=== PATIENT | male | born 1965 | race American Indian/Alaskan Native ===

== ENCOUNTER 2017-09-20 16:00 | Emergency (ER) | payer SELFPAY ==
[2017-09-20 16:22] VITALS: BP 198/122
[2017-09-20 16:58] LABS: Basophils % (Auto) 0.6 % (0.0-1.8); Eosinophils % (Auto) 0.5 % (0.0-4.3); Hematocrit 45.7 % (35.5-45.6); Hemoglobin 15.5 gm/dl (11.8-15.2); Mean Corpuscular HGB Conc 34 % (32-34); Mean Corpuscular Hemoglobin 30 pg (28-32); Mean Corpuscular Volume 89 fl (84-94); Platelet Count 194 K/mm3 (140-440); Red Blood Count 5.16 M/mm3 (3.65-5.03); Red Cell Distribution Width 13.2 % (13.2-15.2); White Blood Count 7.7 K/mm3 (4.5-11.0)
[2017-09-20 17:08] LABS: INR 0.89 (0.87-1.13); Partial Thromboplastin Time 26.4 Sec. (24.2-36.6)
[2017-09-20 17:12] LABS: Anion Gap 15 mmol/L; BUN/Creatinine Ratio 16; Blood Urea Nitrogen 16 mg/dL (9-20); Calcium 9.4 mg/dL (8.4-10.2); Carbon Dioxide 31 mmol/L (22-30); Chloride 91.7 mmol/L (98-107); Potassium 4.8 mmol/L (3.6-5.0); Sodium 133 mmol/L (137-145)
[2017-09-20 17:26] LABS: Glucose 640 mg/dL (75-100)
== END 2017-09-20 22:15 | disposition left against medical advice (07) ==
LOC: ED 16:00
DX: R07.89 Other chest pain (principal); Z53.21 Procedure and treatment not carried out due to patient leaving prior to being seen by health care provider
CPT/HCPCS: 36415; 80048; 82805; 83880; 84484; 85025; 85610; 85730; 93005; 93010

== ENCOUNTER 2021-02-22 16:44 | Emergency (ER) | payer SELFPAY ==
--- NOTE | 2021-02-22 17:24 | Event Note ---
ED Screening Note ED Screening Note: 55-year-old F [place] male with known history of hypertension and diabetes presents emerged department complaining of polydipsia, chest pain, weakness, fatigue suspicion of a low blood sugar which always helped with ingestion of ice chips. States that the symptoms have began a couple days ago and have prog ressively worsened since the onset. And now he has began to experience some left-sided chest pain, associated with occasional shortness of breath. No lower extremity swelling, no hematuria no hematemesis hematochezia no known traumatic events. Examinations alert and oriented x2 no obvious respiratory distress his breath sounds are normal abdominal sounds are hyperactive [id number] blood glucose is 360 This initial assessment/diagnostic orders/clinical plan/treatment(s) is/are subject to change based on patients health status, clinical progression and re- assessment by fellow clinical providers in the ED. Further treatment and workup at subsequent clinical providers discretion. Patient/guardian urged not to elope from the ED as their condition may be serious if not clinically assessed and managed. Initial orders include: Plan evaluate his nausea vomiting abdomen, abdominal pain and chest pain with a cardiac work-up in conjunction with a evaluation of electrolytes
[2021-02-22 17:41] LABS: Hematocrit 45.8 % (35.5-45.6); Hemoglobin 15.5 gm/dl (11.8-15.2); Mean Corpuscular HGB Conc 34 % (32-34); Mean Corpuscular Volume 89 fl (84-94); Platelet Count 217 K/mm3 (140-440); Red Blood Count 5.16 M/mm3 (3.65-5.03); Red Cell Distribution Width 13.8 % (13.2-15.2)
[2021-02-22 17:58] LABS: Alanine Aminotransferase 11 units/L (7-56); BUN/Creatinine Ratio 10; Blood Urea Nitrogen 12 mg/dL (9-20); Hemolysis Index 10
--- NOTE | 2021-02-22 18:00 | XRay Report ---
CHEST 2 VIEWS INDICATION / CLINICAL INFORMATION: Weakness. COMPARISON: None available. FINDINGS: SUPPORT DEVICES: None. HEART / MEDIASTINUM: No significant abnormality. LUNGS / PLEURA: No significant pulmonary or pleural abnormality. No pneumothorax. ADDITIONAL FINDINGS: There is spondylitic change in the thoracic spine IMPRESSION: 1. No acute findings. Signer Name: Chaka Yao MD Signed: 02/22/2021 5:55 PM Workstation Name: [id number]
[2021-02-22 18:15] LABS: Total Cells Counted 100
[2021-02-22 18:16] LABS: RBC Morphology Normal
[2021-02-22] MEDS ORDERED: SODIUM CHLORIDE 0.9% 1000 ML 1,000 ML IV ONE (23:05)
--- NOTE | 2021-02-22 23:05 | Emergency Department Report ---
- General Chief complaint: Weakness Stated complaint: GENERAL WEAKNESS Time Seen by Provider: 02/22/21 22:54 Source: patient Mode of arrival: Wheelchair Limitations: No Limitations - History of Present Illness Initial comments: 55-year-old male, history of hypertension, diabetes, CHF, presents to ED with generalized weakness since yesterday. Patient reports he has been having vo miting and diarrhea. He denies any cough or fever. Patient does report headache. Patient is hypertensive, states he is compliant with his BP meds. Patient denies any sick contacts. States he lives with his and daughter, who both contracted COVID-19 2 months ago. Patient states he never came down with COVID-19. He tested negative at that time. He has not yet received his COVID-19 vaccine. Patient hypertensive. States he did not take his blood pressure medication today. States the paramedics told him not to take it since he was coming to the emergency room. MD Complaint: generalized weakness -: days(s) (2) Location: generalized Severity: moderate Consistency: constant Improves with: none Worsens with: none Associated Symptoms: headaches, nausea/vomiting, shortness of breath. denies: fever/chills - Related Data Home Medications Medication Instructions Recorded Confirmed Last Taken cloNIDine [Catapres] 0.1 mg PO BID 08/24/15 09/18/15 09/17/15 Previous Rx's Medication Instructions Recorded Last Taken Type Aspirin [Aspirin BABY CHEW TAB] 81 mg PO QDAY #30 tab.chew 03/20/14 09/17/15 Rx Insulin NPH/Regular [NovoLIN 70/30] 10 units SQ QAM #30 dose 03/20/14 09/17/15 Rx Sertraline [Zoloft] 75 mg PO QAM #30 tablet 03/20/14 09/17/15 Rx Simvastatin (Nf) [Zocor TAB] 20 mg PO QHS #30 tablet 03/20/14 09/17/15 Rx amLODIPine [Norvasc] 10 mg PO DAILY #30 tab 03/17/20 Unknown Rx hydroCHLOROthiazide [Hctz] 12.5 mg PO QDAY #30 capsule 03/17/20 Unknown Rx Ondansetron [Zofran Odt] 4 mg PO Q8HR PRN #20 tab.rapdis 02/23/21 Unknown Rx traZODone [Desyrel] 50 mg PO QHS #30 tablet 02/23/21 Unknown Rx Allergies Allergy/AdvReac Type Severity Reaction Status Date / Time Penicillins Allergy Hives Verified 09/20/17 16:18 ED Review of Systems ROS: Stated complaint: GENERAL WEAKNESS Other details as noted in HPI Comment: All other systems reviewed and negative Constitutional: denies: chills, fever ENT: other (Denies loss of smell or taste) Gastrointestinal: nausea, vomiting, diarrhea. denies: abdominal pain Neurological: headache ED Past Medical Hx - Past Medical History Previous Medical History?: Yes Hx Hypertension: Yes Hx CVA: No Hx Heart Attack/AMI: No Hx Congestive Heart Failure: Yes Hx Diabetes: Yes - Social History Smoking Status: Never Smoker Substance Use Type: None - Medications Home Medications: Home Medications Medication Instructions Recorded Confirmed Last Taken Type Aspirin [Aspirin BABY CHEW TAB] 81 mg PO QDAY #30 tab.chew 03/20/14 09/18/15 09/17/15 Rx Insulin NPH/Regular [NovoLIN 70/30] 10 units SQ QAM #30 dose 03/20/14 09/18/15 09/17/15 Rx Sertraline [Zoloft] 75 mg PO QAM #30 tablet 03/20/14 09/18/15 09/17/15 Rx Simvastatin (Nf) [Zocor TAB] 20 mg PO QHS #30 tablet 03/20/14 09/18/15 09/17/15 Rx cloNIDine [Catapres] 0.1 mg PO BID 08/24/15 09/18/15 09/17/15 History amLODIPine [Norvasc] 10 mg PO DAILY #30 tab 03/17/20 Unknown Rx hydroCHLOROthiazide [Hctz] 12.5 mg PO QDAY #30 capsule 03/17/20 Unknown Rx Ondansetron [Zofran Odt] 4 mg PO Q8HR PRN #20 tab.rapdis 02/23/21 Unknown Rx traZODone [Desyrel] 50 mg PO QHS #30 tablet 02/23/21 Unknown Rx ED Physical Exam - General Limitations: No Limitations General appearance: alert, in no apparent distress - Head Head exam: Present: atraumatic, normocephalic - Eye Eye exam: Present: other (Patient is blind) - ENT ENT exam: Present: mucous membranes moist - Neck Neck exam: Present: normal inspection - Respiratory Respiratory exam: Present: normal lung sounds bilaterally. Absent: respiratory distress - Cardiovascular Cardiovascular Exam: Present: regular rate, normal rhythm - GI/Abdominal GI/Abdominal exam: Present: soft. Absent: distended, tenderness - Extremities Exam Extremities exam: Present: normal inspection - Neurological Exam Neurological exam: Present: alert, oriented X3, CN II-XII intact. Absent: motor sensory deficit - Psychiatric Psychiatric exam: Present: normal affect, normal mood - Skin Skin exam: Present: warm, dry, intact, normal color ED Course Vital Signs 02/22/21 02/22/21 02/22/21 16:59 22:42 22:46 Temperature 97.8 F Pulse Rate 98 H 90 89 Respiratory 18 27 H 24 Rate Blood Pressure 205/109 Blood Pressure 178/109 [Right] O2 Sat by Pulse 98 98 98 Oximetry 02/22/21 02/22/21 02/22/21 23:00 23:16 23:24 Temperature Pulse Rate 84 86 87 Respiratory 21 24 21 Rate Blood Pressure 205/109 224/107 224/107 Blood Pressure [Right] O2 Sat by Pulse 98 98 97 Oximetry 02/22/21 02/23/21 02/23/21 23:30 00:09 00:16 Temperature Pulse Rate 96 H Respiratory 19 Rate Blood Pressure 224/107 224/107 224/107 Blood Pressure [Right] O2 Sat by Pulse 97 98 97 Oximetry 02/23/21 02/23/21 02/23/21 00:18 00:30 00:46 Temperature Pulse Rate 84 Respiratory Rate Blood Pressure 224/107 179/101 179/101 Blood Pressure [Right] O2 Sat by Pulse 97 97 Oximetry 02/23/21 02/23/21 02/23/21 01:00 01:16 01:28 Temperature Pulse Rate 79 Respiratory 20 Rate Blood Pressure 157/96 157/96 Blood Pressure [Right] O2 Sat by Pulse 97 97 97 Oximetry 02/23/21 02/23/21 02/23/21 01:30 01:46 02:00 Temperature Pulse Rate 77 83 79 Respiratory 20 19 15 Rate Blood Pressure 190/105 190/105 173/97 Blood Pressure [Right] O2 Sat by Pulse 97 99 96 Oximetry ED Medical Decision Making - Lab Data Result diagrams: 02/22/21 17:30 02/22/21 17:30 - Radiology Data Radiology results: report reviewed, image reviewed - Medical Decision Making 55-year-old male presents to ED with generalized weakness, vomiting, diarrhea since yesterday. Also reports headache. Patient is hypertensive, but states that he did not take his blood pressure medication today. Patient given IV labetalol here in the ED with improvement of his blood pressure. Labs show very mild leukocytosis. Patient is hyperglycemic with glucose of 340, however he does not appear to be in DKA. Patient given 1 L bolus of IV fluids. CT abdomen pelvis was obtained which shows likely enteritis. Patient informed of incidental pulmonary nodules and need for follow-up. UA is negative for any evidence of UTI. Patient has not had any episodes of vomiting or diarrhea here in the ED. Requested refill for his trazodone. Patient will be discharged at this time with prescriptions. Outpatient follow-up advised. Return precautions given. - Differential Diagnosis UTI, pneumonia, gastroenteritis, dehydration Critical care attestation.: If time is entered above; I have spent that time in minutes in the direct care of this critically ill patient, excluding procedure time. ED Disposition Clinical Impression: Enteritis, Hyperglycemia, Uncontrolled hypertension Disposition: - TO HOME OR SELFCARE Is pt being admited?: No Condition: Stable Instructions: Viral Gastroenteritis, Adult, [id number], Hyperglycemia, [id number], Hypertension (ED) Additional Instructions: Your CAT scan shows a few small nodules in the bases of your lungs. This is an incidental finding. It is recommended that you follow-up with your primary care physician to arrange possible follow-up CAT scan in 12 months. Prescriptions: traZODone [Desyrel] 50 mg PO QHS #30 tablet Ondansetron [Zofran Odt] 4 mg PO Q8HR PRN #20 tab.rapdis PRN Reason: Vomiting Referrals: [facility] [Provider Group] - 3-[address] [facility] [place] [Outside] - 3-5 Days Time of Disposition: 01:49
--- NOTE | 2021-02-23 00:20 | Cat Scan Report ---
CT head without contrast HISTORY: Patient complains of a headache, History of Hypertension. TECHNIQUE: Axial imaging performed from the skull apex through the skull base without the use of con trast. All CT scans at this location are performed using CT dose reduction for ALARA by means of aut omated exposure control. COMPARISON: CT head from 09/18/2015 FINDINGS: Parenchyma: No acute intracranial hemorrhage or parenchymal abnormality. Periventricular hypodensiti es are likely in keeping with microangiopathy. Probable old infarct versus prominent microangiopathy in the left centrum semiovale. Ventricles: There is mild diffuse brain atrophy with commensurate ventricular enlargement which is l ikely age appropriate. Soft tissues: Soft tissues including the orbits appear normal. Bones: No acute osseous abnormality. Sinuses: Sinuses and mastoid air cells are clear. IMPRESSION: No acute abnormality. Signer Name: Ronnell Ruffin MD Signed: 02/23/2021 12:16 AM Workstation Name: [id number]
--- NOTE | 2021-02-23 00:33 | Cat Scan Report ---
CT ABDOMEN AND PELVIS WITH CONTRAST HISTORY: Pt complains of "Generalized" weakness, vomiting diarrhea. COMPARISON: None. TECHNIQUE: CT images of the abdomen and pelvis were obtained following administration of intravenous contrast. All CT scans at this location are performed using CT dose reduction for ALARA by means of automated exposure control. CONTRAST: 100 ml of intravenous contrast administered. FINDINGS: Lungs/bones: There are a few 2-3 mm pleural-based nodules in both lower lobes with no consolidation or effusion. Degenerative changes are present in the spine with nothing acute. Abdomen/pelvis: The liver, gallbladder, spleen, pancreas, adrenals, kidneys, and proximal GI tract a ppear unremarkable. The urinary bladder is unremarkable. Prostate is enlarged and indents the bladder base. No pelvic vick e fluid. No acute colonic abnormality identified. The proximal colon is difficult to visualize on thi s exam and there is diffuse haziness with mucosal enhancement throughout the right mid abdomen but no obvious obstructive change, perforation, or abscess. IMPRESSION: 1. Nonspecific findings in the right mid abdomen could be seen with enteritis. No obstruction or perf oration. 2. Pulmonary nodules in both lung bases as above. Please see below recommendations. INCIDENTAL PULMONARY NODULE RECOMMENDATION RECOMMENDATION: Solid Nodule size <6 mm -- Single or Multiple - Low Risk Patient: No routine follow-up - High Risk Patient: Optional CT at 12 months Note These recommendations do not apply to lung cancer screening, patients with immunosuppression, o r patients with known primary cancer. Note Newly detected indeterminate nodule in persons 35 years of age or older. Persons under the age of 35 should not receive follow-up unless there is a known primary cancer. Note A Perifissural Nodule is a fissure-attached/subpleural, homogeneous, solid nodule that had smoo th margins and an oval, lentiform, or triangular shape. They represent about 20% of nodules detected in lung cancer screening, are invariably benign, and do not require follow-up. Nodules 10 mm or large r (or those with suspicious features) will continue to be managed based on the size criteria. Low Risk Patient -- minimal or absent history of smoking and of other known risk factors. High Risk Patient -- history of smoking or of other known risk factors. Nodule dimensions are average of long and short axes, rounded to the nearest millimeter. Based on 2017 Fleischner Society Guidelines found in Radiology 2017 284:228-243. https://doi.org/10.1148/radiol.[email or web address] https://www.ncbi.nlm.nih.gov/pmc/articles/YWT1166178/ Signer Name: Ronnell Ruffin MD Signed: 02/23/2021 12:29 AM Workstation Name: [id number]
[2021-02-23 01:31] LABS: Bilirubin,Urine NEG (Negative); Blood,Urine NEG (Negative); Color,Urine Yellow (Yellow); Mucus,Urine FEW /HPF; Urobilinogen,Urine < 2.0 mg/dL (<2.0)
[2021-02-23 01:33] LABS: Protein,Urine >500 mg/dL (Negative)
[2021-02-23 02:17] VITALS: BP 173/97
== END 2021-02-23 02:10 | disposition home or self-care (01) ==
LOC: ED 16:44
DX: I11.0 Hypertensive heart disease with heart failure (principal); I50.9 Heart failure, unspecified; E11.65 Type 2 diabetes mellitus with hyperglycemia; K52.9 Noninfective gastroenteritis and colitis, unspecified; Z88.0 Allergy status to penicillin; Z79.899 Other long term (current) drug therapy
CPT/HCPCS: 36415; 70450; 71046; 74177; 80053; 81001; 82962; 83690; 83735; 84484; 85007; 85025; 96361; 96374; 99285; J7030; Q9967

== ENCOUNTER 2021-05-02 15:38 | Inpatient (IN) | payer MEDICAID, OTHER ==
[2021-05-02] MEDS ORDERED: cloNIDine 0.2 MG TAB PO ONE (16:07)
[2021-05-02 16:23] LABS: Basophils % (Auto) 0.5 % (0.0-1.8); Eosinophils % (Auto) 0.4 % (0.0-4.3); Hematocrit 42.5 % (35.5-45.6); Hemoglobin 14.1 gm/dl (11.8-15.2); Lymphocytes # (Auto) 1.5 K/mm3 (1.2-5.4); Lymphocytes % (Auto) 25.5 % (13.4-35.0); Mean Corpuscular HGB Conc 33 % (32-34); Mean Corpuscular Volume 89 fl (84-94); Monocytes # (Auto) 0.3 K/mm3 (0.0-0.8); Monocytes % (Auto) 5.1 % (0.0-7.3); Platelet Count 225 K/mm3 (140-440); Red Blood Count 4.78 M/mm3 (3.65-5.03); Red Cell Distribution Width 13.4 % (13.2-15.2)
[2021-05-02 16:39] LABS: Albumin 3.3 g/dL (3.9-5); Calcium 8.8 mg/dL (8.4-10.2)
[2021-05-02] MEDS ORDERED: amLODIPine 5 MG TAB PO ONE (17:06)
[2021-05-02] MEDS ORDERED: INSULIN REGULAR, HUMAN 100 UNITS/1 ML IV ONE (17:06)
--- NOTE | 2021-05-02 17:07 | Emergency Department Report ---
ED General Adult HPI - General Chief complaint: Hyperglycemia Stated complaint: BLOOD PRESSURE/ANXIETY/DIABETIC PUI?: No Time Seen by Provider: 05/02/21 16:53 Source: patient, RN notes reviewed, old records reviewed Mode of arrival: Ambulatory Limitations: Physical Limitation - History of Present Illness Initial comments: The patient is a 55-year-old gentleman. His history includes poorly controlled diabetes, hypertension, and he reports chronic visual issues for the past year. He does not have a local primary care doctor, ran out of his lisinopril 1 month ago. He also reports that he is currently taking insulin 70/30, which she gets at one of the local free facilities. The patient presents to the ER today with a complaint of painless anxiety, painless sensation of nonspecific changes in his vision, and elevated blood pressure. He denies headache, neck pain, chest pain, abdominal pain, shortness of breath, extremity weakness/numbness, Covid symptomatology. He reports that he is typically dependent on his to assist him with walking. He has not seen an scientific editor or fender mechanic, has not had a dilat ed posterior chamber examination that he is aware of. He reports that he feels like his vision is now back to its baseline, where he can perceive colors and shapes. He also reports that his anxiety and paranoia have resolved. He did report that while experiencing his nonspecific changes in vision earlier on today, he began to feel anxious and paranoid. However, this is now resolved. 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 -: Sudden Consistency: now resolved Improves with: none Worsens with: none - Related Data Home Medications Medication Instructions Recorded Confirmed Last Taken cloNIDine [Catapres] 0.1 mg PO BID 08/24/15 09/18/15 09/17/15 Previous Rx's Medication Instructions Recorded Last Taken Type Aspirin [Aspirin BABY CHEW TAB] 81 mg PO QDAY #30 tab.chew 03/20/14 09/17/15 Rx Insulin NPH/Regular [NovoLIN 70/30] 10 units SQ QAM #30 dose 03/20/14 09/17/15 Rx Sertraline [Zoloft] 75 mg PO QAM #30 tablet 03/20/14 09/17/15 Rx Simvastatin (Nf) [Zocor TAB] 20 mg PO QHS #30 tablet 03/20/14 09/17/15 Rx amLODIPine [Norvasc] 10 mg PO DAILY #30 tab 03/17/20 Unknown Rx hydroCHLOROthiazide [Hctz] 12.5 mg PO QDAY #30 capsule 03/17/20 Unknown Rx Ondansetron [Zofran Odt] 4 mg PO Q8HR PRN #20 tab.rapdis 02/23/21 Unknown Rx traZODone [Desyrel] 50 mg PO QHS #30 tablet 02/23/21 Unknown Rx Allergies Allergy/AdvReac Type Severity Reaction Status Date / Time Penicillins Allergy Hives Verified 09/20/17 16:18 ED Review of Systems ROS: Stated complaint: BLOOD PRESSURE/ANXIETY/DIABETIC Other details as noted in HPI Constitutional: denies: fever Eyes: vision change ENT: denies: epistaxis Respiratory: denies: cough Cardiovascular: denies: chest pain Genitourinary: denies: dysuria Neurological: denies: headache, weakness, numbness, paresthesias Psychiatric: anxiety Hematological/Lymphatic: denies: easy bleeding ED Past Medical Hx - Past Medical History Hx Hypertension: Yes Hx CVA: No Hx Heart Attack/AMI: No Hx Congestive Heart Failure: Yes Hx Diabetes: Yes Hx Psychiatric Treatment: Yes (anxiety) - Surgical History Past Surgical History?: No - Social History Smoking Status: Never Smoker Substance Use Type: None - Medications Home Medications: Home Medications Medication Instructions Recorded Confirmed Last Taken Type Aspirin [Aspirin BABY CHEW TAB] 81 mg PO QDAY #30 tab.chew 03/20/14 09/18/15 09/17/15 Rx Insulin NPH/Regular [NovoLIN 70/30] 10 units SQ QAM #30 dose 03/20/14 09/18/15 09/17/15 Rx Sertraline [Zoloft] 75 mg PO QAM #30 tablet 03/20/14 09/18/15 09/17/15 Rx Simvastatin (Nf) [Zocor TAB] 20 mg PO QHS #30 tablet 03/20/14 09/18/15 09/17/15 Rx cloNIDine [Catapres] 0.1 mg PO BID 08/24/15 09/18/15 09/17/15 History amLODIPine [Norvasc] 10 mg PO DAILY #30 tab 03/17/20 Unknown Rx hydroCHLOROthiazide [Hctz] 12.5 mg PO QDAY #30 capsule 03/17/20 Unknown Rx Ondansetron [Zofran Odt] 4 mg PO Q8HR PRN #20 tab.rapdis 02/23/21 Unknown Rx traZODone [Desyrel] 50 mg PO QHS #30 tablet 02/23/21 Unknown Rx ED Physical Exam - General Limitations: Physical Limitation General appearance: alert, in no apparent distress - Head Head exam: Present: atraumatic, normocephalic - Eye Eye exam: Present: normal appearance, PERRL, EOMI, other (Patient is able to perceive color, but cannot count shapes at a close distance). Absent: nystagmus - ENT ENT exam: Present: normal exam, normal orophraynx, mucous membranes moist, normal external ear exam - Neck Neck exam: Present: normal inspection, full ROM. Absent: tenderness, meningismus - Respiratory Respiratory exam: Present: normal lung sounds bilaterally. Absent: respiratory distress, wheezes, rales, rhonchi, stridor, decreased breath sounds - Cardiovascular Cardiovascular Exam: Present: regular rate, normal rhythm, normal heart sounds. Absent: bradycardia, tachycardia, irregular rhythm, systolic murmur, diastolic murmur, rubs, gallop - GI/Abdominal GI/Abdominal exam: Present: soft. Absent: distended, tenderness, guarding, rebound, rigid, pulsatile mass - Rectal Rectal exam: Present: deferred - Extremities Exam Extremities exam: Present: normal inspection, full ROM, other (2+ pulses noted in the bilateral upper and lower extremities. There is no palpable cord. negative Homans sign. Muscular compartments are soft. The pelvis is stable.). Absent: pedal edema, calf tenderness - Back Exam Back exam: Present: normal inspection, full ROM. Absent: tenderness, CVA tenderness (R), CVA tenderness (L), paraspinal tenderness, vertebral tenderness - Neurological Exam Neurological exam: Present: alert, other (No facial droop. Tongue midline. Extraocular movements intact bilaterally. Facial sensation intact to light touch in V1, V2, V3 distribution bilaterally. 5 and a 5 strength in 4 extremities. Sensation intact to light touch in 4 extremities.) - Psychiatric Psychiatric exam: Present: anxious - Skin Skin exam: Present: warm, dry, intact, normal color. Absent: rash ED Course Vital Signs 05/02/21 05/02/21 15:54 18:43 Temperature 98.5 F Pulse Rate 80 Respiratory 20 Rate Blood Pressure 220/118 211/79 [Right] O2 Sat by Pulse 96 Oximetry - Reevaluation(s) Reevaluation #1: 05/02/21 17:59 Differential diagnosis, including but not limited to: Hypertensive retinopathy, diabetic retinopathy, TIA, press syndrome, hypertensive emergency/emergency Assessment and plan: 55-year-old gentleman, who is afebrile, with hypertension, but otherwise reassuring vital signs, who is clinically sober with a GCS of 15, evidence of hyperglycemia, without anion gap acidosis, GFR 58, pseudohyponatremia, with a complaint of hypertension, anxiety, and nonspecific visual changes. He however reports that his visual symptoms are back to baseline. His examination at this time is not suggestive of a large vessel occlusion. He is back to his baseline neurologically by his history, therefore, TPA is not indicated. Emergent CT angiogram is unlikely to be of benefit. Noncontrast CT scan of the brain is requested. IV fluids and insulin ordered for hyperglycemia. Have requested neurology consultation, I discussed the patient's history, physi valeria, laboratory studies and clinical impression with neurologist, Dr. Lu. He is evaluating the patient at this moment. Patient will likely require admission to the hospital for glycemic control, blood pressure control, acquisition of MRI Have discussed this plan of care with the patient, who verbalized understanding, and is amenable to this plan of care. Patient is not encephalopathic, he does not have a headache at this time, I think press syndrome is unlikely. 05/02/21 18:20 Neurology recommendations are reviewed and appreciated. Noncontrast CT scan of the brain to my interpretation appears to be negative for acute findings. Hydralazine ordered. Formal CT interpretation is pending. Hospital physician, Dr. Rehman to admit patient to the medical service. ED Medical Decision Making - Lab Data Result diagrams: 05/02/21 16:06 05/02/21 16:06 Vital Signs 05/02/21 15:54 Temperature 98.5 F Pulse Rate 80 Respiratory 20 Rate Blood Pressure 220/118 [Right] O2 Sat by Pulse 96 Oximetry Lab Results 05/02/21 05/02/21 05/02/21 Range/Units 15:53 16:06 16:06 WBC 6.0 (4.5-11.0) K/mm3 RBC 4.78 (3.65-5.03) M/mm3 Hgb 14.1 (11.8-15.2) gm/dl Hct 42.5 (35.5-45.6) % MCV 89 (84-94) fl MCH 30 (28-32) pg MCHC 33 (32-34) % RDW 13.4 (13.2-15.2) % Plt Count 225 (140-440) K/mm3 Lymph % (Auto) 25.5 (13.4-35.0) % [place] % (Auto) 5.1 (0.0-7.3) % Eos % (Auto) 0.4 (0.0-4.3) % Baso % (Auto) 0.5 (0.0-1.8) % Lymph # (Auto) 1.5 (1.2-5.4) K/mm3 [place] # (Auto) 0.3 (0.0-0.8) K/mm3 Eos # (Auto) 0.0 (0.0-0.4) K/mm3 Baso # (Auto) 0.0 (0.0-0.1) K/mm3 Seg Neutrophils % 68.5 (40.0-70.0) % Seg Neutrophils # 4.1 (1.8-7.7) K/mm3 VBG pH (7.320-7.420) Sodium 132 L (137-145) mmol/L Potassium 3.8 (3.6-5.0) mmol/L Chloride 94.9 L (98-107) mmol/L Carbon Dioxide 29 (22-30) mmol/L Anion Gap 12 mmol/L BUN 19 (9-20) mg/dL Creatinine 1.5 H (0.8-1.3) mg/dL Estimated GFR 58 ml/min BUN/Creatinine Ratio 13 % Glucose 449 H (75-100) mg/dL POC Glucose 463 H (70-105) mg/dL Calcium 8.8 (8.4-10.2) mg/dL Total Bilirubin 0.50 (0.1-1.2) mg/dL AST 11 (5-40) units/L ALT 7 (7-56) units/L Alkaline Phosphatase 93 (35-129) units/L Total Protein 6.5 (6.3-8.2) g/dL Albumin 3.3 L (3.9-5) g/dL Albumin/Globulin Ratio 1.0 % // Range/Units 16:06 WBC (4.5-11.0) K/mm3 RBC (3.65-5.03) M/mm3 Hgb (11.8-15.2) gm/dl Hct (35.5-45.6) % MCV (84-94) fl MCH (28-32) pg MCHC (32-34) % RDW (13.2-15.2) % Plt Count (140-440) K/mm3 Lymph % (Auto) (13.4-35.0) % [place] % (Auto) (0.0-7.3) % Eos % (Auto) (0.0-4.3) % Baso % (Auto) (0.0-1.8) % Lymph # (Auto) (1.2-5.4) K/mm3 [place] # (Auto) (0.0-0.8) K/mm3 Eos # (Auto) (0.0-0.4) K/mm3 Baso # (Auto) (0.0-0.1) K/mm3 Seg Neutrophils % (40.0-70.0) % Seg Neutrophils # (1.8-7.7) K/mm3 VBG pH 7.382 (7.320-7.420) Sodium (137-145) mmol/L Potassium (3.6-5.0) mmol/L Chloride (98-107) mmol/L Carbon Dioxide (22-30) mmol/L Anion Gap mmol/L BUN (9-20) mg/dL Creatinine (0.8-1.3) mg/dL Estimated GFR ml/min BUN/Creatinine Ratio % Glucose (75-100) mg/dL POC Glucose (70-105) mg/dL Calcium (8.4-10.2) mg/dL Total Bilirubin (0.1-1.2) mg/dL AST (5-40) units/L ALT (7-56) units/L Alkaline Phosphatase (35-129) units/L Total Protein (6.3-8.2) g/dL Albumin (3.9-5) g/dL Albumin/Globulin Ratio % - EKG Data EKG shows normal: sinus rhythm Rate: normal - EKG Data 05/02/21 18:02 The EKG is interpreted at 17: 50 Sinus rhythm, 74 bpm, left axis deviation, borderline left anterior fascicular block, left ventricular hypertrophy, nonspecific T wave inversions and abnormalities. This is an abnormal EKG. This is not a STEMI. When compared to prior EKG from September 2017, T wave inversion V3, appears to be new. T wave inversions in the lateral leads appear to be more prominent. This is not a [place]. PVC noted - Radiology Data Radiology results: pending, report reviewed, image reviewed CT head/brain wo con INDICATION / CLINICAL INFORMATION: 55 years Male; htn, visual changes. TECHNIQUE: Routine CT head without contrast. All CT scans at this location are performed using CT dose reduction for ALARA by means of automated exposure control. COMPARISON: 02/22/2021 FINDINGS: BRAIN / INTRACRANIAL CONTENTS: Small lacunar infarcts seen in the right thalamic region. This finding is seen on prior. Otherwise, no acute hemorrhage, mass effect, midline shift, hydrocephalus, or acute, large territorial infarct. No signs of significant atrophy or chronic infarct. There are mild areas of decreased attenuation in the white matter of the cerebral hemispheres. These are nonspecific findings and may be related to microangiopathy (hypertension, diabetes, atherosclerosis), given the patient's age. CRANIOCERVICAL JUNCTION: No significant abnormality. ORBITS: No significant abnormality of visualized orbits. SINUSES / MASTOIDS: Visualized paranasal sinuses and mastoid air cells are essentially clear. ADDITIONAL FINDINGS: None. IMPRESSION: 1. No focal mass, hemorrhage, hydrocephalus, or acute, large territorial infarct. Signer Name: Frandy Browning MD, III Signed: 05/02/2021 5:40 PM Workstation Name: [id number] Critical Care Time: Yes Critical care time in (mins) excluding proc time.: 35 Critical care attestation.: If time is entered above; I have spent that time in minutes in the direct care of this critically ill patient, excluding procedure time. ED Disposition Clinical Impression: Hyperglycemia, Visual changes, Hypertensive urgency, malignant, Noncompliance Disposition: OP ADMIT IP TO THIS HOSP Is pt being admited?: Yes Does the pt Need Aspirin: No Condition: Good
[2021-05-02] MEDS ORDERED: hydrALAZINE 20 MG/1 ML INJ IV ONE ×2 (17:39→18:15)
--- NOTE | 2021-05-02 18:03 | Consultation ---
Medications and Allergies Allergies Allergy/AdvReac Type Severity Reaction Status Date / Time Penicillins Allergy Hives Verified 09/20/17 16:18 Home Medications Medication Instructions Recorded Confirmed Last Taken Type Aspirin [Aspirin BABY CHEW TAB] 81 mg PO QDAY #30 tab.chew 03/20/14 09/18/1510/20 Rx Insulin NPH/Regular [NovoLIN 70/30] 10 units SQ QAM #30 dose 03/20/14 09/18/15 09/17/15 Rx Sertraline [Zoloft] 75 mg PO QAM #30 tablet 03/20/14 09/18/15 09/17/15 Rx Simvastatin (Nf) [Zocor TAB] 20 mg PO QHS #30 tablet 03/20/14 09/18/15 09/17/15 Rx cloNIDine [Catapres] 0.1 mg PO BID 08/24/15 09/18/15 09/17/15 History amLODIPine [Norvasc] 10 mg PO DAILY #30 tab 03/17/20 Unknown Rx hydroCHLOROthiazide [Hctz] 12.5 mg PO QDAY #30 capsule 03/17/20 Unknown Rx Ondansetron [Zofran Odt] 4 mg PO Q8HR PRN #20 tab.rapdis 02/23/21 Unknown Rx traZODone [Desyrel] 50 mg PO QHS #30 tablet 02/23/21 Unknown Rx Physical Examination - Vital Signs Vital Signs: Vital Signs Temp Pulse Resp BP Pulse Ox 98.5 F 80 20 220/118 96 05/02/21 15:54 05/02/21 15:54 05/02/21 15:54 05/02/21 15:54 05/02/21 15:54 Results - Laboratory Findings CBC and BMP: 05/02/21 16:06 05/02/21 16:06 Abnormal Lab Findings: Abnormal Labs 05/02/21 05/02/21 15:53 16:06 Sodium 132 L Chloride 94.9 L Creatinine 1.5 H Glucose 449 H POC Glucose 463 H Albumin 3.3 L Assessment and Plan [facility] Consult Note # Demographics Consult Type: General Neurology Patient Location: Emergency Room First Name: Jose M Last Name: Soren Date of : 1965 Age: 55 Gender: Male Time of Initial Page (Eastern Time): 05/02/2021, 17:42 Time of Return Call (Eastern Time): 05/02/2021, 17:42 # HPI Chief Complaint: Vision History: 55 yo man with history of DM, HTN, 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 He states his vision was a little different but can't describe how. He denies any headache, numbness, weakness, speech changes. # Scores Time of exam and NIHSS (Eastern Time): 05/02/2021, 17:55 Level of Consciousness 1a: [0] = Alert; keenly responsive LOC Questions 1b: [0] = Answers both questions correctly LOC Commands 1c: [0] = Performs both tasks correctly Best Gaze 2: [0] = Normal Visual 3: [2] = Complete hemianopia Facial Palsy 4: [0] = Normal symmetrical movements Motor Arm Left 5a: [0] = No drift Motor Arm Right 5b: [0] = No drift Motor Leg Left 6a: [0] = No drift Motor Leg Right 6b: [0] = No drift Limb Ataxia 7: [0] = Absent Sensory 8: [0] = Normal Best Language 9: [0] = No aphasia Dysarthria 10: [0] = Normal Extinction and Inattention 11: [0] = No abnormality NIHSS Total: 2 # Exam SBP: 239 DBP: 135 Mental Status: awake alert and oriented x 3 follows commands # PMH-FH-SH Past Medical History: Diabetes hypertension Social History: non-smoker non-drinker Medications: diabetic medication non-compliant with medications aspirin 81 mg daily Allergies: penicillin # Assessment Impression: Subjective vision changes in setting of significantly elevated BP. Differential includes hypertensive urgency, PRES, stroke. # Plan Thrombolytic/Intervention: NOT IV Thrombolytic or IA Intervention Thrombolytic Exclusion: > 4.5 hours Intraarterial Exclusion: other Symptoms not suggestive of LVO Target Blood Pressure: SBP < 180 Imaging: (urgency: STAT): CT Head without contrast Imaging: (urgency: routine): MRI Brain without contrast DVT Prophylaxis: SCD chemical DVT prophylaxis Other: telemetry monitoring I have discussed my recommendations with the referring provider Additional Recommendations: - CT head without contrast stat in ED - If head CT negative recommend lowering BP to SBP goal < 180 for presumed hypertensive urgency - MRI brain without once admitted to further evaluate for PRES or Stroke. - If MRI brain negative would be more aggressive with BP lowering Disposition: admit # Logistics Telemedicine: Interactive 2 way audio and visual telecommunication technology was utilized during this visit
--- NOTE | 2021-05-02 18:44 | Cat Scan Report ---
CT head/brain wo con INDICATION / CLINICAL INFORMATION: 55 years Male; htn, visual changes. TECHNIQUE: Routine CT head without contrast. All CT scans at this location are performed using CT dos e reduction for ALARA by means of automated exposure control. COMPARISON: 02/22/2021 FINDINGS: BRAIN / INTRACRANIAL CONTENTS: Small lacunar infarcts seen in the right thalamic region. This finding is seen on prior. Otherwise, no acute hemorrhage, mass effect, midline shift, hydrocephalus, or acute, large territoria l infarct. No signs of significant atrophy or chronic infarct. There are mild areas of decreased attenuation in the white matter of the cerebral hemispheres. These are nonspecific findings and may be related to microangiopathy (hypertension, diabetes, atheroscleros is), given the patient's age. CRANIOCERVICAL JUNCTION: No significant abnormality. ORBITS: No significant abnormality of visualized orbits. SINUSES / MASTOIDS: Visualized paranasal sinuses and mastoid air cells are essentially clear. ADDITIONAL FINDINGS: None. IMPRESSION: 1. No focal mass, hemorrhage, hydrocephalus, or acute, large territorial infarct. Signer Name: Frandy Browning MD, III Signed: 05/02/2021 6:40 PM Workstation Name: [id number]
[2021-05-02] MEDS ORDERED: ASPIRIN 81 MG TAB CHEW PO ONE (18:47)
--- NOTE | 2021-05-02 19:55 | History and Physical Report ---
History of Present Illness Date of examination: 05/02/21 Date of admission: 05/02/2021 Chief complaint: Uncontrolled hypertension, uncontrolled diabetes and panic attack History of present illness: Patient is a 55-year-old male with a history of noncompliance with diabetes and hypertension. Patient ran out of his medications approximately 1 month ago has been taking some insulin. Presented to the ED with a chief complaint of nervousness anxiety. Patient stated he awakened and at breakfast became nervous scared anxious and unable to cope with surroundings. This was the cause of patient's initial presentation to the ED. Upon arrival in the ED patient was found to have hypertensive emergency with blood pressure 231/118 as well as uncontrolled diabetes. Patient also complained of vision loss therefore received initial neurology evaluation. Patient vision has not changed in 2 years. Patient stated he cannot make out colors very well he can make out sha pes and has a lot of blurry vision. But this is unchanged in 2 years. Asked patient 3 times in detail and he confirm that the vision changes are initially the same is over 2 years. A time. Patient stated that his anxiety got the best of him. Now he is more calm but still somewhat anxious. Patient has never had anxiety attack before. Cannot tell me what he was scared of. "If I knew what I was scared of I will figure it out" at present calm no chest pain no shortness of breath no dyspnea on exertion no headache. Initial CTs head findings negative Past History Past Medical History: diabetes, hypertension. denies: liver disease, PVD, pulmonary embolism, renal failure, seizures Past Surgical History: No surgical history Social history: full code, other (Lives with brother). denies: smoking, alcohol abuse, IV drug use Family history: hypertension Medications and Allergies Allergies Allergy/AdvReac Type Severity Reaction Status Date / Time Penicillins Allergy Hives Verified 09/20/17 16:18 Home Medications Medication Instructions Recorded Confirmed Last Taken Type Aspirin [Aspirin BABY CHEW TAB] 81 mg PO QDAY #30 tab.chew 03/20/14 09/18/15 09/17/15 Rx Insulin NPH/Regular [NovoLIN 70/30] 10 units SQ QAM #30 dose 03/20/14 09/18/15 09/17/15 Rx Sertraline [Zoloft] 75 mg PO QAM #30 tablet 03/20/14 09/18/15 09/17/15 Rx Simvastatin (Nf) [Zocor TAB] 20 mg PO QHS #30 tablet 03/20/14 09/18/15 09/17/15 Rx cloNIDine [Catapres] 0.1 mg PO BID 08/24/15 09/18/15 09/17/15 History amLODIPine [Norvasc] 10 mg PO DAILY #30 tab 03/17/20 Unknown Rx hydroCHLOROthiazide [Hctz] 12.5 mg PO QDAY #30 capsule 03/17/20 Unknown Rx Ondansetron [Zofran Odt] 4 mg PO Q8HR PRN #20 tab.rapdis 02/23/21 Unknown Rx traZODone [Desyrel] 50 mg PO QHS #30 tablet 02/23/21 Unknown Rx Review of Systems Constitutional: no weight loss, no weight gain, no fever, no chills, no sweats, no poor appetite, no daytime sleepiness, no chronic pain Eyes: bilateral: blurred vision, decreased vision Ears, nose, mouth and throat: no tinnitis, no decreased hearing, no hoarseness, no sore throat, no headache, no vertigo, no neck fullness/pressure Cardiovascular: high blood pressure, no chest pain, no orthopnea, no palpitations, no rapid/irregular heart beat, no edema, no syncope, no lightheadedness, no shortness of breath, no dyspnea on exertion, no paroxysmal nocturnal dyspnea, no claudication, no phlebitis, no leg edema Respiratory: no cough with sputum, no excessive sputum, no shortness of breath, no wheezing, no pleurisy, no pain, no sleep apnea, no respiratory infections, no other Gastrointestinal: no nausea, no diarrhea, no constipation, no change in bowel habits, no loss of appetite, no early satiety Genitourinary Male: no hematuria, no urinary hesitancy, no nocturia, no difficulties fathering child Musculoskeletal: no neck stiffness, no shooting arm pain, no low back pain, no leg numbness/tingling, no morning stiffness, no muscle cramps, no atrophy, no loss of height Neurological: loss of vision, no weakness, no syncope, no tremors, no convulsions, no confusion, no changes in smell/taste, no motor disturbance, no double vision, no hearing difficulties, no burning pain Psychiatric: anxiety, change in sleep habits, sleep disturbances, insomnia, depression, anxiety attacks, no memory loss, no hypersomnia, no change in appetite, no change in libido, no suicidal ideation, no disorientation, no hallucinations, no paranoia, no hopelessness, no anhedonia, no difficulties concentrating, no confusion, no irritability, no sadness/tearfullness, no mood swings Endocrine: no heat intolerance, no polyphagia, no polyuria, no nocturia, no flushing, no deepening of the voice, no thyroid mass, no high blood sugars, no low blood sugars Hematologic/Lymphatic: no easy bleeding, no thrombophilia Allergic/Immunologic: no persistent infections, no angioedema, no seasonal allergies Exam - Constitutional Vitals: Temp Pulse Resp BP Pulse Ox 98.5 F 75 18 178/109 97 05/02/21 15:54 05/02/21 19:35 05/02/21 19:35 05/02/21 19:35 05/02/21 19:35 General appearance: Present: no acute distress, well-nourished, other - EENT Eyes: Present: PERRL ENT: hearing intact, clear oral mucosa - Neck Neck: Present: supple, normal ROM - Respiratory Respiratory effort: normal Respiratory: bilateral: CTA - Cardiovascular Heart Sounds: Present: S1 & S2. Absent: rub, click - Extremities Extremities: pulses symmetrical, No edema Peripheral Pulses: within normal limits - Abdominal General gastrointestinal: Present: soft, non-tender, non-distended, normal bowel sounds Male genitourinary: Present: normal - Integumentary Integumentary: Present: clear, warm, dry - Musculoskeletal Musculoskeletal: gait normal, strength equal bilaterally - Psychiatric Psychiatric: appropriate mood/affect, intact judgment & insight - Neurologic Neurologic: CNII-XII intact, moves all extremities, other (No focal neurologic deficits. Cranial nerves intact 2-12. No neuropathy.) Results - Labs CBC & Chem 7: 05/02/21 16:06 05/02/21 16:06 Labs: Laboratory Last Values WBC 6.0 K/mm3 (4.5-11.0) 05/02/21 16:06 RBC 4.78 M/mm3 (3.65-5.03) 05/02/21 16:06 Hgb 14.1 gm/dl (11.8-15.2) 05/02/21 16:06 Hct 42.5 % (35.5-45.6) 05/02/21 16:06 MCV 89 fl (84-94) 05/02/21 16:06 MCH 30 pg (28-32) 05/02/21 16:06 MCHC 33 % (32-34) 05/02/21 16:06 RDW 13.4 % (13.2-15.2) 05/02/21 16:06 Plt Count 225 K/mm3 (140-440) 05/02/21 16:06 Lymph % (Auto) 25.5 % (13.4-35.0) 05/02/21 16:06 [place] % (Auto) 5.1 % (0.0-7.3) 05/02/21 16:06 Eos % (Auto) 0.4 % (0.0-4.3) 05/02/21 16:06 Baso % (Auto) 0.5 % (0.0-1.8) 05/02/21 16:06 Lymph # (Auto) 1.5 K/mm3 (1.2-5.4) 05/02/21 16:06 [place] # (Auto) 0.3 K/mm3 (0.0-0.8) 05/02/21 16:06 Eos # (Auto) 0.0 K/mm3 (0.0-0.4) 05/02/21 16:06 Baso # (Auto) 0.0 K/mm3 (0.0-0.1) 05/02/21 16:06 Seg Neutrophils % 68.5 % (40.0-70.0) 05/02/21 16:06 Seg Neutrophils # 4.1 K/mm3 (1.8-7.7) 05/02/21 16:06 VBG pH 7.382 (7.320-7.420) 05/02/21 16:06 Sodium 132 mmol/L (137-145) L 05/02/21 16:06 Potassium 3.8 mmol/L (3.6-5.0) 05/02/21 16:06 Chloride 94.9 mmol/L (98-107) L 05/02/21 16:06 Carbon Dioxide 29 mmol/L (22-30) 05/02/21 16:06 Anion Gap 12 mmol/L 05/02/21 16:06 BUN 19 mg/dL (9-20) 05/02/21 16:06 Creatinine 1.5 mg/dL (0.8-1.3) H 05/02/21 16:06 Estimated GFR 58 ml/min 05/02/21 16:06 BUN/Creatinine Ratio 13 % 05/02/21 16:06 Glucose 449 mg/dL (75-100) H 05/02/21 16:06 POC Glucose 463 mg/dL (70-105) H 05/02/21 15:53 Calcium 8.8 mg/dL (8.4-10.2) 05/02/21 16:06 Total Bilirubin 0.50 mg/dL (0.1-1.2) 05/02/21 16:06 AST 11 units/L (5-40) 05/02/21 16:06 ALT 7 units/L (7-56) 05/02/21 16:06 Alkaline Phosphatase 93 units/L (35-129) 05/02/21 16:06 Total Protein 6.5 g/dL (6.3-8.2) 05/02/21 16:06 Albumin 3.3 g/dL (3.9-5) L 05/02/21 16:06 Albumin/Globulin Ratio 1.0 % 05/02/21 16:06 - Imaging and Cardiology EKG: report reviewed, image reviewed CT Scan - head: image reviewed Assessment and Plan Advance Directives: Yes Plan of care discussed with patient/family: Yes - Patient Problems (1) Hypertensive emergency Status: Acute Plan to address problem: Patient with hypertensive emergency. Has been noncompliant with medications. Unlikely 5 mg of amlodipine and lisinopril can control patient's blood pressure anyway. Patient does not have a primary care doctor. Blood pressure most likely uncontrolled for quite some time. Has been out of medications for a month even if we start back lisinopril this should not help this patient's blood pressure. Head CT negative unlikely will need MRI patient has not had any neurologic deficits at all. Patient has diabetic retinopathy most likely exacerbated by hypertensive retinopathy. Will require outpatient ophthalmology evaluation. And control of underlying risk factors. -More aggressive control of blood pressure will bring systolic blood pressure down to 175. Will start p.o. cart Procardia XL 30 mg and titrate accordingly. -Also start CLAUDETTE inhibitor since patient is diabetic for renal protection -Anticipate early discharge 24-hour eval. 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 Will be more aggressive with blood pressure control start patient on insulin 70/30 10 units twice daily sliding scale and titrate accordingly. Will follow results of hemoglobin A1c. -We will also start patient on a statin since he has hypertension. And diabetes . (3) Depression Status: Acute Plan to address problem: We will resume Zoloft. Patient remains somewhat depressed. Panic attacks most likely coming from depression. We will also treat patient with Klonopin can be used as outpatient as needed panic attacks follow-up with primary care provider. (4) Panic attacks Status: Acute Plan to address problem: Klonopin as needed restart Zoloft.
[2021-05-02] MEDS ORDERED: oxyCODONE /ACETAMINOPHEN 5-325MG TAB PO PRN (20:03)
[2021-05-02] MEDS ORDERED: ZOLPIDEM 5 MG TAB PO PRN (20:03)
[2021-05-02] MEDS ORDERED: ONDANSETRON 4 MG/2 ML INJ IV PRN (20:03)
[2021-05-02] MEDS ORDERED: DEXTROSE 50% IN WATER (25GM) 50 ML SYRINGE IV PRN ×2 (20:10→21:03)
[2021-05-02] MEDS ORDERED: ENOXAPARIN 60 MG/0.6 ML INJ SUB-Q SCH (21:00)
[2021-05-02] MEDS ORDERED: NIFEdipine XL 30 MG TAB PO ONE (21:11)
[2021-05-02] MEDS ORDERED: NON-FORMULARY EACH (Simvastatin (Nf) 20 MG Tablet) PO SCH (22:00)
[2021-05-02] MEDS: LISINOPRIL 40 MG TAB PO SCH (23:37)
[2021-05-02] MEDS: cloNIDine 0.1 MG TAB PO SCH (23:37)
[2021-05-02] MEDS: PRAVASTATIN 40 MG TAB PO SCH (23:37)
[2021-05-02] MEDS: INSULIN LISPRO 100 UNIT/ML SUB-Q SCH (23:37)
[2021-05-02] MEDS: traZODone 50 MG TAB PO SCH (23:37)
[2021-05-03 06:03] LABS: Calcium 8.6 mg/dL (8.4-10.2)
--- NOTE | 2021-05-03 07:44 | Progress Note ---
Assessment and Plan Assessment and plan: Accelerated hypertension. Diabetes mellitus type 2. Depression. Panic attacks. 05/03/2021. Continue clonidine, Procardia and Zestril. BP better controlled. Psychiatry consultation for panic attacks. Continue SSRI and Accu-Cheks. History Interval history: No new issues overnight. Hospitalist Physical - Constitutional Vitals: Temp Pulse Resp BP Pulse Ox 98.0 F 66 18 154/93 97 05/03/21 04:33 05/03/21 07:34 05/03/21 04:33 05/03/21 04:33 05/03/21 04:33 General appearance: Present: no acute distress, well-nourished, other - EENT Eyes: Present: PERRL, EOM intact ENT: hearing intact, clear oral mucosa, dentition normal - Neck Neck: Present: supple, normal ROM - Respiratory Respiratory effort: normal Respiratory: bilateral: CTA - Cardiovascular Rhythm: regular Heart Sounds: Present: S1 & S2. Absent: gallop, rub - Extremities Extremities: no ischemia, No edema, Full ROM - Abdominal General gastrointestinal: soft, non-tender, non-distended, normal bowel sounds - Integumentary Integumentary: Present: clear, warm, dry - Neurologic Neurologic: CNII-XII intact, moves all extremities Results - Labs CBC & Chem 7: 05/02/21 16:06 05/03/21 05:16 Labs: Laboratory Last Values WBC 6.0 K/mm3 (4.5-11.0) 05/02/21 16:06 RBC 4.78 M/mm3 (3.65-5.03) 05/02/21 16:06 Hgb 14.1 gm/dl (11.8-15.2) 05/02/21 16:06 Hct 42.5 % (35.5-45.6) 05/02/21 16:06 MCV 89 fl (84-94) 05/02/21 16:06 MCH 30 pg (28-32) 05/02/21 16:06 MCHC 33 % (32-34) 05/02/21 16:06 RDW 13.4 % (13.2-15.2) 05/02/21 16:06 Plt Count 225 K/mm3 (140-440) 05/02/21 16:06 Lymph % (Auto) 25.5 % (13.4-35.0) 05/02/21 16:06 [place] % (Auto) 5.1 % (0.0-7.3) 05/02/21 16:06 Eos % (Auto) 0.4 % (0.0-4.3) 05/02/21 16:06 Baso % (Auto) 0.5 % (0.0-1.8) 05/02/21 16:06 Lymph # (Auto) 1.5 K/mm3 (1.2-5.4) 05/02/21 16:06 [place] # (Auto) 0.3 K/mm3 (0.0-0.8) 05/02/21 16:06 Eos # (Auto) 0.0 K/mm3 (0.0-0.4) 05/02/21 16:06 Baso # (Auto) 0.0 K/mm3 (0.0-0.1) 05/02/21 16:06 Seg Neutrophils % 68.5 % (40.0-70.0) 05/02/21 16:06 Seg Neutrophils # 4.1 K/mm3 (1.8-7.7) 05/02/21 16:06 VBG pH 7.382 (7.320-7.420) 05/02/21 16:06 Sodium 136 mmol/L (137-145) L 05/03/21 05:16 Potassium 3.3 mmol/L (3.6-5.0) L 05/03/21 05:16 Chloride 97.8 mmol/L (98-107) L 05/03/21 05:16 Carbon Dioxide 30 mmol/L (22-30) 05/03/21 05:16 Anion Gap 12 mmol/L 05/03/21 05:16 BUN 18 mg/dL (9-20) 05/03/21 05:16 Creatinine 1.5 mg/dL (0.8-1.3) H 05/03/21 05:16 Estimated GFR 58 ml/min 05/03/21 05:16 BUN/Creatinine Ratio 12 % 05/03/21 05:16 Glucose 219 mg/dL (75-100) H 05/03/21 05:16 POC Glucose 167 mg/dL (70-105) H 05/02/21 23:28 Calcium 8.6 mg/dL (8.4-10.2) 05/03/21 05:16 Total Bilirubin 0.50 mg/dL (0.1-1.2) 05/02/21 16:06 AST 11 units/L (5-40) 05/02/21 16:06 ALT 7 units/L (7-56) 05/02/21 16:06 Alkaline Phosphatase 93 units/L (35-129) 05/02/21 16:06 Total Protein 6.5 g/dL (6.3-8.2) 05/02/21 16:06 Albumin 3.3 g/dL (3.9-5) L 05/02/21 16:06 Albumin/Globulin Ratio 1.0 % 05/02/21 16:06 Wagner/IV: Voiding Method Urinal Active Medications - Current Medications Current Medications: Generic Name Dose Route Start Last Admin Trade Name Freq PRN Reason Stop Dose Admin Acetaminophen 650 mg 05/02/21 20:03 Acetaminophen 325 Mg Tab PO Q4H PRN Pain MILD(1-3)/Fever >100.5/DEE Aspirin 81 mg 05/03/21 10:00 Aspirin 81 Mg Tab Chew PO QDAY YENNI Clonazepam 1 mg 05/02/21 20:07 Clonazepam 0.5 Mg Tab PO 05/06/21 20:06 Q8H PRN Anxiety Clonidine HCl 0.1 mg 05/02/21 22:00 05/02/21 23:37 Clonidine 0.1 Mg Tab PO 0.1 mg BID YENNI Administration Dextrose 50 ml 05/02/21 21:03 Dextrose 50% In Water (25gm) 50 Ml Syringe IV Q30MIN PRN Hypoglycemia Protocol Dextrose 50 ml 05/02/21 20:10 Dextrose 50% In Water (25gm) 50 Ml Syringe IV Q30MIN PRN Hypoglycemia Protocol Enoxaparin Sodium 60 mg 05/02/21 21:00 05/02/21 23:37 Enoxaparin 60 Mg/0.6 Ml Inj SUB-Q 60 mg Q24H YENNI Administration Protocol Insulin Human Isoph/Insulin Regular 10 unit 05/03/21 10:00 Insulin Nph/Regular 70/30 Inj SUB-Q QAM YENNI Insulin Human Lispro 0 unit 05/02/21 22:00 05/02/21 23:37 Insulin Lispro 100 Unit/Ml SUB-Q 2 unit ACHS [facility] Administration Protocol Lisinopril 40 mg 05/02/21 22:00 05/02/21 23:37 Lisinopril 40 Mg Tab PO 40 mg BID YENNI Administration Ondansetron HCl 4 mg 05/02/21 20:03 Ondansetron 4 Mg/2 Ml Inj IV Q8H PRN Nausea And Vomiting Oxycodone/Acetaminophen 1 tab 05/02/21 20:03 Oxycodone /Acetaminophen 5-325mg Tab PO Q6H PRN Pain, Moderate (4-6) Pravastatin Sodium 40 mg 05/02/21 22:00 05/02/21 23:37 Pravastatin 40 Mg Tab PO 40 mg QHS YENNI Administration Sertraline HCl 75 mg 05/03/21 10:00 Sertraline 50 Mg Tab PO QAM YENNI Sodium Chloride 10 ml 05/02/21 22:00 05/02/21 23:42 Sodium Chloride 0.9% 10 Ml Flush Syringe IV 10 ml BID YENNI Administration Sodium Chloride 10 ml 05/02/21 20:03 Sodium Chloride 0.9% 10 Ml Flush Syringe IV PRN PRN LINE FLUSH Trazodone HCl 50 mg 05/02/21 22:00 05/02/21 23:37 Trazodone 50 Mg Tab PO 50 mg QHS YENNI Administration Zolpidem Tartrate 5 mg 05/02/21 20:03 Zolpidem 5 Mg Tab PO QHS PRN Insomnia
[2021-05-03] MEDS: INSULIN NPH/REGULAR 70/30 INJ SUB-Q SCH (09:02)
[2021-05-03] MEDS: SERTRALINE 50 MG TAB PO SCH (09:03)
[2021-05-03] MEDS: INSULIN LISPRO 100 UNIT/ML SUB-Q SCH ×4 (09:03→21:41)
[2021-05-03] MEDS: ASPIRIN 81 MG TAB CHEW PO SCH (09:03)
[2021-05-03] MEDS: LISINOPRIL 40 MG TAB PO SCH ×2 (09:03→21:40)
[2021-05-03] MEDS: cloNIDine 0.1 MG TAB PO SCH ×2 (09:03→21:40)
[2021-05-03] MEDS: ACETAMINOPHEN 325 MG TAB PO PRN (15:38)
[2021-05-03] MEDS: clonazePAM 0.5 MG TAB PO PRN ×2 (15:39→21:40)
--- NOTE | 2021-05-03 17:00 | Event Note ---
Date: 05/03/21 Patient was seen sleeping in bed with at the bedside. Unable to assess patient at this time. Will follow.
[2021-05-03] MEDS: ENOXAPARIN 40 MG/0.4 ML INJ SUB-Q SCH (21:39)
[2021-05-03] MEDS: traZODone 50 MG TAB PO SCH (21:40)
[2021-05-03] MEDS: PRAVASTATIN 40 MG TAB PO SCH (21:40)
[2021-05-04] MEDS: SERTRALINE 50 MG TAB PO SCH (10:06)
[2021-05-04] MEDS: cloNIDine 0.1 MG TAB PO SCH ×2 (10:07→21:15)
[2021-05-04] MEDS: ASPIRIN 81 MG TAB CHEW PO SCH (10:07)
[2021-05-04] MEDS: LISINOPRIL 40 MG TAB PO SCH ×2 (10:07→21:15)
[2021-05-04] MEDS: INSULIN NPH/REGULAR 70/30 INJ SUB-Q SCH (10:07)
[2021-05-04] MEDS: INSULIN LISPRO 100 UNIT/ML SUB-Q SCH ×4 (10:08→21:14)
--- NOTE | 2021-05-04 12:11 | Progress Note ---
Assessment and Plan Assessment and plan: -- Hypertensive emergency Status: Acute Patient with hypertensive emergency. Has been noncompliant with medications. Unlikely 5 mg of amlodipine and lisinopril can control patient's blood pressure anyway. Patient does not have a primary care doctor. Blood pressure most li miguel uncontrolled for quite some time. Has been out of medications for a month even if we start back lisinopril this should not help this patient's blood pressure. Head CT negative unlikely will need MRI patient has not had any neurologic deficits at all. Patient has diabetic retinopathy most likely exacerbated by hypertensive retinopathy. Will require outpatient ophthalmology evaluation. And control of underlying risk factors. -More aggressive control of blood pressure will bring systolic blood pressure down to 175. Will start p.o. cart Procardia XL 30 mg and titrate accordingly. -Also start CLAUDETTE inhibitor since patient is diabetic for renal protection -Anticipate early discharge 24-hour eval. 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 Will be more aggressive with blood pressure control start patient on insulin 70/30 10 units twice daily sliding scale and ti trate accordingly. Will follow results of hemoglobin A1c. -We will also start patient on a statin since he has hypertension. And diabetes. --Acute kidney injury; vasomotor nephropathy Status: Acute Gentle hydration monitor renal function avoid nephrotoxins Nephrology consult if no improvement, encourage plenty of oral fluids --Hyponatremia Status: Acute Normal saline monitor electrolytes, --hypokalemia Status: Acute Replenished with KCl, monitor electrolytes Check magnesium levels -- Depression Status: Acute We will resume Zoloft. Patient remains somewhat depressed. Panic attacks most likely coming from depression. We will also treat patient with Klonopin can be used as outpatient as needed panic attacks follow-up with primary care provider. -- Panic attacks Status: Acute Klonopin as needed restart Zoloft. We will monitor the patient and adjust management as needed Plan of care reviewed with the patient and his nurse History Interval history: I seen and examined the patient at the bedside Patient's chart and medications reviewed Patient is legally blind Alert and awake responding appropriately No new complaints Vital signs noted Hospitalist Physical - Constitutional Vitals: Temp Pulse Resp BP Pulse Ox 98.0 F 67 17 130/74 97 05/04/21 07:17 05/04/21 10:07 05/04/21 10:00 05/04/21 10:07 05/04/21 10:00 General appearance: Present: no acute distress, well-nourished, other - EENT Eyes: Present: PERRL, EOM intact - Neck Neck: Present: supple, normal ROM - Respiratory Respiratory effort: normal Respiratory: bilateral: diminished, negative: rales, rhonchi, wheezing - Cardiovascular Rhythm: regular Heart Sounds: Present: S1 & S2 - Extremities Extremities: no ischemia, No edema - Abdominal General gastrointestinal: soft, non-tender, non-distended, normal bowel sounds - Integumentary Integumentary: Present: clear, warm - Psychiatric Psychiatric: appropriate mood/affect, cooperative - Neurologic Neurologic: CNII-XII intact, moves all extremities Results - Labs CBC & Chem 7: 05/02/21 16:06 05/03/21 05:16 Labs: Laboratory Last Values WBC 6.0 K/mm3 (4.5-11.0) 05/02/21 16:06 RBC 4.78 M/mm3 (3.65-5.03) 05/02/21 16:06 Hgb 14.1 gm/dl (11.8-15.2) 05/02/21 16:06 Hct 42.5 % (35.5-45.6) 05/02/21 16:06 MCV 89 fl (84-94) 05/02/21 16:06 MCH 30 pg (28-32) 05/02/21 16:06 MCHC 33 % (32-34) 05/02/21 16:06 RDW 13.4 % (13.2-15.2) 05/02/21 16:06 Plt Count 225 K/mm3 (140-440) 05/02/21 16:06 Lymph % (Auto) 25.5 % (13.4-35.0) 05/02/21 16:06 [place] % (Auto) 5.1 % (0.0-7.3) 05/02/21 16:06 Eos % (Auto) 0.4 % (0.0-4.3) 05/02/21 16:06 Baso % (Auto) 0.5 % (0.0-1.8) 05/02/21 16:06 Lymph # (Auto) 1.5 K/mm3 (1.2-5.4) 05/02/21 16:06 [place] # (Auto) 0.3 K/mm3 (0.0-0.8) 05/02/21 16:06 Eos # (Auto) 0.0 K/mm3 (0.0-0.4) 05/02/21 16:06 Baso # (Auto) 0.0 K/mm3 (0.0-0.1) 05/02/21 16:06 Seg Neutrophils % 68.5 % (40.0-70.0) 05/02/21 16:06 Seg Neutrophils # 4.1 K/mm3 (1.8-7.7) 05/02/21 16:06 VBG pH 7.382 (7.320-7.420) 05/02/21 16:06 Sodium 136 mmol/L (137-145) L 05/03/21 05:16 Potassium 3.3 mmol/L (3.6-5.0) L 05/03/21 05:16 Chloride 97.8 mmol/L (98-107) L 05/03/21 05:16 Carbon Dioxide 30 mmol/L (22-30) 05/03/21 05:16 Anion Gap 12 mmol/L 05/03/21 05:16 BUN 18 mg/dL (9-20) 05/03/21 05:16 Creatinine 1.5 mg/dL (0.8-1.3) H 05/03/21 05:16 Estimated GFR 58 ml/min 05/03/21 05:16 BUN/Creatinine Ratio 12 % 05/03/21 05:16 Glucose 219 mg/dL (75-100) H 05/03/21 05:16 POC Glucose 181 mg/dL (70-105) H 05/04/21 07:17 Calcium 8.6 mg/dL (8.4-10.2) 05/03/21 05:16 Total Bilirubin 0.50 mg/dL (0.1-1.2) 05/02/21 16:06 AST 11 units/L (5-40) 05/02/21 16:06 ALT 7 units/L (7-56) 05/02/21 16:06 Alkaline Phosphatase 93 units/L (35-129) 05/02/21 16:06 Total Protein 6.5 g/dL (6.3-8.2) 05/02/21 16:06 Albumin 3.3 g/dL (3.9-5) L 05/02/21 16:06 Albumin/Globulin Ratio 1.0 % 05/02/21 16:06 Wagner/IV: Voiding Method Urinal Active Medications - Current Medications Current Medications: Generic Name Dose Route Start Last Admin Trade Name Freq PRN Reason Stop Dose Admin Acetaminophen 650 mg 05/02/21 20:03 05/03/21 15:38 Acetaminophen 325 Mg Tab PO 650 mg Q4H PRN Administration Pain MILD(1-3)/Fever >100.5/DEE Aspirin 81 mg 05/03/21 10:00 05/04/21 10:07 Aspirin 81 Mg Tab Chew PO 81 mg QDAY YENNI Administration Clonazepam 1 mg 05/02/21 20:07 05/03/21 21:40 Clonazepam 0.5 Mg Tab PO 05/06/21 20:06 1 mg Q8H PRN Administration Anxiety Clonidine HCl 0.1 mg 05/02/21 22:00 05/04/21 10:07 Clonidine 0.1 Mg Tab PO 0.1 mg BID YENNI Administration Dextrose 50 ml 05/02/21 20:10 Dextrose 50% In Water (25gm) 50 Ml Syringe IV Q30MIN PRN Hypoglycemia Protocol Enoxaparin Sodium 40 mg 05/03/21 22:00 05/03/21 21:39 Enoxaparin 40 Mg/0.4 Ml Inj SUB-Q 40 mg QDAY@2200 YENNI Administration Protocol Insulin Human Isoph/Insulin Regular 10 unit 05/03/21 10:00 05/04/21 10:07 Insulin Nph/Regular 70/30 Inj SUB-Q 10 unit QAM YENNI Administration Insulin Human Lispro 0 unit 05/02/21 22:00 05/04/21 10:08 Insulin Lispro 100 Unit/Ml SUB-Q Not Given ACHS [facility] Protocol Lisinopril 40 mg 05/02/21 22:00 05/04/21 10:07 Lisinopril 40 Mg Tab PO 40 mg BID YENNI Administration Ondansetron HCl 4 mg 05/02/21 20:03 05/03/21 15:40 Ondansetron 4 Mg/2 Ml Inj IV 4 mg Q8H PRN Administration Nausea And Vomiting Oxycodone/Acetaminophen 1 tab 05/02/21 20:03 Oxycodone /Acetaminophen 5-325mg Tab PO Q6H PRN Pain, Moderate (4-6) Pravastatin Sodium 40 mg 05/02/21 22:00 05/03/21 21:40 Pravastatin 40 Mg Tab PO 40 mg QHS YENNI Administration Sertraline HCl 75 mg 05/03/21 10:00 05/04/21 10:06 Sertraline 50 Mg Tab PO 75 mg QAM YENNI Administration Sodium Chloride 10 ml 05/02/21 22:00 05/04/21 10:08 Sodium Chloride 0.9% 10 Ml Flush Syringe IV 10 ml BID YENNI Administration Sodium Chloride 10 ml 05/02/21 20:03 Sodium Chloride 0.9% 10 Ml Flush Syringe IV PRN PRN LINE FLUSH Trazodone HCl 50 mg 05/02/21 22:00 05/03/21 21:40 Trazodone 50 Mg Tab PO 50 mg QHS YENNI Administration Zolpidem Tartrate 5 mg 05/02/21 20:03 Zolpidem 5 Mg Tab PO QHS PRN Insomnia
--- NOTE | 2021-05-04 15:55 | Consultation ---
History of Present Illness - Reason for Consult Consult date: 05/04/21 Reason for consult: Anxiety - Chief Complaint Chief complaint: Uncontrolled hypertension, uncontrolled diabetes and panic attack - History of Present Psychiatric Illness Per Note:Patient is a 55-year-old male with a history of noncompliance with diabetes and hypertension. Patient ran out of his medications approximately 1 month ago has been taking some insulin. Presented to the ED with a chief complaint of nervousness anxiety. Patient stated he awakened and at breakfast became nervous scared anxious and unable to cope with surroundings. This was the cause of patient's initial presentation to the ED. Upon arrival in the ED patient was found to have hypertensive emergency with blood pressure 231/118 as well as uncontrolled diabetes. Patient also complained of vision loss therefore received initial neurology evaluation. Patient vision has not changed in 2 years. Patient stated he cannot make out colors very well he can make out shapes and has a lot of blurry vision. But this is unchanged in 2 years. Asked patient 3 times in detail and he confirm that the vision changes are initially the same is over 2 years. A time. Patient stated that his anxiety got the best of him. Now he is more calm but still somewhat anxious. Patient has never had anxiety attack before. Cannot tell me what he was scared of. "If I knew what I was scared of I will figure it out" at present calm no chest pain no shortness of breath no dyspnea on exertion no headache. Initial CTs head findings negative. Jose M Doty is a 55 year old male with a past hist of depression who presented to the ED for increasing anxiety. During my interview with patient today, he reports having anxiety that started about a month ago. Patient states his anxiety worsens when he is around people. Patient also endorses depression which he states " I lost my vision, I cannot work." He reports difficulty with starting and maintaining sleep " I stay up all night." He denies use of any illicit drug. Patient denies any current suicidal/homicidal ideation but admits having intermittent Auditory and visual hallucinations. PAST PSYCHIATRIC HISTORY Diagnoses: Depression Suicide attempts or Self-harm behavior: Denied Prior psychiatric hospitalizations: Denied Substance Abuse history: denied Previous psychiatric medications tried: Trazodone, Clonazepam, Zolpidem (current) Outpatient treatment: No PAST MEDICAL HISTORY:Diabetes and Hypertension Family Psychiatric History: None reported or documented SOCIAL HISTORY Marital Status: Living Arrangements: with Employment Status: Disabled Access to guns/weapons: None reported Education: 12th grade History of Abuse:None reported Legal History: None reported REVIEW OF SYSTEMS Constitutional: Negative for weight loss ENT: Negative for stridor, Blurry Vision Respiratory: Negative for cough or hemoptysis All other systems reviewed and are negative MENTAL STATUS EXAMINATION General Appearance and Behavior: Age appropriate, dressed appropriately, good eye contact Cooperation: Participating Psychomotor Behavior: Psychomotor normal Mood: Good Affect and affective range: congruent with states mood Thought Process: logical Thought Content: Goal directed Speech: hyperverbal, flight of ideas, increased tone and pace Intellectual Functioning: Average Suicidal Ideation: Denies SI Homicidal Ideation: Denies HI Hallucinations: auditory and visual intermittent Delusions: No Impulse Control: Impaired Insight and Judgment: Limited insight and judgment Memory: Impaired Attention: Destractible Orientation: Alert, oriented Assessment and Plan (1)Anxiety Disorder, Unspecified- F41.1 (2)Major Depressive Disorder, Recurrent Moderate- F33.1 (3)Insomnia- G47.00 Current Visit: Yes Status: Acute Treatment Plan Start Effexor 37.5mg po daily Continue Clonazepam 1mg po Q8 HRs PRN Start Trazodone 1000mg po QHS Continue Zolpidem 5mg po QHS PRN Risks, benefits and alternatives of medications discussed with the patient, questions answered and consent obtained from patient. PSYCHOTHERAPY: Supportive psychotherapy provided MEDICAL: Per primary team DELIRIUM PRECAUTIONS: Please re-orient patient frequently, keep lights on during the day, and minimize benzodiazepines and opiates as these medications could worsen patient's confusion. [employer]: Per medical team DISPOSITION: Do not recommend acute inpatient psychiatric hospitalization at this time FOLLOW-UP: Will sign off Thank you for the consult. Please contact with any questions and/or concerns. Medications and Allergies Allergies Allergy/AdvReac Type Severity Reaction Status Date / Time Penicillins Allergy Hives Verified 09/20/17 16:18 Home Medications Medication Instructions Recorded Confirmed Last Taken Type Aspirin [Aspirin BABY CHEW TAB] 81 mg PO QDAY #30 tab.chew 03/20/14 09/18/15 09/17/15 Rx Insulin NPH/Regular [NovoLIN 70/30] 10 units SQ QAM #30 dose 03/20/14 09/18/15 09/17/15 Rx Sertraline [Zoloft] 75 mg PO QAM #30 tablet 03/20/14 09/18/15 09/17/15 Rx Simvastatin (Nf) [Zocor TAB] 20 mg PO QHS #30 tablet 03/20/14 09/18/15 09/17/15 Rx cloNIDine [Catapres] 0.1 mg PO BID 08/24/15 09/18/15 09/17/15 History amLODIPine [Norvasc] 10 mg PO DAILY #30 tab 03/17/20 Unknown Rx hydroCHLOROthiazide [Hctz] 12.5 mg PO QDAY #30 capsule 03/17/20 Unknown Rx Ondansetron [Zofran Odt] 4 mg PO Q8HR PRN #20 tab.rapdis 02/23/21 Unknown Rx traZODone [Desyrel] 50 mg PO QHS #30 tablet 02/23/21 Unknown Rx Active Meds: Active Medications Acetaminophen (Acetaminophen 325 Mg Tab) 650 mg PO Q4H PRN PRN Reason: Pain MILD(1-3)/Fever >100.5/DEE Last Admin: 05/03/21 15:38 Dose: 650 mg Documented by: Aspirin (Aspirin 81 Mg Tab Chew) 81 mg PO QDAY [facility] Last Admin: 05/04/21 10:07 Dose: 81 mg Documented by: Clonazepam (Clonazepam 0.5 Mg Tab) 1 mg PO Q8H PRN PRN Reason: Anxiety Stop: 05/06/21 20:06 Last Admin: 05/03/21 21:40 Dose: 1 mg Documented by: Clonidine HCl (Clonidine 0.1 Mg Tab) 0.1 mg PO BID [facility] Last Admin: 05/04/21 10:07 Dose: 0.1 mg Documented by: Dextrose (Dextrose 50% In Water (25gm) 50 Ml Syringe) 50 ml IV Q30MIN PRN; Protocol PRN Reason: Hypoglycemia Enoxaparin Sodium (Enoxaparin 40 Mg/0.4 Ml Inj) 40 mg SUB-Q QDAY@2200 [facility]; Protocol Last Admin: 05/03/21 21:39 Dose: 40 mg Documented by: Insulin Human Isoph/Insulin Regular (Insulin Nph/Regular 70/30 Inj) 10 unit SUB-Q [place] Last Admin: 05/04/21 10:07 Dose: 10 unit Documented by: Insulin Human Lispro (Insulin Lispro 100 Unit/Ml) 0 unit SUB-Q [facility]; Protocol Last Admin: 05/04/21 12:27 Dose: 4 unit Documented by: Lisinopril (Lisinopril 40 Mg Tab) 40 mg PO BID [facility] Last Admin: 05/04/21 10:07 Dose: 40 mg Documented by: Ondansetron HCl (Ondansetron 4 Mg/2 Ml Inj) 4 mg IV Q8H PRN PRN Reason: Nausea And Vomiting Last Admin: 05/03/21 15:40 Dose: 4 mg Documented by: Oxycodone/Acetaminophen (Oxycodone /Acetaminophen 5-325mg Tab) 1 tab PO Q6H PRN PRN Reason: Pain, Moderate (4-6) Pravastatin Sodium (Pravastatin 40 Mg Tab) 40 mg PO QHS [facility] Last Admin: 05/03/21 21:40 Dose: 40 mg Documented by: Sertraline HCl (Sertraline 50 Mg Tab) 75 mg PO QAM [facility] Last Admin: 05/04/21 10:06 Dose: 75 mg Documented by: Sodium Chloride (Sodium Chloride 0.9% 10 Ml Flush Syringe) 10 ml IV BID [facility] Last Admin: 05/04/21 10:08 Dose: 10 ml Documented by: Sodium Chloride (Sodium Chloride 0.9% 10 Ml Flush Syringe) 10 ml IV PRN PRN PRN Reason: LINE FLUSH Trazodone HCl (Trazodone 50 Mg Tab) 50 mg PO QHS [facility] Last Admin: 05/03/21 21:40 Dose: 50 mg Documented by: Zolpidem Tartrate (Zolpidem 5 Mg Tab) 5 mg PO QHS PRN PRN Reason: Insomnia Mental Status Exam - Vital signs Last Vital Signs Temp 98.0 F 05/04/21 07:17 Pulse 67 05/04/21 10:07 Resp 17 05/04/21 10:00 BP 130/74 05/04/21 10:07 Pulse Ox 97 05/04/21 10:00 Results Result Diagrams: 05/02/21 16:06 05/03/21 05:16 Abnormal lab results 05/03/21 05/04/21 05/04/21 Range/Units 21:21 07:17 12:10 POC Glucose 281 H 181 H 268 H (70-105) mg/dL All other labs normal.
[2021-05-04] MEDS ORDERED: hydrOXYzine PAMOATE 25 MG CAP PO PRN (16:40)
[2021-05-04] MEDS: PRAVASTATIN 40 MG TAB PO SCH (21:14)
[2021-05-04] MEDS: ENOXAPARIN 40 MG/0.4 ML INJ SUB-Q SCH (21:15)
[2021-05-04] MEDS: traZODone 100 MG TAB PO SCH (21:15)
[2021-05-05 06:32] LABS: Calcium 8.6 mg/dL (8.4-10.2)
[2021-05-05] MEDS: INSULIN LISPRO 100 UNIT/ML SUB-Q SCH ×4 (08:43→22:07)
[2021-05-05] MEDS: INSULIN NPH/REGULAR 70/30 INJ SUB-Q SCH (09:49)
[2021-05-05] MEDS: LISINOPRIL 40 MG TAB PO SCH ×2 (09:49→21:19)
[2021-05-05] MEDS: ASPIRIN 81 MG TAB CHEW PO SCH (09:50)
[2021-05-05] MEDS: SERTRALINE 100 MG TAB PO SCH (09:50)
[2021-05-05] MEDS: cloNIDine 0.1 MG TAB PO SCH ×2 (09:50→21:19)
[2021-05-05] MEDS ORDERED: VENLAFAXINE 37.5 MG TAB PO SCH (10:00)
--- NOTE | 2021-05-05 10:39 | Progress Note ---
Assessment and Plan Assessment and plan: -- Hypertensive emergency Status: Acute Moderate control, continue current antihypertensives, as needed medications Closely monitor blood pressures and adjust the medications as needed Counseled the patient to comply with medications and diet and follow-up visits -- Uncontrolled insulin dependent diabetes mellitus with retinopathy Status: Acute Blood sugars better controlled today, continue Accu-Chek sliding scale coverage ADA diet and insulin as needed Diabetic education, diabetic diet education prior to discharge, check A1c Possible home health nurse for disease monitoring at discharge Closely monitor the blood sugars and adjust the management as needed uncontrolled diabetes with retinopathy. Patient needs to see lead qa analyst periodically for close monitoring of his vision/retinopathy Continue statin , check lipid panel, target LDL less than 70 --Acute kidney injury; vasomotor nephropathy Status: Acute Gentle hydration monitor renal function avoid nephrotoxins Nephrology consult if no improvement, encourage plenty of oral fluids --Hyponatremia Status: Acute Normal saline monitor electrolytes, --hypokalemia Status: Acute Replenished with KCl, monitor electrolytes Check magnesium levels -- Depression/anxiety Status: Acute Psych following , continue current medications we will resume Zoloft. Patient remains somewhat depressed. Panic attacks most likely coming from depression. We will also treat patient with Klonopin can be used as outpatient Patient will follow psych upon discharge --DVT prophylaxis; Status: Acute Subcu Lovenox, renal dose -- Panic attacks Status: Acute Klonopin as needed restart Zoloft. We will monitor the patient and adjust management as needed Plan of care reviewed with the patient and his nurse 05/05/2021; Blood sugars and blood pressures are better controlled Home health nurse for disease monitoring upon discharge Possible placement and medically stable History Interval history: I have seen and examined the patient at the bedside Patient's chart and medications reviewed Patient has no new complaints Patient is confused at times Vital signs noted Hospitalist Physical - Constitutional Vitals: Temp Pulse Resp BP Pulse Ox 98.2 F 78 16 142/87 98 05/05/21 07:41 05/05/21 09:50 05/05/21 07:49 05/05/21 09:50 05/05/21 07:49 General appearance: Present: no acute distress, well-nourished, other (Confused at times) - EENT Eyes: Present: PERRL, EOM intact - Neck Neck: Present: supple, normal ROM - Respiratory Respiratory effort: normal Respiratory: bilateral: diminished, negative: rales, rhonchi, wheezing - Cardiovascular Rhythm: regular Heart Sounds: Present: S1 & S2 - Extremities Extremities: no ischemia, No edema - Abdominal General gastrointestinal: soft, non-tender, non-distended, normal bowel sounds - Integumentary Integumentary: Present: clear, warm - Psychiatric Psychiatric: appropriate mood/affect, other (Confused at times) - Neurologic Neurologic: moves all extremities Results - Labs CBC & Chem 7: 05/02/21 16:06 05/05/21 05:19 Labs: Laboratory Last Values WBC 6.0 K/mm3 (4.5-11.0) 05/02/21 16:06 RBC 4.78 M/mm3 (3.65-5.03) 05/02/21 16:06 Hgb 14.1 gm/dl (11.8-15.2) 05/02/21 16:06 Hct 42.5 % (35.5-45.6) 05/02/21 16:06 MCV 89 fl (84-94) 05/02/21 16:06 MCH 30 pg (28-32) 05/02/21 16:06 MCHC 33 % (32-34) 05/02/21 16:06 RDW 13.4 % (13.2-15.2) 05/02/21 16:06 Plt Count 225 K/mm3 (140-440) 05/02/21 16:06 Lymph % (Auto) 25.5 % (13.4-35.0) 05/02/21 16:06 [place] % (Auto) 5.1 % (0.0-7.3) 05/02/21 16:06 Eos % (Auto) 0.4 % (0.0-4.3) 05/02/21 16:06 Baso % (Auto) 0.5 % (0.0-1.8) 05/02/21 16:06 Lymph # (Auto) 1.5 K/mm3 (1.2-5.4) 05/02/21 16:06 [place] # (Auto) 0.3 K/mm3 (0.0-0.8) 05/02/21 16:06 Eos # (Auto) 0.0 K/mm3 (0.0-0.4) 05/02/21 16:06 Baso # (Auto) 0.0 K/mm3 (0.0-0.1) 05/02/21 16:06 Seg Neutrophils % 68.5 % (40.0-70.0) 05/02/21 16:06 Seg Neutrophils # 4.1 K/mm3 (1.8-7.7) 05/02/21 16:06 VBG pH 7.382 (7.320-7.420) 05/02/21 16:06 Sodium 135 mmol/L (137-145) L 05/05/21 05:19 Potassium 3.5 mmol/L (3.6-5.0) L 05/05/21 05:19 Chloride 98.0 mmol/L (98-107) 05/05/21 05:19 Carbon Dioxide 25 mmol/L (22-30) 05/05/21 05:19 Anion Gap 16 mmol/L 05/05/21 05:19 BUN 38 mg/dL (9-20) H 05/05/21 05:19 Creatinine 2.4 mg/dL (0.8-1.3) H D 05/05/21 05:19 Estimated GFR 34 ml/min 05/05/21 05:19 BUN/Creatinine Ratio 16 % 05/05/21 05:19 Glucose 168 mg/dL (75-100) H 05/05/21 05:19 POC Glucose 194 mg/dL (70-105) H 05/05/21 07:40 Calcium 8.6 mg/dL (8.4-10.2) 05/05/21 05:19 Phosphorus 5.00 mg/dL (2.5-4.5) H 05/05/21 05:19 Magnesium 2.60 mg/dL (1.7-2.3) H 05/05/21 05:19 Total Bilirubin 0.50 mg/dL (0.1-1.2) 05/02/21 16:06 AST 11 units/L (5-40) 05/02/21 16:06 ALT 7 units/L (7-56) 05/02/21 16:06 Alkaline Phosphatase 93 units/L (35-129) 05/02/21 16:06 Total Protein 6.5 g/dL (6.3-8.2) 05/02/21 16:06 Albumin 3.3 g/dL (3.9-5) L 05/02/21 16:06 Albumin/Globulin Ratio 1.0 % 05/02/21 16:06 Wagner/IV: Voiding Method Urinal Active Medications - Current Medications Current Medications: Generic Name Dose Route Start Last Admin Trade Name Freq PRN Reason Stop Dose Admin Acetaminophen 650 mg 05/02/21 20:03 05/03/21 15:38 Acetaminophen 325 Mg Tab PO 650 mg Q4H PRN Administration Pain MILD(1-3)/Fever >100.5/DEE Aspirin 81 mg 05/03/21 10:00 05/05/21 09:50 Aspirin 81 Mg Tab Chew PO 81 mg QDAY YENNI Administration Clonazepam 1 mg 05/02/21 20:07 05/03/21 21:40 Clonazepam 0.5 Mg Tab PO 05/06/21 20:06 1 mg Q8H PRN Administration Anxiety Clonidine HCl 0.1 mg 05/02/21 22:00 05/05/21 09:50 Clonidine 0.1 Mg Tab PO 0.1 mg BID YENNI Administration Dextrose 50 ml 05/02/21 20:10 Dextrose 50% In Water (25gm) 50 Ml Syringe IV Q30MIN PRN Hypoglycemia Protocol Enoxaparin Sodium 30 mg 05/05/21 22:00 Enoxaparin 30 Mg/0.3 Ml Inj SUB-Q QDAY@2200 [facility] Protocol Hydroxyzine Pamoate 25 mg 05/04/21 16:40 Hydroxyzine P[place] 25 Mg Cap PO Q6H PRN Anxiety Insulin Human Isoph/Insulin Regular 10 unit 05/03/21 10:00 05/05/21 09:49 Insulin Nph/Regular 70/30 Inj SUB-Q 10 unit QAM YENNI Administration Insulin Human Lispro 0 unit 05/02/21 22:00 05/05/21 08:43 Insulin Lispro 100 Unit/Ml SUB-Q 2 unit ACHS YENNI Administration Protocol Lisinopril 40 mg 05/02/21 22:00 05/05/21 09:49 Lisinopril 40 Mg Tab PO 40 mg BID YENNI Administration Ondansetron HCl 4 mg 05/02/21 20:03 05/03/21 15:40 Ondansetron 4 Mg/2 Ml Inj IV 4 mg Q8H PRN Administration Nausea And Vomiting Oxycodone/Acetaminophen 1 tab 05/02/21 20:03 Oxycodone /Acetaminophen 5-325mg Tab PO Q6H PRN Pain, Moderate (4-6) Pravastatin Sodium 40 mg 05/02/21 22:00 05/04/21 21:14 Pravastatin 40 Mg Tab PO 40 mg QHS YENNI Administration Sertraline HCl 100 mg 05/05/21 10:00 05/05/21 09:50 Sertraline 100 Mg Tab PO 100 mg QDAY YENNI Administration Sodium Chloride 10 ml 05/02/21 22:00 05/05/21 09:51 Sodium Chloride 0.9% 10 Ml Flush Syringe IV 10 ml BID YENNI Administration Sodium Chloride 10 ml 05/02/21 20:03 Sodium Chloride 0.9% 10 Ml Flush Syringe IV PRN PRN LINE FLUSH Trazodone HCl 100 mg 05/04/21 22:00 05/04/21 21:15 Trazodone 100 Mg Tab PO 100 mg QHS YENNI Administration Zolpidem Tartrate 5 mg 05/02/21 20:03 Zolpidem 5 Mg Tab PO QHS PRN Insomnia
--- NOTE | 2021-05-05 14:26 | Electrocardiograph Report ---
[facility] Test Date: 2021-05-02 Test Time: 17:50:08 Pat Name: PAUL MONCADA Department: Room: A474 1 Gender: M Courtroom Deputy: SAMANTHA : 1965 Requested By: HAYLEY LANCE Order Number: [id number] Reading MD: Bandar Jorgensen Measurements Intervals [place] Rate: 74 P: 7 SC: 166 QRS: -43 QRSD: 89 T: 145 QT: 402 QTc: 448 Interpretive Statements Sinus rhythm Ventricular premature complex Left axis deviation Nonspecific T abnrm, anterolateral leads No previous ECG available for comparison Electronically Signed On 05-05-2021 14:26:17 EDT by Bandar Jorgensen
[2021-05-05] MEDS: PRAVASTATIN 40 MG TAB PO SCH (21:18)
[2021-05-05] MEDS: traZODone 100 MG TAB PO SCH (21:19)
[2021-05-05] MEDS: ENOXAPARIN 30 MG/0.3 ML INJ SUB-Q SCH (21:19)
[2021-05-06 05:25] LABS: Calcium 8.4 mg/dL (8.4-10.2); Chol/HDL Ratio 3.1 %
[2021-05-06] MEDS: INSULIN LISPRO 100 UNIT/ML SUB-Q SCH ×4 (09:53→21:43)
[2021-05-06] MEDS: cloNIDine 0.1 MG TAB PO SCH ×2 (09:54→21:45)
[2021-05-06] MEDS: SERTRALINE 100 MG TAB PO SCH (09:54)
[2021-05-06] MEDS: ASPIRIN 81 MG TAB CHEW PO SCH (09:54)
[2021-05-06] MEDS: LISINOPRIL 40 MG TAB PO SCH ×2 (09:55→21:44)
[2021-05-06] MEDS: INSULIN NPH/REGULAR 70/30 INJ SUB-Q SCH (09:55)
--- NOTE | 2021-05-06 19:03 | Progress Note ---
Assessment and Plan Assessment and plan: -- Hypertensive emergency Status: Acute Moderate control, continue current antihypertensives, as needed medications Closely monitor blood pressures and adjust the medications as needed Counseled the patient to comply with medications and diet and follow-up visits -- Uncontrolled insulin dependent diabetes mellitus with retinopathy Status: Acute Blood sugars better controlled today, continue Accu-Chek sliding scale coverage ADA diet and insulin as needed Diabetic education, diabetic diet education prior to discharge, check A1c Possible home health nurse for disease monitoring at discharge Closely monitor the blood sugars and adjust the management as needed uncontrolled diabetes with retinopathy. Patient needs to see phlebotomist prn periodically for close monitoring of his vision/retinopathy Continue statin , check lipid panel, target LDL less than 70 --Acute kidney injury; vasomotor nephropathy Status: Acute Gentle hydration monitor renal function avoid nephrotoxins Nephrology consult if no improvement, encourage plenty of oral fluids --Hyponatremia Status: Acute Normal saline monitor electrolytes, --hypokalemia Status: Acute Replenished with KCl, monitor electrolytes Check magnesium levels -- Depression/anxiety Status: Acute Psych following , continue current medications we will resume Zoloft. Patient remains somewhat depressed. Panic attacks most likely coming from depression. We will also treat patient with Klonopin can be used as outpatient Patient will follow psych upon discharge --DVT prophylaxis; Status: Acute Subcu Lovenox, renal dose -- Panic attacks Status: Acute Klonopin as needed restart Zoloft. We will monitor the patient and adjust management as needed Plan of care reviewed with the patient and his nurse 05/05/2021; Blood sugars and blood pressures are better controlled Home health nurse for disease monitoring upon discharge Possible placement and medically stable 05/06/2021; patient feels better PT evaluated for discharge needs recommend home health PT Possible discharge home tomorrow if stable History Interval history: I have seen and examined this afternoon at the bedside Patient is more alert and awake no new complaints Vital signs reviewed Hospitalist Physical - Constitutional Vitals: Temp Pulse Resp BP Pulse Ox 98.3 F 61 19 150/89 99 05/06/21 16:39 05/06/21 16:39 05/06/21 16:39 05/06/21 16:39 05/06/21 16:39 General appearance: Present: no acute distress, well-nourished, other (Confused at times) - EENT Eyes: Present: PERRL, EOM intact - Neck Neck: Present: supple, normal ROM - Respiratory Respiratory effort: normal Respiratory: bilateral: diminished, negative: rales, rhonchi, wheezing - Cardiovascular Rhythm: regular Heart Sounds: Present: S1 & S2 - Extremities Extremities: no ischemia, No edema - Abdominal General gastrointestinal: soft, non-tender, non-distended, normal bowel sounds - Integumentary Integumentary: Present: clear, warm - Psychiatric Psychiatric: appropriate mood/affect, cooperative - Neurologic Neurologic: CNII-XII intact, moves all extremities Results - Labs CBC & Chem 7: 05/02/21 16:06 05/06/21 04:14 Labs: Laboratory Last Values WBC 6.0 K/mm3 (4.5-11.0) 05/02/21 16:06 RBC 4.78 M/mm3 (3.65-5.03) 05/02/21 16:06 Hgb 14.1 gm/dl (11.8-15.2) 05/02/21 16:06 Hct 42.5 % (35.5-45.6) 05/02/21 16:06 MCV 89 fl (84-94) 05/02/21 16:06 MCH 30 pg (28-32) 05/02/21 16:06 MCHC 33 % (32-34) 05/02/21 16:06 RDW 13.4 % (13.2-15.2) 05/02/21 16:06 Plt Count 225 K/mm3 (140-440) 05/02/21 16:06 Lymph % (Auto) 25.5 % (13.4-35.0) 05/02/21 16:06 [place] % (Auto) 5.1 % (0.0-7.3) 05/02/21 16:06 Eos % (Auto) 0.4 % (0.0-4.3) 05/02/21 16:06 Baso % (Auto) 0.5 % (0.0-1.8) 05/02/21 16:06 Lymph # (Auto) 1.5 K/mm3 (1.2-5.4) 05/02/21 16:06 [place] # (Auto) 0.3 K/mm3 (0.0-0.8) 05/02/21 16:06 Eos # (Auto) 0.0 K/mm3 (0.0-0.4) 05/02/21 16:06 Baso # (Auto) 0.0 K/mm3 (0.0-0.1) 05/02/21 16:06 Seg Neutrophils % 68.5 % (40.0-70.0) 05/02/21 16:06 Seg Neutrophils # 4.1 K/mm3 (1.8-7.7) 05/02/21 16:06 VBG pH 7.382 (7.320-7.420) 05/02/21 16:06 Sodium 139 mmol/L (137-145) 05/06/21 04:14 Potassium 3.4 mmol/L (3.6-5.0) L 05/06/21 04:14 Chloride 100.0 mmol/L (98-107) 05/06/21 04:14 Carbon Dioxide 31 mmol/L (22-30) H 05/06/21 04:14 Anion Gap 11 mmol/L 05/06/21 04:14 BUN 40 mg/dL (9-20) H 05/06/21 04:14 Creatinine 2.2 mg/dL (0.8-1.3) H 05/06/21 04:14 Estimated GFR 38 ml/min 05/06/21 04:14 BUN/Creatinine Ratio 18 % 05/06/21 04:14 Glucose 131 mg/dL (75-100) H 05/06/21 04:14 POC Glucose 93 mg/dL (70-105) 05/06/21 16:40 Hemoglobin A1c 13.5 % (4-6) H 05/06/21 04:14 Calcium 8.4 mg/dL (8.4-10.2) 05/06/21 04:14 Phosphorus 4.90 mg/dL (2.5-4.5) H 05/06/21 04:14 Magnesium 2.60 mg/dL (1.7-2.3) H 05/06/21 04:14 Total Bilirubin 0.50 mg/dL (0.1-1.2) 05/02/21 16:06 AST 11 units/L (5-40) 05/02/21 16:06 ALT 7 units/L (7-56) 05/02/21 16:06 Alkaline Phosphatase 93 units/L (35-129) 05/02/21 16:06 Total Protein 6.5 g/dL (6.3-8.2) 05/02/21 16:06 Albumin 3.3 g/dL (3.9-5) L 05/02/21 16:06 Albumin/Globulin Ratio 1.0 % 05/02/21 16:06 Triglycerides 60 mg/dL (2-149) 05/06/21 04:14 Cholesterol 146 mg/dL (50-199) 05/06/21 04:14 LDL Cholesterol Direct 94 mg/dL (50-130) 05/06/21 04:14 HDL Cholesterol 47 mg/dL (40-59) 05/06/21 04:14 Cholesterol/HDL Ratio 3.10 % 05/06/21 04:14 Wagner/IV: Voiding Method Urinal Active Medications - Current Medications Current Medications: Generic Name Dose Route Start Last Admin Trade Name Freq PRN Reason Stop Dose Admin Acetaminophen 650 mg 05/02/21 20:03 05/03/21 15:38 Acetaminophen 325 Mg Tab PO 650 mg Q4H PRN Administration Pain MILD(1-3)/Fever >100.5/DEE Aspirin 81 mg 05/03/21 10:00 05/06/21 09:54 Aspirin 81 Mg Tab Chew PO 81 mg QDAY YENNI Administration Clonazepam 1 mg 05/02/21 20:07 05/03/21 21:40 Clonazepam 0.5 Mg Tab PO 05/06/21 20:06 1 mg Q8H PRN Administration Anxiety Clonidine HCl 0.1 mg 05/02/21 22:00 05/06/21 09:54 Clonidine 0.1 Mg Tab PO 0.1 mg BID YENNI Administration Dextrose 50 ml 05/02/21 20:10 Dextrose 50% In Water (25gm) 50 Ml Syringe IV Q30MIN PRN Hypoglycemia Protocol Enoxaparin Sodium 30 mg 05/05/21 22:00 05/05/21 21:19 Enoxaparin 30 Mg/0.3 Ml Inj SUB-Q 30 mg QDAY@2200 YENNI Administration Protocol Hydroxyzine Pamoate 25 mg 05/04/21 16:40 Hydroxyzine [place] 25 Mg Cap PO Q6H PRN Anxiety Insulin Human Isoph/Insulin Regular 10 unit 05/03/21 10:00 05/06/21 09:55 Insulin Nph/Regular 70/30 Inj SUB-Q 10 unit QAM YENNI Administration Insulin Human Lispro 0 unit 05/02/21 22:00 05/06/21 17:14 Insulin Lispro 100 Unit/Ml SUB-Q Not Given ACHS [facility] Protocol Lisinopril 40 mg 05/02/21 22:00 05/06/21 09:55 Lisinopril 40 Mg Tab PO 40 mg BID YENNI Administration Ondansetron HCl 4 mg 05/02/21 20:03 05/03/21 15:40 Ondansetron 4 Mg/2 Ml Inj IV 4 mg Q8H PRN Administration Nausea And Vomiting Oxycodone/Acetaminophen 1 tab 05/02/21 20:03 Oxycodone /Acetaminophen 5-325mg Tab PO Q6H PRN Pain, Moderate (4-6) Pravastatin Sodium 40 mg 05/02/21 22:00 05/05/21 21:18 Pravastatin 40 Mg Tab PO 40 mg QHS YENNI Administration Sertraline HCl 100 mg 05/05/21 10:00 05/06/21 09:54 Sertraline 100 Mg Tab PO 100 mg QDAY YENNI Administration Sodium Chloride 10 ml 05/02/21 22:00 05/06/21 09:55 Sodium Chloride 0.9% 10 Ml Flush Syringe IV 10 ml BID YENNI Administration Sodium Chloride 10 ml 05/02/21 20:03 Sodium Chloride 0.9% 10 Ml Flush Syringe IV PRN PRN LINE FLUSH Trazodone HCl 100 mg 05/04/21 22:00 05/05/21 21:19 Trazodone 100 Mg Tab PO 100 mg QHS YENNI Administration Zolpidem Tartrate 5 mg 05/02/21 20:03 Zolpidem 5 Mg Tab PO QHS PRN Insomnia
[2021-05-06] MEDS: PRAVASTATIN 40 MG TAB PO SCH (21:44)
[2021-05-06] MEDS: traZODone 100 MG TAB PO SCH (21:44)
[2021-05-06] MEDS: ENOXAPARIN 30 MG/0.3 ML INJ SUB-Q SCH (21:44)
[2021-05-06] MEDS: ACETAMINOPHEN 325 MG TAB PO PRN (21:45)
[2021-05-07 08:28] VITALS: BP 170/93
[2021-05-07] MEDS: INSULIN LISPRO 100 UNIT/ML SUB-Q SCH ×2 (08:47→12:13)
[2021-05-07] MEDS: cloNIDine 0.1 MG TAB PO SCH (09:25)
[2021-05-07] MEDS: LISINOPRIL 40 MG TAB PO SCH (09:25)
[2021-05-07] MEDS: SERTRALINE 100 MG TAB PO SCH (09:25)
[2021-05-07] MEDS: ASPIRIN 81 MG TAB CHEW PO SCH (09:25)
[2021-05-07] MEDS: INSULIN NPH/REGULAR 70/30 INJ SUB-Q SCH (09:26)
--- NOTE | 2021-05-07 12:58 | Discharge Summary ---
Providers - Providers Date of Admission: 05/03/21 14:22 Date of discharge: 05/07/21 Attending physician: EUGENIO RYAN 05/03/21 07:42 psychiatry consult [Consult to Mental Health] [CONS] Routine Reason For Exam: panic attack 05/05/21 18:10 Physical Therapy Evaluation and Treat [CONS] Routine Comment: Reason For Exam: Evaluate and treat/DC needs Primary care physician: SNACK BAR ATTENDANT Hospitalization Reason for admission: Uncontrolled hypertension, uncontrolled diabetes mellitus and panic attack Condition: Good Pertinent studies: CT head without contrast; no acute abnormality noted Hospital course: Uncontrolled hypertension, uncontrolled diabetes and panic attack Patient is a 55-year-old male with a history of noncompliance with diabetes and hypertension. Patient ran out of his medications approximately 1 month ago has been taking some insulin. Presented to the ED with a chief complaint of nervousness anxiety. Patient stated he awakened and at breakfast became nervous scared anxious and unable to cope with surroundings. This was the cause of patient's initial presentation to the ED. Upon arrival in the ED patient was found to have hypertensive emergency with blood pressure 231/118 as well as uncontrolled diabetes. Patient also has history of some visual impairement for the last 2 years, probably diabetic retinopathy, patient also complained of vision loss therefore received initial neurology evaluation. Patient vision has not changed in 2 years. Patient was admitted blood pressures blood sugars closely monitored medications optimized, patient was evaluated by psych for his anxiety managed with antianxiety medications, patient also had acute kidney injury due to vasomotor nephropathy, nephrology evaluated medications optimized Probably secondary to diabetic nephropathy due to noncompliance. Patient symptoms slowly but gradually improved Today patient is comfortable no new complaints vital signs stable physical examination prior to discharge did not reveal any new changes. Cleared by all the consultants for discharge and follow-up in the office for further evaluation and management. Patient received diabetic education and nutrition education prior to discharge. 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 Patient needs to see lettuce cutter periodically for close monitoring of his vision/retinopathy Continue statin , check lipid panel, target LDL less than 70 --Acute kidney injury; vasomotor nephropathy Gentle hydration monitor renal function avoid nephrotoxins Nephrology consult if no improvement, encourage plenty of oral fluids --HyponatremiStatus: Acute Resolved, --hypokalemia Replenished with KCl, resolved -- Depression/anxiety Psych evaluated in consultation and is following , continue current medications we will resume Zoloft. Patient remains somewhat depressed. Follow private psychiatrist upon discharge --DVT prophylaxis; Subcu Lovenox, renal dose -- Panic attacks Klonopin as needed restart Zoloft. Cleared by all the consultants for discharge and follow-up in the office for further evaluation Stable at discharge Disposition: HOME HEALTH CARE SERVICE Final Discharge Diagnosis (Prints w/discharge instructions): Hypertensive emergency[improved. Hypertension. Type 2 diabetes mellitus. Acute kidney injury. Hyponatremia/resolved. Hypokalemia/resolved. Depression. Generalized anxiety. Panic attacks Time spent for discharge: 35 min Core Measure Documentation - Palliative Care Palliative Care/ Comfort Measures: Not Applicable - Core Measures Any of the following diagnoses?: none Exam - Constitutional Vitals: Temp Pulse Resp BP Pulse Ox 97.4 F L 62 19 170/93 98 05/07/21 08:07 05/07/21 08:07 05/07/21 08:07 05/07/21 08:07 05/07/21 08:07 General appearance: Present: no acute distress, well-nourished - EENT Eyes: Present: PERRL, EOM intact - Neck Neck: Present: supple, normal ROM - Respiratory Respiratory effort: normal Respiratory: bilateral: diminished, negative: rales, rhonchi, wheezing - Cardiovascular Rhythm: regular Heart Sounds: Present: S1 & S2 - Extremities Extremities: no ischemia, No edema - Abdominal General gastrointestinal: Present: soft, non-tender, non-distended, normal bowel sounds - Integumentary Integumentary: Present: clear, warm - Musculoskeletal Musculoskeletal: strength equal bilaterally, generalized weakness - Psychiatric Psychiatric: appropriate mood/affect, cooperative - Neurologic Neurologic: moves all extremities Plan Activity: advance as tolerated, fall precautions Diet: diabetic Additional Instructions: Advised to follow private lettuce cutter per schedule. Follow-up private electronic assembler in 1 week. Advised to see private psychiatrist within 1 week. Fall precautions. If you have worsening symptoms contact MD or go to emergency room as needed Follow up with: SOPHIA LUONG MD [Staff Physician] - 7 Days PRIMARY CARE, [Primary Care Provider] - 3-5 Days YOLANDA SEVILLA MD [Staff Physician] - 7 Days
== END 2021-05-07 17:04 | disposition home health service (06) | DRG 124 ==
LOC: ED 15:38 → 4A 18:21 → OBSVTOIN 05-03 14:22
PROVIDERS: ADMIT Internal Medicine; ATTEND Internal Medicine
DX: E11.319 Type 2 diabetes mellitus with unspecified diabetic retinopathy without macular edema (principal); N17.0 Acute kidney failure with tubular necrosis; E87.1 Hypo-osmolality and hyponatremia; F33.1 Major depressive disorder, recurrent, moderate; E11.65 Type 2 diabetes mellitus with hyperglycemia; I16.0 Hypertensive urgency; Z91.14 Patient's other noncompliance with medication regimen; Z88.0 Allergy status to penicillin; I50.9 Heart failure, unspecified; I11.0 Hypertensive heart disease with heart failure; Z79.4 Long term (current) use of insulin; Z79.899 Other long term (current) drug therapy; F41.0 Panic disorder [episodic paroxysmal anxiety]; E87.6 Hypokalemia; G47.00 Insomnia, unspecified; F41.1 Generalized anxiety disorder
CPT/HCPCS: 36415; 70450; 80048; 80053; 80061; 82565; 82805; 82962; 83036; 83735; 84100; 84132; 85025; 93005; 96374; 96375; G0378; J0360; J1650; J1815; J2405

== ENCOUNTER 2021-05-17 21:12 | Inpatient (IN) | payer MEDICAID, OTHER ==
[2021-05-18] MEDS ORDERED: hydrALAZINE 20 MG/1 ML INJ IV ONE (00:10)
--- NOTE | 2021-05-18 00:15 | Emergency Department Report ---
ED General Adult HPI - General Chief complaint: High BP Stated complaint: HIGH B/P Time Seen by Provider: 05/17/21 23:52 Source: patient Mode of arrival: Ambulatory Limitations: Other - History of Present Illness Initial comments: 55-year-old male patient with history of poorly controlled diabetes and hypertension presents to the emergency department with complaints of blurred vision worsening today. Patient states he has been struggling with his vision for approximately 2 years. He was recently hospitalized for hypertensive emergency. He was discharged home on clonidine, hydralazine, and hydrochlorothiazide. He has been taking these medications but his blood pressure readings at home have still been too high to measure. Today, his blurred vision worsened, prompting his to bring him to the emergency department. No recent fall, trauma, or injury. Denies headache, seizure, syncope, chest pain, shortness of breath, nausea, vomiting, paresthesias, numbness, weakness. Denies all other complaints at this time. - Related Data Previous Rx's Medication Instructions Recorded Last Taken Type Aspirin [Aspirin BABY CHEW TAB] 81 mg PO QDAY #30 tab.chew 03/20/14 09/17/15 Rx Insulin NPH/Regular [NovoLIN 70/30] 10 units SQ QAM #30 dose 03/20/14 09/17/15 Rx Sertraline [Zoloft] 75 mg PO QAM #30 tablet 03/20/14 09/17/15 Rx Simvastatin (Nf) [Zocor TAB] 20 mg PO QHS #30 tablet 03/20/14 09/17/15 Rx Ondansetron [Zofran ODT TAB] 4 mg PO Q8HR PRN #20 tab.rapdis 02/23/21 Unknown Rx traZODone [Desyrel] 50 mg PO QHS #30 tablet 02/23/21 Unknown Rx cloNIDine [Catapres] 0.1 mg PO BID #60 tablet 05/07/21 Unknown Rx hydrALAZINE [Apresoline TAB] 25 mg PO Q8HR #90 tab 05/07/21 Unknown Rx hydroCHLOROthiazide [HCTZ] 12.5 mg PO QDAY #30 capsule 05/07/21 Unknown Rx Allergies Allergy/AdvReac Type Severity Reaction Status Date / Time Penicillins Allergy Hives Verified 09/20/17 16:18 ED Review of Systems ROS: Stated complaint: HIGH B/P Other details as noted in HPI Other: GENERAL: Negative for fever, chills, weight change, anorexia, fatigue. EYES: Positive for blurred vision. ENT: Negative for ear pain, difficulty hearing, sore throat, nasal congestion, epistaxis. CARDIOVASCULAR: Negative for chest pain, palpitations, lower extremity swelling. PULMONARY: Negative for cough, dyspnea, wheezing, orthopnea, cyanosis. GASTROINTESTINAL: Negative for abdominal pain, nausea, vomiting, diarrhea, constipation. MUSCULOSKELETAL: Negative for joint pain, joint swelling, myalgias, back pain, neck pain. NEUROLOGICAL: Negative for headache, seizure, syncope, paresthesias, weakness. INTEGUMENTARY: Negative for erythema, rash, diaphoresis, laceration, ecchymosis. HEMATOLOGICAL: Negative for hemoptysis, hematemesis, hematochezia, hematuria. PSYCHIATRIC: Negative for hallucinations, suicidal ideation, homicidal ideation, anxiety, depression. ED Past Medical Hx - Past Medical History Previous Medical History?: Yes Hx Hypertension: Yes Hx CVA: No Hx Heart Attack/AMI: No Hx Congestive Heart Failure: Yes Hx Diabetes: Yes Hx Psychiatric Treatment: Yes (anxiety) - Surgical History Past Surgical History?: No - Social History Smoking Status: Never Smoker - Medications Home Medications: Home Medications Medication Instructions Recorded Confirmed Last Taken Type Aspirin [Aspirin BABY CHEW TAB] 81 mg PO QDAY #30 tab.chew 03/20/14 09/18/15 09/17/15 Rx Insulin NPH/Regular [NovoLIN 70/30] 10 units SQ QAM #30 dose 03/20/14 09/18/15 09/17/15 Rx Sertraline [Zoloft] 75 mg PO QAM #30 tablet 03/20/14 09/18/15 09/17/15 Rx Simvastatin (Nf) [Zocor TAB] 20 mg PO QHS #30 tablet 03/20/14 09/18/15 09/17/15 Rx Ondansetron [Zofran ODT TAB] 4 mg PO Q8HR PRN #20 tab.rapdis 02/23/21 Unknown Rx traZODone [Desyrel] 50 mg PO QHS #30 tablet 02/23/21 Unknown Rx cloNIDine [Catapres] 0.1 mg PO BID #60 tablet 05/07/21 Unknown Rx hydrALAZINE [Apresoline TAB] 25 mg PO Q8HR #90 tab 05/07/21 Unknown Rx hydroCHLOROthiazide [HCTZ] 12.5 mg PO QDAY #30 capsule 05/07/21 Unknown Rx ED Physical Exam - General Limitations: Other - Other Other exam information: General: Awake and alert. No acute distress. Head: Atraumatic, normocephalic. Eyes: EOMI. Pupils are equal and round, reactive to light, no nystagmus. Normal sclera and conjunctiva. Reports blurred vision bilaterally; see RN note for visual acuities. ENT: Oral mucosa is moist. Normal pharyngeal exam. Neck: Supple. No lymphadenopathy. Pulmonary: No respiratory distress. Clear to auscultation bilaterally. Cardiac: Regular rate and rhythm. Pulses are palpable and equal bilaterally. No lower extremity cyanosis or edema. Skin: Warm and dry. No rashes. Abdomen: Soft, non-tender, non-protuberant. No guarding, rigidity, or rebound. Bowel sounds are normal. No organomegaly or masses noted. Back: Normal alignment. No CVA tenderness. Extremities: Symmetrical. Full range of motion intact. Neurological: Alert and oriented, appropriately interactive, no focal deficits. Psych: Cooperative. Appropriate mood and affect. Speech is evenly metered. Thoughts are logically construed. ED Course Vital Signs 05/17/21 05/18/21 22:21 00:44 Temperature 97.9 F Pulse Rate 70 68 Respiratory 18 Rate Blood Pressure 174/93 236/121 O2 Sat by Pulse 98 Oximetry ED Medical Decision Making - Lab Data Result diagrams: 05/18/21 00:28 05/18/21 00:28 - EKG Data 05/18/21 01:36 EKG shows normal sinus rhythm with a ventricular rate of 88 bpm. Single atrial premature complex present. Left axis deviation. Left ventricular hypertrophy. Normal [place] interval. Normal QT interval. Minimal T wave inversion noted to the lateral leads, consistent with prior tracing in April 2021. Over read by attending emergency physician, who agrees with this interpretation. 05/18/21 01:37 - Medical Decision Making Differential diagnosis including but not limited to: hypertensive emergency, intracranial hemorrhage, ischemic stroke, encephalitis Patient with history of poorly controlled hypertension presents to the emergency department with worsening blurred vision today. Blood pressure readings at home have reportedly been too high to read on the machine despite compliance with multiple antihypertensive medications. Patient was recently admitted to this facility for evaluation and management of hypertensive emergency. He states his vision is worse now than it was at the time of his hospitalization. Blood pressure remains elevated in the emergency department. He was administered a dose of IV Hydralazine without improvement. Nicardipine drip started at 5 mg/hr, titrated to systolic of 190 mmHg (20% reduction of systolic BP over one hour), pending results of diagnostic work-up. Patient takes both Hydralazine and calcium channel sarika at home. Repeat neurological exam is unchanged. CT head without acute process. EKG without acute injury pattern. Labs show evidence of stage III kidney disease, consistent with patient's baseline. Patient is not an appropriate candidate for TPA due to delayed presentation > 4.5 hours since his vision began to deteriorate. Patient will be admitted to the hospital for further evaluation and management of blood pressure. Case discussed with hospitalist who agrees to admit to the ICU. Patient and expressed understanding and are agreeable to plan of care. Case discussed with Dr. Patricio, attending emergency physician, who personally evaluated the patient and agrees with diagnostic work-up/plan of care. Critical Care Time: Yes Critical care time in (mins) excluding proc time.: 74 Critical care attestation.: If time is entered above; I have spent that time in minutes in the direct care of this critically ill patient, excluding procedure time. Critical Care Time: 74 minutes ED Disposition Clinical Impression: Hypertensive emergency, Visual disturbance Disposition: DC-09 OP ADMIT IP TO THIS HOSP Is pt being admited?: Yes Does the pt Need Aspirin: No Condition: Critical Instructions: Hypertension (ED) Time of Disposition: 02:16
--- NOTE | 2021-05-18 00:55 | XRay Report ---
XR chest 1V ap INDICATION / CLINICAL INFORMATION: hypertensive emergency. COMPARISON: 02/22/2021 FINDINGS: SUPPORT DEVICES: None. HEART /PULMONARY VASCULATURE: Cardiac silhouette is enlarged without significant pulmonary vasculatur e congestion. LUNGS / PLEURA: No significant pulmonary or pleural abnormality. No pneumothorax. ADDITIONAL FINDINGS: No significant additional findings. IMPRESSION: 1. No acute findings. Signer Name: Pete Shore MD Signed: 05/18/2021 12:51 AM Workstation Name: [id number]
[2021-05-18 01:02] LABS: Basophils # (Auto) 0.2 K/mm3 (0.0-0.1); Basophils % (Auto) 2.3 % (0.0-1.8); Eosinophils # (Auto) 0.1 K/mm3 (0.0-0.4); Eosinophils % (Auto) 0.9 % (0.0-4.3); Hematocrit 39.8 % (35.5-45.6); Hemoglobin 13.4 gm/dl (11.8-15.2); Lymphocytes # (Auto) 1.6 K/mm3 (1.2-5.4); Lymphocytes % (Auto) 23.1 % (13.4-35.0); Mean Corpuscular HGB Conc 34 % (32-34); Mean Corpuscular Volume 88 fl (84-94); Monocytes # (Auto) 0.6 K/mm3 (0.0-0.8); Monocytes % (Auto) 9.2 % (0.0-7.3); Platelet Count 230 K/mm3 (140-440); Red Blood Count 4.52 M/mm3 (3.65-5.03); Red Cell Distribution Width 13.7 % (13.2-15.2)
[2021-05-18 01:07] LABS: Alanine Aminotransferase 7 units/L (7-56); Albumin 3.7 g/dL (3.9-5); BUN/Creatinine Ratio 16; Blood Urea Nitrogen 28 mg/dL (9-20); Calcium 8.8 mg/dL (8.4-10.2); Hemolysis Index 4
[2021-05-18 01:12] LABS: INR 0.82 (0.87-1.13)
[2021-05-18 01:13] LABS: Partial Thromboplastin Time 27.2 Sec. (24.2-36.6)
--- NOTE | 2021-05-18 01:16 | Cat Scan Report ---
CT HEAD WITHOUT CONTRAST INDICATION / CLINICAL INFORMATION: Hypertensive Emergency. TECHNIQUE: All CT scans at this location are performed using CT dose reduction for ALARA by means of automated exposure control. COMPARISON: 05/02/2021. FINDINGS: BRAIN PARENCHYMA: No acute intracranial hemorrhage. No evidence of recent infarct. No mass effect or midline shift. White matter chronic small vessel ischemic changes. VENTRICULAR SYSTEM/EXTRA-AXIAL SPACES: Ventricles are normal for age. No extra-axial fluid collection . ORBITS: Normal as visualized. SKELETAL SYSTEM/SOFT TISSUES: Normal bones and soft tissues. PARANASAL SINUSES/MASTOID AIR CELLS: No significant abnormality. ADDITIONAL FINDINGS: None. IMPRESSION: 1. No acute intracranial abnormality. Signer Name: Pete Shore MD Signed: 05/18/2021 1:11 AM Workstation Name: [id number]
[2021-05-18] MEDS: niCARdipine DRIP 40 MG/200 ML BAG IV ONE ×2 (02:43→02:47)
[2021-05-18] MEDS ORDERED: ACETAMINOPHEN 325 MG TAB PO PRN (02:53)
[2021-05-18] MEDS ORDERED: ONDANSETRON 4 MG/2 ML INJ IV PRN (02:53)
[2021-05-18] MEDS ORDERED: DEXTROSE 50% IN WATER (25GM) 50 ML SYRINGE IV PRN (02:53)
[2021-05-18] MEDS ORDERED: hydrALAZINE 20 MG/1 ML INJ IV PRN (02:57)
--- NOTE | 2021-05-18 03:15 | History and Physical Report ---
History of Present Illness Date of examination: 05/18/21 Date of admission: G0 05/18/2021 Chief complaint: High blood pressure History of present illness: 55-year-old male with history of diabetes and hypertension was brought to the hospital because of blurred vision worsening today. Patient states he has been struggling with his vision for approximately 2 years. He was recently hospitalized for hypertensive emergency. He was discharged home on clonidine, hydralazine, and hydrochlorothiazide. He has been taking these medications but his blood pressure readings at home have still been too high to measure. Today, his blurred vision worsened, prompting his to bring him to the emergency department. No recent fall, trauma, or injury. Denies headache, seizure, syncope, chest pain, shortness of breath, In the emergency room patient is found to have blood pressure of 236/121 Past History Past Medical History: diabetes, heart failure, hypertension, other (Anxiety) Medications and Allergies Allergies Allergy/AdvReac Type Severity Reaction Status Date / Time Penicillins Allergy Hives Verified 09/20/17 16:18 Home Medications Medication Instructions Recorded Confirmed Last Taken Type Aspirin [Aspirin BABY CHEW TAB] 81 mg PO QDAY #30 tab.chew 03/20/14 09/18/15 09/17/15 Rx Insulin NPH/Regular [NovoLIN 70/30] 10 units SQ QAM #30 dose 03/20/14 09/18/15 09/17/15 Rx Sertraline [Zoloft] 75 mg PO QAM #30 tablet 03/20/14 09/18/15 09/17/15 Rx Simvastatin (Nf) [Zocor TAB] 20 mg PO QHS #30 tablet 03/20/14 09/18/15 09/17/15 Rx Ondansetron [Zofran ODT TAB] 4 mg PO Q8HR PRN #20 tab.rapdis 02/23/21 Unknown Rx traZODone [Desyrel] 50 mg PO QHS #30 tablet 02/23/21 Unknown Rx cloNIDine [Catapres] 0.1 mg PO BID #60 tablet 05/07/21 Unknown Rx hydrALAZINE [Apresoline TAB] 25 mg PO Q8HR #90 tab 05/07/21 Unknown Rx hydroCHLOROthiazide [HCTZ] 12.5 mg PO QDAY #30 capsule 05/07/21 Unknown Rx Active Meds: Active Medications Acetaminophen (Acetaminophen 325 Mg Tab) 650 mg PO Q4H PRN PRN Reason: Pain MILD(1-3)/Fever >100.5/DEE Aspirin (Aspirin 81 Mg Tab Chew) 81 mg PO QDAY [facility] Clonidine HCl (Clonidine 0.1 Mg Tab) 0.1 mg PO BID [facility] Dextrose (Dextrose 50% In Water (25gm) 50 Ml Syringe) 0 ml IV Q30MIN PRN; Protocol PRN Reason: Hypoglycemia Famotidine (Famotidine 20 Mg Tab) 20 mg PO QAM [facility] Hydralazine HCl (Hydralazine 25 Mg Tab) 25 mg PO Q8HR YENNI Hydralazine HCl (Hydralazine 20 Mg/1 Ml Inj) 10 mg IV Q6H PRN PRN Reason: Blood Pressure Hydrochlorothiazide (Hydrochlorothiazide 12.5 Mg Cap) 12.5 mg PO QDAY [facility] Nicardipine/Sodium Chloride (Cardene Drip 40 Mg/200 Ml) 40 mg in 200 mls @ 25 mls/hr IV ONCE ONE; Protocol Stop: 05/18/21 09:17 Last Admin: 05/18/21 02:47 Dose: Not Given Documented by: Insulin Human Lispro (Insulin Lispro 100 Unit/Ml) 0 unit SUB-Q ACHS [facility]; Protocol Miscellaneous Medication (Simvastatin (Nf)) 20 mg PO QHS [facility] Ondansetron HCl (Ondansetron 4 Mg/2 Ml Inj) 4 mg IV Q8H PRN PRN Reason: Nausea And Vomiting Sertraline HCl (Sertraline 50 Mg Tab) 75 mg PO QAM [facility] Sodium Chloride (Sodium Chloride 0.9% 10 Ml Flush Syringe) 10 ml IV PRN PRN PRN Reason: LINE FLUSH Sodium Chloride (Sodium Chloride 0.9% 10 Ml Flush Syringe) 10 ml IV PRN PRN PRN Reason: LINE FLUSH Trazodone HCl (Trazodone 50 Mg Tab) 50 mg PO QHS [facility] Exam - Constitutional Vitals: Temp Pulse Resp BP Pulse Ox 97.9 F 68 18 236/121 98 05/17/21 22:21 05/18/21 00:44 05/17/21 22:21 05/18/21 00:44 05/17/21 22:21 General appearance: Present: no acute distress, well-nourished, other (Blurred vision) - EENT Eyes: Present: PERRL ENT: hearing intact, clear oral mucosa - Neck Neck: Present: supple, normal ROM - Respiratory Respiratory effort: normal Respiratory: bilateral: CTA - Cardiovascular Heart Sounds: Present: S1 & S2. Absent: rub, click - Extremities Extremities: pulses symmetrical, No edema Peripheral Pulses: within normal limits - Abdominal General gastrointestinal: Present: soft, non-tender, non-distended, normal bowel sounds Male genitourinary: Present: normal - Integumentary Integumentary: Present: clear, warm, dry - Musculoskeletal Musculoskeletal: gait normal, strength equal bilaterally - Psychiatric Psychiatric: appropriate mood/affect, intact judgment & insight - Neurologic Neurologic: CNII-XII intact, moves all extremities HEART Score - HEART Score Troponin: Troponin T < 0.010 ng/mL (0.00-0.029) 05/18/21 00:28 Results - Labs CBC & Chem 7: 05/18/21 00:28 05/18/21 00:28 Labs: Laboratory Last Values WBC 7.0 K/mm3 (4.5-11.0) 05/18/21 00:28 RBC 4.52 M/mm3 (3.65-5.03) 05/18/21 00:28 Hgb 13.4 gm/dl (11.8-15.2) 05/18/21 00:28 Hct 39.8 % (35.5-45.6) 05/18/21 00:28 MCV 88 fl (84-94) 05/18/21 00: MCH 30 pg (28-32) 05/18/21 00: MCHC 34 % (32-34) 05/18/21 00: RDW 13.7 % (13.2-15.2) 05/18/21 00:28 Plt Count 230 K/mm3 (140-440) 05/18/21 00:28 Lymph % (Auto) 23.1 % (13.4-35.0) 05/18/21 00:28 [place] % (Auto) 9.2 % (0.0-7.3) H 05/18/21 00:28 Eos % (Auto) 0.9 % (0.0-4.3) 05/18/21 00: Baso % (Auto) 2.3 % (0.0-1.8) H 05/18/21 00:28 Lymph # (Auto) 1.6 K/mm3 (1.2-5.4) 05/18/21 00:28 [place] # (Auto) 0.6 K/mm3 (0.0-0.8) 05/18/21 00:28 Eos # (Auto) 0.1 K/mm3 (0.0-0.4) 05/18/21 00:28 Baso # (Auto) 0.2 K/mm3 (0.0-0.1) H 05/18/21 00:28 Seg Neutrophils % 64.5 % (40.0-70.0) 05/18/21 00: Seg Neutrophils # 4.5 K/mm3 (1.8-7.7) 05/18/21: PT 11.8 Sec. (12.2-14.9) L 05/18/21: INR 0.82 (0.87-1.13) L 05/18/21: APTT 27.2 Sec. (24.2-36.6) 05/18/21 00: Sodium 141 mmol/L (137-145) 05/18/21 00:28 Potassium 4.0 mmol/L (3.6-5.0) 05/18/21 00: Chloride 101.0 mmol/L (98-107) 05/18/21 00: Carbon Dioxide 30 mmol/L (22-30) 05/18/21 00: Anion Gap 14 mmol/L 05/18/21 00: BUN 28 mg/dL (9-20) H 05/18/21 00: Creatinine 1.8 mg/dL (0.8-1.3) H 05/18/21 00:28 Estimated GFR 47 ml/min 05/18/21 00: BUN/Creatinine Ratio 16 % 05/18/21: Glucose 139 mg/dL (75-100) H 05/18/21 00:28 Calcium 8.8 mg/dL (8.4-10.2) 05/18/21: Magnesium 2.40 mg/dL (1.7-2.3) H 05/18/21 00:28 Total Bilirubin 0.20 mg/dL (0.1-1.2) 05/18/21 00:28 AST 11 units/L (5-40) 05/18/21 00:28 ALT 7 units/L (7-56) 05/18/21 00:28 Alkaline Phosphatase 86 units/L (35-129) 05/18/21 00:28 Troponin T < 0.010 ng/mL (0.00-0.029) 05/18/21 00:28 Total Protein 6.6 g/dL (6.3-8.2) 05/18/21 00:28 Albumin 3.7 g/dL (3.9-5) L 05/18/21 00:28 Albumin/Globulin Ratio 1.3 % 05/18/21 00:28 - Imaging and Cardiology Chest x-ray: report reviewed CT Scan - head: report reviewed Assessment and Plan VTE prophylaxis?: Mechanical Plan of care discussed with patient/family: Yes - Patient Problems (1) Hypertensive emergency Status: Acute Plan to address problem: Admit the patient to the medical IMCU. Cardiac diet. Hydralazine 10 mill IV every 6 hours as needed, hydralazine 25 mg p.o. every 8 hours, hydrochlorothiazide 12.5 mg p.o. daily. Will start on nicardipine drip if needed. We will monitor the blood pressure closely recheck CBC BMP in the morning (2) Diabetes 1.5, managed as type 2 Status: Acute Plan to address problem: We will put the patient on 1800 kcal ADA diet. Humalog sliding scale moderate dose with Accu-Chek coverage before meals and at bedtime we also consult diabetic education recheck BMP in the morning (3) Depression Status: Acute Plan to address problem: We will put the patient on sertraline 50 mg p.o. every morning outpatient follow-up with psychiatry (4) DVT prophylaxis Status: Acute Plan to address problem: SCD for DVT prophylaxis. Pepcid 20 mg p.o. every morning for GI prophylaxis. Patient is a full code
[2021-05-18] MEDS: INSULIN LISPRO 100 UNIT/ML SUB-Q SCH ×4 (07:38→21:28)
[2021-05-18] MEDS: hydrALAZINE 25 MG TAB PO SCH ×3 (07:50→21:31)
[2021-05-18] MEDS ORDERED: SERTRALINE 25 MG TAB PO SCH (10:00)
[2021-05-18] MEDS ORDERED: hydroCHLOROthiazide 12.5 MG CAP PO SCH (10:00)
[2021-05-18] MEDS: FAMOTIDINE 20 MG TAB PO SCH (10:50)
[2021-05-18] MEDS: ASPIRIN 81 MG TAB CHEW PO SCH (10:50)
[2021-05-18] MEDS: cloNIDine 0.1 MG TAB PO SCH ×2 (10:50→21:27)
[2021-05-18] MEDS: SERTRALINE 50 MG TAB PO SCH (10:50)
--- NOTE | 2021-05-18 10:57 | Electrocardiograph Report ---
[facility] Test Date: 2021-05-18 Test Time: 01:23:40 Pat Name: PAUL MONCADA Department: CCU Room: A262 1 Gender: M [employer] Counselor: YASH : 1965 Requested By: MADELYN CRUMP Order Number: [id number] Reading MD: Jarrett Snyder Measurements Intervals [place] Rate: 88 P: 49 AK: 172 QRS: -22 QRSD: 85 T: 67 QT: 385 QTc: 466 Interpretive Statements Sinus rhythm Atrial premature complex Nonspecific T abnormalities, lateral leads Compared to ECG 05/02/2021 17:50:08 Atrial premature complex(es) now present Ventricular premature complex(es) no longer present Left-axis deviation no longer present Electronically Signed On 05-18-2021 10:56:42 EDT by Jarrett Snyder
[2021-05-18 11:04] LABS: Calcium 8.8 mg/dL (8.4-10.2)
[2021-05-18] MEDS ORDERED: POTASSIUM CHLORIDE ER 20 MEQ TAB PO ONE (13:00)
[2021-05-18] MEDS: amLODIPine 10 MG TAB PO SCH (13:19)
--- NOTE | 2021-05-18 16:38 | Event Note ---
Date: 05/18/21 Patient seen and examined, blood pressure medications have been restarted, family at the bedside, discussed issues with noncompliance with medications. Made changes to medications as appropriate, increase hydralazine, changed hydrochlorothiazide to amlodipine due to hypokalemia. Supplement with potassium one-time dose. Patient will be transferred to the floor, anticipate discharge within the next 24 hours.
[2021-05-18] MEDS ORDERED: PRAVASTATIN 40 MG TAB PO SCH (22:00)
[2021-05-18] MEDS ORDERED: traZODone 50 MG TAB PO SCH (22:00)
[2021-05-19] MEDS: hydrALAZINE 25 MG TAB PO SCH ×2 (05:36→13:43)
[2021-05-19 05:47] LABS: Basophils % (Auto) 0.4 % (0.0-1.8); Eosinophils % (Auto) 0.6 % (0.0-4.3); Hematocrit 36.2 % (35.5-45.6); Hemoglobin 12.1 gm/dl (11.8-15.2); Lymphocytes # (Auto) 1.5 K/mm3 (1.2-5.4); Lymphocytes % (Auto) 24.5 % (13.4-35.0); Mean Corpuscular HGB Conc 33 % (32-34); Mean Corpuscular Volume 88 fl (84-94); Monocytes # (Auto) 0.3 K/mm3 (0.0-0.8); Monocytes % (Auto) 5.2 % (0.0-7.3); Platelet Count 210 K/mm3 (140-440); Red Blood Count 4.09 M/mm3 (3.65-5.03); Red Cell Distribution Width 14.2 % (13.2-15.2)
[2021-05-19 06:00] LABS: Calcium 7.8 mg/dL (8.4-10.2)
[2021-05-19] MEDS ORDERED: INSULIN NPH/REGULAR 70/30 INJ SUB-Q SCH (08:00)
[2021-05-19] MEDS: INSULIN LISPRO 100 UNIT/ML SUB-Q SCH ×2 (08:00→13:33)
[2021-05-19] MEDS ORDERED: CALCIUM GLUCONATE 1,000 MG in SODIUM CHLORIDE 0.9% 100 ML IV NR (09:30)
[2021-05-19] MEDS: ASPIRIN 81 MG TAB CHEW PO SCH (13:36)
[2021-05-19] MEDS: FAMOTIDINE 20 MG TAB PO SCH (13:45)
[2021-05-19] MEDS: amLODIPine 10 MG TAB PO SCH (13:45)
[2021-05-19] MEDS: SERTRALINE 50 MG TAB PO SCH (13:46)
[2021-05-19] MEDS: cloNIDine 0.1 MG TAB PO SCH (13:46)
--- NOTE | 2021-05-19 14:19 | Discharge Summary ---
Providers - Providers Date of Admission: 05/18/21 02:14 Date of discharge: 05/19/21 Attending physician: MARVEL LEMUS MD 05/18/21 02:54 Consult to Dietitian/Nutrition [CONS] Routine Physician Instructions: Reason For Exam: Reason for Consult: Diet education Primary care physician: SPORTS WRITER Hospitalization Condition: Good Hospital course: 55-year-old male who presents with hypertensive urgency secondary to noncompliance with medications (1) Hypertensive emergency Status: Acute Plan to address problem: Patient admitted to the [facility] Patient's medications restarted and adjusted Blood pressure better controlled (2) Diabetes 1.5, managed as type 2 Status: Acute Plan to address problem: Insulin sliding scale (3) Depression Status: Acute Plan to address problem: We will put the patient on sertraline 50 mg p.o. every morning outpatient follow-up with psychiatry (4) hypocalcemia Status: Acute Plan to address problem: Give IV calcium 05/19/2021 blood pressure is better controlled, spoke with the , indicated that patient needs to be follow-up with a primary care, diabetic specialist, and kidney doctor. She verbalized understanding of plan and states that he has an appointment for follow-up. Disposition: DC-01 TO HOME OR SELFCARE Final Discharge Diagnosis (Prints w/discharge instructions): Hypertensive urgency. Hypocalcemia. Depression. Diabetes mellitus type 2 insulin-dependent Time spent for discharge: 35 minutes Core Measure Documentation - Palliative Care Palliative Care/ Comfort Measures: Not Applicable - Core Measures Any of the following diagnoses?: none Exam - Physical Exam Narrative exam: General appearance: no acute distress, well-nourished EENT: PERRL, EOM intact, hearing intact, clear oral mucosa Neck: Present: supple, normal ROM Respiratory: bilateral CTA, negative: rales, rhonchi, wheezing Cardiovascular: Regular rate/rhythm, Normal S1 & S2. No gallop, rub Extremities: no ischemia, No edema, normal temperature, normal color, Full ROM Abdominal: soft, no tenderness, non-distended, normal bowel sounds Integumentary: Present: clear, warm, dry no wounds, no erythema noted Psychiatric: appropriate mood/affect, intact judgment & insight Neurologic: CNII-XII intact, moves all extremities, no sensory or motor abnormalities - Constitutional Vitals: Temp Pulse Resp BP Pulse Ox 98.6 F 77 16 162/88 97 07/14/21 08:11 05/19/21 13:43 05/19/21 08:11 05/19/21 13:46 05/19/21 08:27 Plan Activity: no restrictions Diet: low salt Follow up with: PRIMARY CARE, [Primary Care Provider] - 14 Days (Please follow-up with your primary care physician. Please take your blood pressure medications as prescribed. Please also note that you should get a referral to see a passenger car inspector pertaining to your kidney function.) Prescriptions: amLODIPine 10 mg PO QDAY #90 tablet hydrALAZINE [Apresoline TAB] 50 mg PO Q8HR #180 tablet cloNIDine [Catapres] 0.1 mg PO BID #60 tablet
[2021-05-19 15:57] VITALS: BP 124/77
== END 2021-05-19 18:16 | disposition home or self-care (01) | DRG 125 ==
LOC: ED 21:12 → CC1 05-18 02:14 → 4A 05-18 18:37
PROVIDERS: ADMIT Hospitalist; ATTEND Family Medicine
DX: H53.9 Unspecified visual disturbance (principal); I16.1 Hypertensive emergency; E11.9 Type 2 diabetes mellitus without complications; F41.9 Anxiety disorder, unspecified; I50.9 Heart failure, unspecified; I11.0 Hypertensive heart disease with heart failure; E87.6 Hypokalemia; E83.51 Hypocalcemia; Z79.899 Other long term (current) drug therapy; Z79.82 Long term (current) use of aspirin; Z79.891 Long term (current) use of opiate analgesic; Z79.01 Long term (current) use of anticoagulants; Z88.0 Allergy status to penicillin; Z79.4 Long term (current) use of insulin
CPT/HCPCS: 36415; 70450; 71045; 80048; 80053; 82962; 83735; 84484; 85025; 85610; 85730; 93005; G0378; A9270-GY; J0360; J1815

== ENCOUNTER 2022-02-23 20:40 | Emergency (ER) | payer SELFPAY ==
--- NOTE | 2022-02-23 22:24 | XRay Report ---
CHEST 1 VIEW 02/23/2022 9:58 PM INDICATION / CLINICAL INFORMATION: Chest pain. Shortness of breath. COMPARISON: One view of the chest from 05/18/2021. FINDINGS: SUPPORT DEVICES: None. HEART / MEDIASTINUM: No significant abnormality. LUNGS / PLEURA: Generalized bilateral interstitial opacities are noted, left greater than right, with bibasilar predominance. No significant pleural effusion. No pneumothorax. ADDITIONAL FINDINGS: No significant additional findings. IMPRESSION: 1. Bilateral pulmonary opacities, likely representing atelectasis/edema. Signer Name: Javier Delgado MD Signed: 02/23/2022 10:20 PM Workstation Name: [id number]
[2022-02-23 22:54] LABS: Hematocrit 38.4 % (35.5-45.6); Hemoglobin 12.4 gm/dl (11.8-15.2); Mean Corpuscular HGB Conc 32 % (32-34); Mean Corpuscular Volume 89 fl (84-94); Platelet Count 304 K/mm3 (140-440); Red Cell Distribution Width 13.8 % (13.2-15.2)
[2022-02-23 22:56] LABS: Lymphocytes % (Auto) 3.6 % (13.4-35.0); Monocytes % (Auto) 12.3 % (0.0-7.3)
[2022-02-23 22:57] LABS: Eosinophils % (Auto) 0.6 % (0.0-4.3); Lymphocytes # (Auto) 0.3 K/mm3 (1.2-5.4); Monocytes # (Auto) 0.9 K/mm3 (0.0-0.8)
[2022-02-23 23:13] LABS: Albumin 3.6 g/dL (3.9-5); Calcium 8.6 mg/dL (8.4-10.2)
--- NOTE | 2022-02-24 02:18 | Emergency Department Report ---
<TED HERNANDEZ - Last Filed: 02/24/22 06:36> ED General Adult HPI - General Chief complaint: Chest Pain Stated complaint: CHEST PAIN Time Seen by Provider: 02/24/22 02:08 Source: EMS Mode of arrival: Stretcher Limitations: No Limitations - History of Present Illness Initial comments: 56-year-old male presents emerged department complaining of a 3-4 -day history of chest pain, unknown etiology he reports his chest pain being sharp and worse with palpation and range of motion and sometimes deep breath. He reports no oc casional cough but no congestion no hemoptysis no hematemesis hematochezia. No wheezing no chest trauma noted. Ambulation does not worsen his symptoms -: Gradual Quality: aching Worsens with: none Associated Symptoms: denies other symptoms, chest pain. denies: loss of appetite, malaise, nausea/vomiting, syncope, weakness Treatments Prior to Arrival: none - Related Data Previous Rx's Medication Instructions Recorded Last Taken Type Aspirin [Aspirin BABY CHEW TAB] 81 mg PO QDAY #30 tab.chew 03/20/14 04/18/21 Rx Insulin NPH/Regular [NovoLIN 70/30] 10 units SQ QAM #30 dose 03/20/14 04/06/21 Rx Sertraline [Zoloft] 75 mg PO QAM #30 tablet 03/20/14 04/06/21 Rx Simvastatin (Nf) [Zocor TAB] 20 mg PO QHS #30 tablet 03/20/14 04/06/21 Rx traZODone [Desyrel] 50 mg PO QHS #30 tablet 02/23/21 04/06/21 Rx cloNIDine [Catapres] 0.1 mg PO BID #60 tablet 05/19/21 Unknown Rx hydrALAZINE [Apresoline TAB] 50 mg PO Q8HR #180 tablet 05/19/21 Unknown Rx amLODIPine 10 mg PO QDAY #90 tablet 02/24/22 Unknown Rx Allergies Allergy/AdvReac Type Severity Reaction Status Date / Time Penicillins Allergy Hives Verified 09/20/17 16:18 ED Review of Systems Comment: All other systems reviewed and negative ED Past Medical Hx - Past Medical History Previous Medical History?: Yes Hx Hypertension: Yes Hx CVA: No Hx Heart Attack/AMI: No Hx Congestive Heart Failure: Yes Hx Diabetes: Yes Hx Psychiatric Treatment: Yes (anxiety) - Social History Smoking Status: Never Smoker Substance Use Type: None - Medications Home Medications: Home Medications Medication Instructions Recorded Confirmed Last Taken Type Aspirin [Aspirin BABY CHEW TAB] 81 mg PO QDAY #30 tab.chew 03/20/14 05/18/21 04/18/21 Rx Insulin NPH/Regular [NovoLIN 70/30] 10 units SQ QAM #30 dose 03/20/14 05/18/21 04/06/21 Rx Sertraline [Zoloft] 75 mg PO QAM #30 tablet 03/20/14 05/18/21 04/06/21 Rx Simvastatin (Nf) [Zocor TAB] 20 mg PO QHS #30 tablet 03/20/14 05/18/21 04/06/21 Rx traZODone [Desyrel] 50 mg PO QHS #30 tablet 02/23/21 05/18/21 04/06/21 Rx cloNIDine [Catapres] 0.1 mg PO BID #60 tablet 05/19/21 Unknown Rx hydrALAZINE [Apresoline TAB] 50 mg PO Q8HR #180 tablet 05/19/21 Unknown Rx amLODIPine 10 mg PO QDAY #90 tablet 02/24/22 Unknown Rx ED Physical Exam - General Limitations: No Limitations General appearance: alert, in no apparent distress - Head Head exam: Present: atraumatic, normocephalic, normal inspection - Eye Eye exam: Present: normal appearance, PERRL, EOMI Pupils: Present: normal accommodation - ENT ENT exam: Present: normal exam, mucous membranes moist - Neck Neck exam: Present: normal inspection, full ROM - Respiratory Respiratory exam: Present: normal lung sounds bilaterally. Absent: respiratory distress, wheezes, rales - Cardiovascular Cardiovascular Exam: Present: regular rate, normal rhythm, normal heart sounds. Absent: bradycardia, tachycardia, systolic murmur, diastolic murmur, rubs, gallop - GI/Abdominal GI/Abdominal exam: Present: soft, normal bowel sounds. Absent: distended, tenderness - Rectal Rectal exam: Present: deferred - Extremities Exam Extremities exam: Present: normal inspection, tenderness, normal capillary refill, pedal edema (Mild bilateral nonpitting edema without). Absent: calf tenderness - Back Exam Back exam: Present: normal inspection. Absent: CVA tenderness (R), CVA tenderness (L), muscle spasm, paraspinal tenderness - Neurological Exam Neurological exam: Present: alert, oriented X3, CN II-XII intact, normal gait - Psychiatric Psychiatric exam: Present: normal affect, normal mood - Skin Skin exam: Present: warm, dry, intact, normal color. Absent: rash, cyanosis, diaphoretic, erythema ED Medical Decision Making - Lab Data Result diagrams: 02/23/22 21:44 02/23/22 21:44 Lab Results 02/23/22 02/23/22 02/24/22 Range/Units 21:44 21:44 01:27 WBC 7.6 (4.5-11.0) K/mm3 RBC 4.30 (3.65-5.03) M/mm3 Hgb 12.4 (11.8-15.2) gm/dl Hct 38.4 (35.5-45.6) % MCV 89 (84-94) fl MCH 29 (28-32) pg MCHC 32 (32-34) % RDW 13.8 (13.2-15.2) % Plt Count 304 (140-440) K/mm3 Lymph % (Auto) 3.6 L (13.4-35.0) % [place] % (Auto) 12.3 H (0.0-7.3) % Eos % (Auto) 0.6 (0.0-4.3) % Baso % (Auto) 0.0 (0.0-1.8) % Lymph # (Auto) 0.3 L (1.2-5.4) K/mm3 [place] # (Auto) 0.9 H (0.0-0.8) K/mm3 Eos # (Auto) 0.0 (0.0-0.4) K/mm3 Baso # (Auto) 0.0 (0.0-0.1) K/mm3 Seg Neutrophils % 83.5 H (40.0-70.0) % Seg Neutrophils # 6.4 (1.8-7.7) K/mm3 Sodium 144 (137-145) mmol/L Potassium 3.9 (3.6-5.0) mmol/L Chloride 104.7 (98-107) mmol/L Carbon Dioxide 28 (22-30) mmol/L Anion Gap 15 mmol/L BUN 16 (9-20) mg/dL Creatinine 1.8 H (0.8-1.3) mg/dL Estimated GFR 47 ml/min BUN/Creatinine Ratio 9 % Glucose 151 H (75-100) mg/dL Calcium 8.6 (8.4-10.2) mg/dL Total Bilirubin 0.30 (0.1-1.2) mg/dL AST 12 (5-40) units/L ALT 6 L (7-56) units/L Alkaline Phosphatase 82 (35-129) units/L Troponin T 0.012 0.014 (0.00-0.029) ng/mL Total Protein 6.5 (6.3-8.2) g/dL Albumin 3.6 L (3.9-5) g/dL Albumin/Globulin Ratio 1.2 % - EKG Data EKG shows normal: sinus rhythm - Radiology Data Radiology results: report reviewed [facility] [address] [place] [address] XRay Report Signed Patient: PAUL MONCADA MR#: [id number] : 1965 Acct:[id number] Age/Sex: 56 / M ADM Date: 02/23/22 Loc: ED Attending Dr: Ordering Physician: ED MD BERKLEY Date of Service: 02/23/22 Procedure(s): XR chest 1V ap Accession Number(s): [id number] cc: ED DOCMD Fluoro Time In Minutes: CHEST 1 VIEW 02/23/2022 9:58 PM INDICATION / CLINICAL INFORMATION: Chest pain. Shortness of breath. COMPARISON: One view of the chest from 05/18/2021. FINDINGS: SUPPORT DEVICES: None. HEART / MEDIASTINUM: No significant abnormality. LUNGS / PLEURA: Generalized bilateral interstitial opacities are noted, left greater than right, with bibasilar predominance. No significant pleural effusion. No pneumothorax. ADDITIONAL FINDINGS: No significant additional findings. IMPRESSION: 1. Bilateral pulmonary opacities, likely representing atelectasis/edema. Signer Name: Javier Delgado MD Signed: 02/23/2022 10:20 PM Workstation Name: [id number] Transcribed By: JESSIE Dictated By: Javier Delgado MD Electronically Authenticated By: Javier Delgado MD Signed Date/Time: 02/23/222219 DD/ 18 TD/TT: - Medical Decision Making This patient presents with chest pain that is very unlikely angina or acute abdoul nary syndrome. The emergency department evaluation has not identified any cause for suspicion that this chest pain has a cardiac etiology. Based on their history, EKG (which showed no evidence of acute ischemia or infarction) and imaging, in addition to the patient's physical exam, I see no evidence at this time for a malignant etiology for the patient's chest pain. Blood pressure was found to be elevated in the 200s over the 115. Was given fluids having some of his blood pressure medications may have contributed to the hypertension. He was treated emergency department with clonidine which improved his blood pressure he rested comfortably for about an hour and a half and blood pressure did remain stable there is no acute evidence for pulmonary embolus, acute myocardial infarction, pneumothorax, Boerhaeve syndrome, cardiac tamponade, thoracic artery dissection, or any other emergent cardiac, pulmonary or aortic pathology. Given the low pre-test probability for cardiac etiology of chest pain and the absence of any sign of ischemia or infarction, discharge for outpatient follow-up and further evaluation is reasonable. Blood pressure improved to 182/ 104 I have explained to the patient that even though a cardiac problem is very unlikely, follow-up and further testing is required to reduce further the already small uncertainty that exists. Other life-threatening diagnoses have been considered. The patient understands the need to return immediately if their symptoms worsen or they develop any new symptoms, and not to engage in any significant exertional activity until follow-up is obtained. ED Disposition Clinical Impression: Chest pain, Hypertension Disposition: HOME / SELF CARE / HOMELESS Is pt being admited?: No Does the pt Need Aspirin: No Condition: Stable Instructions: Coronary Artery Disease, Male, Chest Wall Pain, [id number], Nonspecific Chest Pain, Adult, Hypertension (ED) Additional Instructions: You were evaluated emergency department today for chest pain. Your evaluation has shown no medicals conditions requiring emergent intervention at this time, however recommend that you follow-up with your primary care physician or your aerospace engineer officer armament soon as possible for further testing as an outpatient. Please schedule an appointment for follow-up with your primary care physician as soon as possible. Return to emergency department if you expands worsening uncontrolled chest pain, shortness of breath, lightheadedness, feeling faint, nausea, vomiting or any other concerning symptoms. We also have refilled your amlodipine and you indicated you are out of your blood pressure medication. Please restart this medication immediately to help control your hypertension Prescriptions: amLODIPine 10 mg PO QDAY #90 tablet Referrals: SACHI WU MD [Primary Care Provider] - 3-5 Days GOLDIE MELGOZA MD [Staff Physician] - 3-5 Days <RONALD ESCOBAR U - Last Filed: 02/26/22 19:30> ED Review of Systems ROS: Stated complaint: CHEST PAIN Other details as noted in HPI ED Course Vital Signs 02/23/22 02/24/22 02/24/22 20:41 02:36 02:41 Temperature 97.8 F Pulse Rate 96 H 92 H 92 H Respiratory 18 12 Rate Blood Pressure 200/130 219/131 Blood Pressure 219/131 [Right] O2 Sat by Pulse 96 99 Oximetry 02/24/22 07:07 Temperature Pulse Rate 74 Respiratory 16 Rate Blood Pressure Blood Pressure 170/100 [Right] O2 Sat by Pulse 98 Oximetry ED Medical Decision Making - Lab Data Result diagrams: 02/23/22 21:44 02/23/22 21:44 Laboratory Tests 02/23/22 02/23/22 02/24/22 21:44 21:44 01:27 WBC 7.6 RBC 4.30 Hgb 12.4 Hct 38.4 MCV 89 MCH 29 MCHC 32 RDW 13.8 Plt Count 304 Lymph % (Auto) 3.6 L [place] % (Auto) 12.3 H Eos % (Auto) 0.6 Baso % (Auto) 0.0 Lymph # (Auto) 0.3 L [place] # (Auto) 0.9 H Eos # (Auto) 0.0 Baso # (Auto) 0.0 Seg Neutrophils % 83.5 H Seg Neutrophils # 6.4 Sodium 144 Potassium 3.9 Chloride 104.7 Carbon Dioxide 28 Anion Gap 15 BUN 16 Creatinine 1.8 H Estimated GFR 47 BUN/Creatinine Ratio 9 Glucose 151 H Calcium 8.6 Total Bilirubin 0.30 AST 12 ALT 6 L Alkaline Phosphatase 82 Troponin T 0.012 0.014 Total Protein 6.5 Albumin 3.6 L Albumin/Globulin Ratio 1.2 02/24/22 03:21 WBC RBC Hgb Hct MCV MCH MCHC RDW Plt Count Lymph % (Auto) [place] % (Auto) Eos % (Auto) Baso % (Auto) Lymph # (Auto) [place] # (Auto) Eos # (Auto) Baso # (Auto) Seg Neutrophils % Seg Neutrophils # Sodium Potassium Chloride Carbon Dioxide Anion Gap BUN Creatinine Estimated GFR BUN/Creatinine Ratio Glucose Calcium Total Bilirubin AST ALT Alkaline Phosphatase Troponin T 0.012 Total Protein Albumin Albumin/Globulin Ratio CXR: bilateral infiltrates EKG: - Medical Decision Making I have reviewed the PA/UNEMPLOYMENT INSURANCE DIRECTOR's note and plan of care. I was available for consultation as needed at all times during the patient's visit in the emergency department but was not consulted on this case. However, I do not agree with the plan or disposition. Patient presented with complaints of CP and SOB. Had BPs in the 210s/130s. CXR showed bilateral pulmonary infiltrates. EKG with reporlarization changes. Patient with hx of HTN, hyperlipidemia, DM and also with a HEART score of at least 6. Presentation worrisome for hypertensive emergency with CHF exacerbation/pulmonary edema. ACS needs to be ruled out. PE less likely but also in differential. I called patient at phone # [phone] and patient indicated he was still having CP, SOB and also had swelling in both of his legs. I advised the patient to go back to the ER now. Patient and (Gisell Moncada) indicated understanding of instructions and agreed with plan. Critical care attestation.: If time is entered above; I have spent that time in minutes in the direct care of this critically ill patient, excluding procedure time.
[2022-02-24] MEDS ORDERED: cloNIDine 0.2 MG TAB PO STA (02:30)
[2022-02-24 07:09] VITALS: BP 170/100
--- NOTE | 2022-02-24 10:34 | Electrocardiograph Report ---
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
== END 2022-02-24 07:08 | disposition home or self-care (01) ==
LOC: ED 20:40
DX: R07.9 Chest pain, unspecified (principal); I11.0 Hypertensive heart disease with heart failure; I50.20 Unspecified systolic (congestive) heart failure; E11.9 Type 2 diabetes mellitus without complications; F41.9 Anxiety disorder, unspecified; Z79.899 Other long term (current) drug therapy; Z88.0 Allergy status to penicillin
CPT/HCPCS: 36415; 71045; 80053; 84484; 85025; 93005; 99284

== ENCOUNTER 2022-02-26 22:03 | Inpatient (IN) | payer SELFPAY ==
[2022-02-27] MEDS ORDERED: ASPIRIN 81 MG TAB CHEW PO ONE (01:10)
[2022-02-27] MEDS ORDERED: NITROGLYCERIN 0.4 MG TAB SUBL SL ONE (01:10)
--- NOTE | 2022-02-27 01:41 | Emergency Department Report ---
ED General Adult HPI - General Chief complaint: Chest Pain Stated complaint: CALL TO COME BACK IN BY EMERGENCY MD Time Seen by Provider: 02/27/22 01:10 Source: patient, family Mode of arrival: Ambulatory Limitations: No Limitations - History of Present Illness Initial comments: Patient is 56 years old male with history of hypertension. Patient stated that he was called by an ER physician and asked him to come to the ER because he look at his x-ray and showed that he has fluid in his lungs or pneumonia. Patient is also complaining of chest pain but he stated that this is resolved. Patient stated that he is out of his blood pressure medicine and trazodone. Patient denied any fever or chills. He is complaining of mild shortness of breath. Severity scale (0 -10): 7 - Related Data Previous Rx's Medication Instructions Recorded Last Taken Type Aspirin [Aspirin BABY CHEW TAB] 81 mg PO QDAY #30 tab.chew 03/20/14 04/18/21 Rx Insulin NPH/Regular [NovoLIN 70/30] 10 units SQ QAM #30 dose 03/20/14 04/06/21 Rx Sertraline [Zoloft] 75 mg PO QAM #30 tablet 03/20/14 04/06/21 Rx Simvastatin (Nf) [Zocor TAB] 20 mg PO QHS #30 tablet 03/20/14 04/06/21 Rx traZODone [Desyrel] 50 mg PO QHS #30 tablet 02/23/21 04/06/21 Rx cloNIDine [Catapres] 0.1 mg PO BID #60 tablet 05/19/21 Unknown Rx hydrALAZINE [Apresoline TAB] 50 mg PO Q8HR #180 tablet 05/19/21 Unknown Rx amLODIPine 10 mg PO QDAY #90 tablet 02/24/22 Unknown Rx Allergies Allergy/AdvReac Type Severity Reaction Status Date / Time Penicillins Allergy Hives Verified 09/20/17 16:18 ED Review of Systems ROS: Stated complaint: CALL TO COME BACK IN BY EMERGENCY MD Other details as noted in HPI Comment: All other systems reviewed and negative Constitutional: denies: chills, fever Respiratory: shortness of breath. denies: cough, orthopnea, SOB with exertion, SOB at rest, wheezing Cardiovascular: chest pain. denies: palpitations, dyspnea on exertion Gastrointestinal: denies: abdominal pain, nausea, vomiting, diarrhea, constipation, hematemesis, melena ED Past Medical Hx - Past Medical History Hx Hypertension: Yes Hx CVA: No Hx Heart Attack/AMI: No Hx Congestive Heart Failure: Yes Hx Diabetes: Yes Hx Psychiatric Treatment: Yes (anxiety) - Social History Smoking Status: Never Smoker - Medications Home Medications: Home Medications Medication Instructions Recorded Confirmed Last Taken Type Aspirin [Aspirin BABY CHEW TAB] 81 mg PO QDAY #30 tab.chew 03/20/14 05/18/21 04/18/21 Rx Insulin NPH/Regular [NovoLIN 70/30] 10 units SQ QAM #30 dose 03/20/14 05/18/21 04/06/21 Rx Sertraline [Zoloft] 75 mg PO QAM #30 tablet 03/20/14 05/18/21 04/06/21 Rx Simvastatin (Nf) [Zocor TAB] 20 mg PO QHS #30 tablet 03/20/14 05/18/21 04/06/21 Rx traZODone [Desyrel] 50 mg PO QHS #30 tablet 02/23/21 05/18/21 04/06/21 Rx cloNIDine [Catapres] 0.1 mg PO BID #60 tablet 05/19/21 Unknown Rx hydrALAZINE [Apresoline TAB] 50 mg PO Q8HR #180 tablet 05/19/21 Unknown Rx amLODIPine 10 mg PO QDAY #90 tablet 02/24/22 Unknown Rx ED Physical Exam - General Limitations: No Limitations General appearance: alert, in no apparent distress - Head Head exam: Present: atraumatic, normocephalic, normal inspection - Eye Eye exam: Present: normal appearance - ENT ENT exam: Present: normal exam, normal orophraynx, mucous membranes moist - Neck Neck exam: Present: normal inspection, full ROM. Absent: tenderness, meningismus - Respiratory Respiratory exam: Present: normal lung sounds bilaterally - Cardiovascular Cardiovascular Exam: Present: regular rate, normal rhythm, normal heart sounds - GI/Abdominal GI/Abdominal exam: Present: soft, normal bowel sounds. Absent: distended, tenderness, guarding, rebound, rigid, organomegaly, mass, bruit, pulsatile mass, hernia - Extremities Exam Extremities exam: Present: normal inspection, full ROM, normal capillary refill. Absent: tenderness - Back Exam Back exam: Present: normal inspection, full ROM. Absent: CVA tenderness (R), CVA tenderness (L) - Neurological Exam Neurological exam: Present: alert, oriented X3, CN II-XII intact, normal gait, reflexes normal. Absent: motor sensory deficit - Psychiatric Psychiatric exam: Present: normal mood - Skin Skin exam: Present: warm, intact, normal color ED Course Vital Signs 02/26/22 02/27/22 02/27/22 22:44 01:13 01:16 Temperature 98.1 F Pulse Rate 84 84 83 Respiratory 16 25 H 21 Rate Blood Pressure 212/123 100/50 O2 Sat by Pulse 95 94 94 Oximetry 02/27/22 01:23 Temperature Pulse Rate Respiratory 18 Rate Blood Pressure O2 Sat by Pulse 99 Oximetry ED Medical Decision Making - Lab Data Result diagrams: 02/27/22 01:22 02/27/22 01:22 - EKG Data -: EKG Interpreted by Me EKG shows normal: sinus rhythm - EKG Data Interpretation: no acute changes - Radiology Data Radiology results: report reviewed - Medical Decision Making Patient is 56 years old male with history of hypertension. Patient stated that he was called by an ER physician and asked him to come to the ER because he look at his x-ray and showed that he has fluid in his lungs or pneumonia. Patient is also complaining of chest pain but he stated that this is resolved. Patient stated that he is out of his blood pressure medicine and trazodone. Patient denied any fever or chills. He is complaining of mild shortness of breath. EKG is unremarkable. Labs reviewed and showed a BNP of 28,000. Chest x-ray showed pulmonary edema and pleural effusion. Patient received Lasix. I discussed the patient with Dr. Bailey, he agreed to admit the patient to medical service for further management. Critical Care Time: Yes Critical care time in (mins) excluding proc time.: 35 Critical care attestation.: If time is entered above; I have spent that time in minutes in the direct care of this critically ill patient, excluding procedure time. ED Disposition Clinical Impression: New onset of congestive heart failure Disposition: ADMITTED INPATIENT Is pt being admited?: Yes Condition: Stable
[2022-02-27 01:53] LABS: Hemoglobin 11.5 gm/dl (11.8-15.2); Mean Corpuscular HGB Conc 32 % (32-34); Mean Corpuscular Volume 90 fl (84-94); Platelet Count 277 K/mm3 (140-440); Red Cell Distribution Width 13.9 % (13.2-15.2)
[2022-02-27 01:57] LABS: BUN/Creatinine Ratio 10; Blood Urea Nitrogen 21 mg/dL (9-20); Calcium 8.2 mg/dL (8.4-10.2); Hemolysis Index 4
--- NOTE | 2022-02-27 01:58 | XRay Report ---
CHEST 1 VIEW 02/27/2022 1:41 AM INDICATION / CLINICAL INFORMATION: Chest Pain. COMPARISON: One view of the chest from 02/23/2022. FINDINGS: SUPPORT DEVICES: None. HEART / MEDIASTINUM: Stable. LUNGS / PLEURA: Bibasilar opacities are again seen with a questionable small left pleural effusion. T he upper lungs are clear. No pneumothorax. ADDITIONAL FINDINGS: No significant additional findings. IMPRESSION: 1. Persistent bibasilar opacities, likely representing atelectasis versus pneumonia, with development of a questionable small left pleural effusion. Signer Name: Javier Delgado MD Signed: 02/27/2022 1:53 AM Workstation Name: [id number]
[2022-02-27 02:08] LABS: INR 0.92 (0.87-1.13)
[2022-02-27 02:09] LABS: Partial Thromboplastin Time 31.2 Sec. (24.2-36.6)
[2022-02-27] MEDS ORDERED: FUROSEMIDE 40 MG/4 ML INJ IV ONE (02:49)
[2022-02-27] MEDS ORDERED: ACETAMINOPHEN 325 MG TAB PO PRN (04:04)
[2022-02-27] MEDS ORDERED: ALBUTEROL 2.5 MG/3 ML NEBU IH PRN (04:04)
[2022-02-27] MEDS ORDERED: DEXTROSE 50% IN WATER (25GM) 50 ML SYRINGE IV PRN (04:04)
[2022-02-27] MEDS ORDERED: MORPHINE 2 MG/1 ML INJ IV PRN (04:04)
--- NOTE | 2022-02-27 05:26 | History and Physical Report ---
History of Present Illness Date of examination: 02/27/22 Date of admission: 02/27/22 Chief complaint: Shortness of breath History of present illness: 56 years old male with history of hypertension and diabetes was brought to the emergency room because of progressive shortness of breath. patient was called by an ER physician and asked him to come to the ER because he look at his x-ray and showed that he has fluid in his lungs or pneumonia. Patient is also comp laining of chest pain but he stated that this is resolved. Patient stated that he is out of his blood pressure medicine and trazodone. Patient denied any fever or chills. He is complaining of mild shortness of breath. EKG is unremarkable. Labs reviewed and showed a BNP of 28,000. Chest x-ray s howed pulmonary edema and pleural effusion.'s were going to admit the patient . We will put the patient on CHF pathway IV Lasix and echocardiogram Past History Past Medical History: diabetes, hypertension, liver disease, PVD, renal failure, seizures Past Surgical History: No surgical history Social history: no significant social history Family history: hypertension Medications and Allergies Allergies Allergy/AdvReac Type Severity Reaction Status Date / Time Penicillins Allergy Hives Verified 09/20/17 16:18 Home Medications Medication Instructions Recorded Confirmed Last Taken Type Aspirin [Aspirin BABY CHEW TAB] 81 mg PO QDAY #30 tab.chew 03/20/14 05/18/21 04/18/21 Rx Insulin NPH/Regular [NovoLIN 70/30] 10 units SQ QAM #30 dose 03/20/14 05/18/21 04/06/21 Rx Sertraline [Zoloft] 75 mg PO QAM #30 tablet 03/20/14 05/18/21 04/06/21 Rx Simvastatin (Nf) [Zocor TAB] 20 mg PO QHS #30 tablet 03/20/14 05/18/21 04/06/21 Rx traZODone [Desyrel] 50 mg PO QHS #30 tablet 02/23/21 05/18/21 04/06/21 Rx cloNIDine [Catapres] 0.1 mg PO BID #60 tablet 05/19/21 Unknown Rx hydrALAZINE [Apresoline TAB] 50 mg PO Q8HR #180 tablet 05/19/21 Unknown Rx amLODIPine 10 mg PO QDAY #90 tablet 02/24/22 Unknown Rx Active Meds: Active Medications Acetaminophen (Acetaminophen 325 Mg Tab) 650 mg PO Q4H PRN PRN Reason: Pain MILD(1-3)/Fever >100.5/DEE Albuterol (Albuterol 2.5 Mg/3 Ml Nebu) 2.5 mg IH Q3HRT PRN PRN Reason: Shortness Of Breath Albuterol/Ipratropium (Ipratropium/Albuterol Sulfate 3 Ml Ampul.Neb) 1 ampul IH Q6HRT [facility] Amlodipine Besylate (Amlodipine 10 Mg Tab) 10 mg PO QDAY YENNI Aspirin (Aspirin 81 Mg Tab Chew) 81 mg PO QDAY YENNI Clonidine HCl (Clonidine 0.1 Mg Tab) 0.1 mg PO BID [facility] Dextrose (Dextrose 50% In Water (25gm) 50 Ml Syringe) 50 ml IV Q30MIN PRN; Protocol PRN Reason: Hypoglycemia Famotidine (Famotidine 10 Mg Tab) 10 mg PO BID [facility] Furosemide (Furosemide 40 Mg/4 Ml Inj) 40 mg IV BID@0600,1800 [facility] Heparin Sodium (Porcine) (Heparin 5,000 Unit/1 Ml Vial) 5,000 unit SUB-Q Q12HR [facility] Hydralazine HCl (Hydralazine 25 Mg Tab) 50 mg PO Q8HR [facility] Hydromorphone HCl (Hydromorphone 1 Mg/1 Ml Inj) 0.5 mg IV Q3H PRN PRN Reason: Pain , Severe (7-10) Insulin Human Lispro (Insulin Lispro 100 Unit/Ml) 0 unit SUB-Q ACHS YENNI; Protocol Morphine Sulfate (Morphine 2 Mg/1 Ml Inj) 2 mg IV Q4H PRN PRN Reason: Pain, Moderate (4-6) Ondansetron HCl (Ondansetron 4 Mg/2 Ml Inj) 4 mg IV Q8H PRN PRN Reason: Nausea And Vomiting Pravastatin Sodium (Pravastatin 40 Mg Tab) 40 mg PO QHS [facility] Sertraline HCl (Sertraline 50 Mg Tab) 75 mg PO QAM [facility] Sodium Chloride (Sodium Chloride 0.9% 10 Ml Flush Syringe) 10 ml IV BID [facility] Sodium Chloride (Sodium Chloride 0.9% 10 Ml Flush Syringe) 10 ml IV PRN PRN PRN Reason: LINE FLUSH Trazodone HCl (Trazodone 50 Mg Tab) 50 mg PO QHS [facility] Review of Systems All systems: negative Cardiovascular: orthopnea, edema, shortness of breath, dyspnea on exertion Respiratory: shortness of breath, dyspnea on exertion Exam - Constitutional Vitals: Temp Pulse Resp BP Pulse Ox 98.1 F 83 18 100/50 99 02/26/22 22:44 02/27/22 01:16 02/27/22 01:23 02/27/22 01:16 02/27/22 01:23 General appearance: Present: no acute distress, well-nourished - EENT Eyes: Present: PERRL ENT: hearing intact, clear oral mucosa - Neck Neck: Present: supple, normal ROM - Respiratory Respiratory effort: normal Respiratory: bilateral: rales - Cardiovascular Heart Sounds: Present: S1 & S2. Absent: rub, click - Extremities Extremities: pulses symmetrical Extremity abnormal: edema Peripheral Pulses: within normal limits - Abdominal General gastrointestinal: Present: soft, non-tender, non-distended, normal bowel sounds Male genitourinary: Present: normal - Integumentary Integumentary: Present: clear, warm, dry - Musculoskeletal Musculoskeletal: gait normal, strength equal bilaterally - Psychiatric Psychiatric: appropriate mood/affect, intact judgment & insight - Neurologic Neurologic: CNII-XII intact, moves all extremities HEART Score - HEART Score Troponin: Troponin T < 0.010 ng/mL (0.00-0.029) 02/27/22 04:41 Results - Labs CBC & Chem 7: 02/27/22 01:22 02/27/22 01:22 Labs: Laboratory Last Values WBC 6.0 K/mm3 (4.5-11.0) 02/27/22 01:22 RBC 4.00 M/mm3 (3.65-5.03) 02/27/22 01:22 Hgb 11.5 gm/dl (11.8-15.2) L 02/27/22 01:22 Hct 36.0 % (35.5-45.6) 02/27/22 01:22 MCV 90 fl (84-94) 02/27/22 01:22 MCH 29 pg (28-32) 02/27/22 01:22 MCHC 32 % (32-34) 02/27/22 01:22 RDW 13.9 % (13.2-15.2) 02/27/22 01:22 Plt Count 277 K/mm3 (140-440) 02/27/22 01:22 Lymph % (Auto) [employer] Preparation Supervisor 02/27/22 01:22 Seg Neutrophils % [employer] Supervisor 02/27/22 01:22 PT 13.3 Sec. (12.2-14.9) 02/27/22 01:22 INR 0.92 (0.87-1.13) 02/27/22 01:22 APTT 31.2 Sec. (24.2-36.6) 02/27/22 01:22 Sodium 142 mmol/L (137-145) 02/27/22 01:22 Potassium 4.0 mmol/L (3.6-5.0) 02/27/22 01:22 Chloride 103.3 mmol/L (98-107) 02/27/22 01:22 Carbon Dioxide 28 mmol/L (22-30) 02/27/22 01:22 Anion Gap 15 mmol/L 02/27/22 01:22 BUN 21 mg/dL (9-20) H 02/27/22 01:22 Creatinine 2.1 mg/dL (0.8-1.3) H 02/27/22 01:22 Estimated GFR 39 ml/min 02/27/22 01:22 BUN/Creatinine Ratio 10 % 02/27/22 01:22 Glucose 231 mg/dL (75-100) H 02/27/22 01:22 Calcium 8.2 mg/dL (8.4-10.2) L 02/27/22 01:22 Troponin T < 0.010 ng/mL (0.00-0.029) 02/27/22 04:41 NT-Pro-B Natriuret Pep 21327 pg/mL (0-900) H 02/27/22 01:22 Lipase 10 units/L (13-60) L 02/27/22 01:22 - Imaging and Cardiology Chest x-ray: report reviewed Assessment and Plan VTE prophylaxis?: Chemical Plan of care discussed with patient/family: Yes - Patient Problems (1) New onset of congestive heart failure Current Visit: Yes Status: Acute Plan to address problem: Admit the patient to the medical telemetry. Fluid restriction. Maintain input output. Lasix 40 mg IV every 12 hours. Daily weight. Echocardiogram. Consult cardiology if needed (2) Diabetes 1.5, managed as type 2 Current Visit: No Status: Acute Plan to address problem: 1800 kcal ADA diet. Accu-Chek before meals and at bedtime with moderate dose Humalog coverage. Diabetic education (3) Hypertension Current Visit: No Status: Acute Plan to address problem: Amlodipine 10 mg p.o. daily. Hydrochlorothiazide 12.5 mg p.o. daily. We continue the home medication (4) Panic attack Current Visit: Yes Status: Acute Plan to address problem: Stable. We continue the home medication (5) DVT prophylaxis Current Visit: No Status: Acute Plan to address problem: Heparin 5000 units subcu every 12 hours. Pepcid 20 mg p.o. twice daily for GI prophylaxis. Patient is a full code
[2022-02-27] MEDS: HYDROmorphone 1 MG/1 ML INJ IV PRN ×2 (05:50→09:44)
[2022-02-27] MEDS: hydrALAZINE 25 MG TAB PO SCH ×3 (05:50→22:20)
[2022-02-27 06:04] LABS: Basophils % (Manual) 0 % (0.0-1.8); Monocytes % (Manual) 0 % (0.0-7.3); Total Cells Counted 100
[2022-02-27 06:05] LABS: Platelet Estimate Consistent w Auto; RBC Morphology Normal
[2022-02-27] MEDS: FUROSEMIDE 40 MG/4 ML INJ IV SCH ×2 (06:59→18:16)
[2022-02-27] MEDS: INSULIN LISPRO 100 UNIT/ML SUB-Q SCH ×3 (07:35→18:17)
[2022-02-27] MEDS: IPRATROPIUM/ALBUTEROL SULFATE 3 ML AMPUL.NEB IH SCH ×3 (08:25→20:46)
[2022-02-27] MEDS: FAMOTIDINE 10 MG TAB PO SCH ×2 (09:14→22:19)
[2022-02-27] MEDS: amLODIPine 10 MG TAB PO SCH (09:14)
[2022-02-27] MEDS: ASPIRIN 81 MG TAB CHEW PO SCH (09:14)
[2022-02-27] MEDS: SERTRALINE 50 MG TAB PO SCH (09:14)
[2022-02-27] MEDS: cloNIDine 0.1 MG TAB PO SCH ×2 (09:14→22:19)
[2022-02-27] MEDS: HEPARIN 5,000 UNIT/1 ML VIAL SUB-Q SCH ×2 (09:15→22:20)
[2022-02-27] MEDS: ONDANSETRON 4 MG/2 ML INJ IV PRN ×2 (09:44→19:39)
[2022-02-27] MEDS ORDERED: FAMOTIDINE 20 MG TAB PO SCH (10:00)
--- NOTE | 2022-02-27 10:48 | Electrocardiograph Report ---
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
--- NOTE | 2022-02-27 10:49 | Electrocardiograph Report ---
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
--- NOTE | 2022-02-27 13:01 | Consultation ---
History of Present Illness Consult date: 02/27/22 Requesting physician: REAGAN BROWN Consult reason: congestive heart failure, shortness of breath History of present illness: 56-year-old gentleman with a past medical history of hypertension and diabetes presents to [facility] emergency department complaining of increasing bilateral leg swelling and shortness of breath. The patient admits that he has been out of his medications for several weeks. Initially when he presented to the emergency department he was complaining of chest pain which has resolved. His blood pressure is 186/112 mmHg. Blood glucose was 231 and creatinine was 2.1 with a BNP of 28,000. Chest x-ray revealed persistent bibasilar opacities with cardiac enzymes negative x3. An EKG reveals sinus rhythm with some ST changes anteriorly and laterally. Past History Past Medical History: diabetes, hypertension, liver disease, PVD, renal failure, seizures Past Surgical History: No surgical history Social history: no significant social history Family history: hypertension Medications and Allergies Allergies Allergy/AdvReac Type Severity Reaction Status Date / Time Penicillins Allergy Hives Verified 09/20/17 16:18 Home Medications Medication Instructions Recorded Confirmed Last Taken Type Aspirin [Aspirin BABY CHEW TAB] 81 mg PO QDAY #30 tab.chew 03/20/14 05/18/21 04/18/21 Rx Insulin NPH/Regular [NovoLIN 70/30] 10 units SQ QAM #30 dose 03/20/14 05/18/21 04/06/21 Rx Sertraline [Zoloft] 75 mg PO QAM #30 tablet 03/20/14 05/18/21 04/06/21 Rx Simvastatin (Nf) [Zocor TAB] 20 mg PO QHS #30 tablet 03/20/14 05/18/21 04/06/21 Rx traZODone [Desyrel] 50 mg PO QHS #30 tablet 02/23/21 05/18/21 04/06/21 Rx cloNIDine [Catapres] 0.1 mg PO BID #60 tablet 05/19/21 Unknown Rx hydrALAZINE [Apresoline TAB] 50 mg PO Q8HR #180 tablet 05/19/21 Unknown Rx amLODIPine 10 mg PO QDAY #90 tablet 02/24/22 Unknown Rx Active Meds: Active Medications Acetaminophen (Acetaminophen 325 Mg Tab) 650 mg PO Q4H PRN PRN Reason: Pain MILD(1-3)/Fever >100.5/DEE Albuterol (Albuterol 2.5 Mg/3 Ml Nebu) 2.5 mg IH Q3HRT PRN PRN Reason: Shortness Of Breath Albuterol/Ipratropium (Ipratropium/Albuterol Sulfate 3 Ml Ampul.Neb) 1 ampul IH Q6HRT [facility] Last Admin: 02/27/22 08:25 Dose: 1 ampul Amlodipine Besylate (Amlodipine 10 Mg Tab) 10 mg PO QDAY [facility] Last Admin: 02/27/22 09:14 Dose: 10 mg Aspirin (Aspirin 81 Mg Tab Chew) 81 mg PO QDAY [facility] Last Admin: 02/27/22 09:14 Dose: 81 mg Atorvastatin Calcium (Atorvastatin 40 Mg Tab) 40 mg PO QHS [facility] Clonidine HCl (Clonidine 0.1 Mg Tab) 0.1 mg PO BID [facility] Last Admin: 02/27/22 09:14 Dose: 0.1 mg Dextrose (Dextrose 50% In Water (25gm) 50 Ml Syringe) 50 ml IV Q30MIN PRN; Protocol PRN Reason: Hypoglycemia Famotidine (Famotidine 10 Mg Tab) 10 mg PO BID [facility] Last Admin: 02/27/22 09:14 Dose: 10 mg Furosemide (Furosemide 40 Mg/4 Ml Inj) 40 mg IV BID@0600,1800 [facility] Last Admin: 02/27/22 06:59 Dose: 40 mg Heparin Sodium (Porcine) (Heparin 5,000 Unit/1 Ml Vial) 5,000 unit SUB-Q Q12HR [facility] Last Admin: 02/27/22 09:15 Dose: 5,000 unit Hydralazine HCl (Hydralazine 25 Mg Tab) 50 mg PO Q8HR [facility] Last Admin: 02/27/22 05:50 Dose: 50 mg Hydromorphone HCl (Hydromorphone 1 Mg/1 Ml Inj) 0.5 mg IV Q3H PRN PRN Reason: Pain , Severe (7-10) Last Admin: 02/27/22 09:44 Dose: 0.5 mg Insulin Human Lispro (Insulin Lispro 100 Unit/Ml) 0 unit SUB-Q ACHS [facility]; Protocol Last Admin: 02/27/22 07:35 Dose: 2 unit Morphine Sulfate (Morphine 2 Mg/1 Ml Inj) 2 mg IV Q4H PRN PRN Reason: Pain, Moderate (4-6) Ondansetron HCl (Ondansetron 4 Mg/2 Ml Inj) 4 mg IV Q8H PRN PRN Reason: Nausea And Vomiting Last Admin: 02/27/22 09:44 Dose: 4 mg Sertraline HCl (Sertraline 50 Mg Tab) 75 mg PO QAM [facility] Last Admin: 02/27/22 09:14 Dose: 75 mg Sodium Chloride (Sodium Chloride 0.9% 10 Ml Flush Syringe) 10 ml IV BID [facility] Last Admin: 02/27/22 09:16 Dose: 10 ml Sodium Chloride (Sodium Chloride 0.9% 10 Ml Flush Syringe) 10 ml IV PRN PRN PRN Reason: LINE FLUSH Trazodone HCl (Trazodone 50 Mg Tab) 50 mg PO QHS [facility] Review of Systems Constitutional: no weight loss, no weight gain Ears, nose, mouth and throat: deferred Cardiovascular: chest pain, orthopnea, shortness of breath, dyspnea on exertion Respiratory: no cough, no hemoptysis Gastrointestinal: no nausea, no vomiting Genitourinary Male: no dysuria, no flank pain Rectal: no pain, no incontinence Musculoskeletal: no neck stiffness, no neck pain Integumentary: deferred, no rash, no pruritis Neurological: no head injury, no transient paralysis Psychiatric: no anxiety, no memory loss Endocrine: no cold intolerance, no heat intolerance Physical Examination Vital Signs Temp Pulse Resp BP Pulse Ox 98.1 F 84 16 212/123 95 02/26/22 22:44 02/26/22 22:44 02/26/22 22:44 02/26/22 22:44 02/26/22 22:44 General appearance: no acute distress HEENT: Positive: PERRL Neck: Positive: neck supple Cardiac: Positive: Reg Rate and Rhythm Lungs: Positive: Decreased Breath Sounds Abdomen: Positive: Soft, Active Bowel Sounds Male genitourinary: Positive: deferred Skin: Negative: Rash Extremities: Present: +2 Edema, warm Results 02/27/22 01:22 02/27/22 01:22 Coagulation 02/27/22 Range/Units 01:22 PT 13.3 (12.2-14.9) Sec. INR 0.92 (0.87-1.13) APTT 31.2 (24.2-36.6) Sec. CBC 02/27/22 Range/Units 01:22 WBC 6.0 (4.5-11.0) K/mm3 RBC 4.00 (3.65-5.03) M/mm3 Hgb 11.5 L (11.8-15.2) gm/dl Hct 36.0 (35.5-45.6) % Plt Count 277 (140-440) K/mm3 Comprehensive Metabolic Panel 02/27/22 Range/Units 01:22 Sodium 142 (137-145) mmol/L Potassium 4.0 (3.6-5.0) mmol/L Chloride 103.3 (98-107) mmol/L Carbon Dioxide 28 (22-30) mmol/L BUN 21 H (9-20) mg/dL Creatinine 2.1 H (0.8-1.3) mg/dL Glucose 231 H (75-100) mg/dL Calcium 8.2 L (8.4-10.2) mg/dL EKG interpretations - Telemetry EKG Rhythm: Sinus Rhythm Assessment and Plan Acute CHF Accelerated hypertension Acute kidney injury Chest pain Noncompliance with meds Hypertension Diabetes Recommend echocardiogram with contrast Patient's hypertensive regimen currently is amlodipine 10 mg daily, clonidine 0.1 mg twice daily, hydralazine 50 mg 3 times daily Consider carvedilol twice a day unless contraindicated Strict I's and O's Monitor potassium and creatinine Continue intravenous diuresis
--- NOTE | 2022-02-27 13:41 | Event Note ---
Date: 02/27/22 Patient was evaluated this morning, and he was found to be hemodynamically stable. #Acute onset heart failure - Continue CHF exacerbation protocol: Telemetry, Strict I/O, monitor urine output every shift, daily weights, afterload reduction, low-sodium diet, and fluid restriction of approximately 1.5 mL/day, IV Lasix 40 mg daily - Supplemental oxygen: None - ProBNP on admission: ,051 - Cardiology consulted; appreciate recs -Pending TTE to evaluate EF/cardiac function. Negative troponin x2. Negative lipase. 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 hydralazine 50 mg every 8 hours - current medications: Amlodipine 10 mg daily, Coreg 6.25 mg twice daily, clonidine 0.1 mg twice daily, p.o. hydralazine 50 mg every 8 hours - SBP goal <160 and DBP goal <90 while inpatient - continue to monitor #History of panic attacks Continue home meds #Coordination of CARE time: 30 minutes. Total visit time equals 30 or more minutes with greater than 50% spent [id number] on coordination of care and counseling.
--- NOTE | 2022-02-27 13:43 | Progress Note ---
Assessment and Plan Assessment and plan: #Acute on chronic systolic heart failure #Severe pulmonary hypertension secondary to left heart failure - Continue CHF exacerbation protocol: Telemetry, Strict I/O, monitor urine output every shift, daily weights, afterload reduction, low-sodium diet, and fluid restriction of approximately 1.5 mL/day, IV Lasix 40 mg daily (holding in the setting of NICKY worsening) - Supplemental oxygen: None - ProBNP on admission: 05 - Cardiology consulted; appreciate recs -TTE revealing EF 35-40% with mildly dilated LV, moderately decreased LV systolic function, moderate concentric LVH, mildly dilated RV, mildly hypokinetic RV, moderately dilated LA, mildly dilated RA, RVSP 85-90 mmHg.. Pending left lower extremity venous Doppler to rule out DVT. Negative t roponin x2. - Continue to monitor #NICKY on CKD stage III #Cardiorenal syndrome Creatinine 2.1--> 2.5 Likely secondary to heart failure exacerbation + worsened with IV diuresis Holding Lasix in the setting of acute creatinine increase. Consider consulting nephrology if creatinine worsens Renally dose meds and avoid nephrotoxic drugs. Continue to monitor. 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 hydralazine 50 mg every 8 hours - current medications: Amlodipine 10 mg daily, Coreg 6.25 mg twice daily, clonidine 0.1 mg twice daily, p.o. hydralazine 50 mg every 8 hours - SBP goal <160 and DBP goal <90 while inpatient - continue to monitor #History of panic attacks Continue home meds #Advanced care planning -Disease education conducted, care plan discussed, diagnoses discussed, prognosis discussed, and patient acknowledges understanding with care plan -Time: +30 min Disposition Plan: Continue medical management Total Time Spent with Patient (Minutes): 45 minutes History Interval history: No acute events overnight. Hospitalist Physical - Constitutional Vitals: Temp Pulse Resp BP Pulse Ox 98.1 F 83 18 153/91 85 02/27/22 11:58 02/27/22 13:39 02/27/22 11:58 02/27/22 11:58 02/27/22 11:58 General appearance: Present: no acute distress, well-nourished - EENT Eyes: Present: PERRL (Visually impaired), EOM intact ENT: hearing intact, clear oral mucosa, dentition normal - Neck Neck: Present: supple, normal ROM - Respiratory Respiratory effort: normal Respiratory: bilateral: diminished (On 2 L nasal cannula) - Cardiovascular Rhythm: irregularly irregular Heart Sounds: Present: S1 & S2 - Extremities Extremities: no ischemia, pulses intact, pulses symmetrical, normal temperature, normal color, Full ROM Extremity abnormal: edema (1+ pitting edema of bilateral lower extremities), tenderness (Significant tenderness of left lower extremity on mild palpation) Peripheral Pulses: within normal limits - Abdominal General gastrointestinal: soft, non-tender, non-distended, normal bowel sounds - Integumentary Integumentary: Present: clear, warm, dry - Psychiatric Psychiatric: appropriate mood/affect, cooperative - Neurologic Neurologic: CNII-XII intact, moves all extremities - Allied Health Allied health notes reviewed: nursing HEART Score - HEART Score Troponin: Troponin T < 0.010 ng/mL (0.00-0.029) 02/27/22 07:34 Results - Labs CBC & Chem 7: 02/28/22 05:47 02/28/22 05:47 Labs: Laboratory Last Values WBC 6.0 K/mm3 (4.5-11.0) 02/27/22 01:22 RBC 4.00 M/mm3 (3.65-5.03) 02/27/22 01:22 Hgb 11.5 gm/dl (11.8-15.2) L 02/27/22 01:22 Hct 36.0 % (35.5-45.6) 02/27/22 01:22 MCV 90 fl (84-94) 02/27/22 01:22 MCH 29 pg (28-32) 02/27/22 01:22 MCHC 32 % (32-34) 02/27/22 01:22 RDW 13.9 % (13.2-15.2) 02/27/22 01:22 Plt Count 277 K/mm3 (140-440) 02/27/22 01:22 Lymph % (Auto) Ski Lift Mechanic 02/27/22 01:22 Add Manual Diff Complete 02/27/22 01:22 Total Counted 100 02/27/22 01:22 Seg Neutrophils % Ski Lift Mechanic 02/27/22 01:22 Seg Neuts % (Manual) 65.0 % (40.0-70.0) 02/27/22 01:22 Band Neutrophils % 0 % 02/27/22 01:22 Lymphocytes % (Manual) 34.0 % (13.4-35.0) 02/27/22 01:22 Reactive Lymphs % (Man) 0 % 02/27/22 01:22 Monocytes % (Manual) 0 % (0.0-7.3) 02/27/22 01:22 Eosinophils % (Manual) 1.0 % (0.0-4.3) 02/27/22 01:22 Basophils % (Manual) 0 % (0.0-1.8) 02/27/22 01:22 Metamyelocytes % 0 % 02/27/22 01:22 Myelocytes % 0 % 02/27/22 01:22 Promyelocytes % 0 % 02/27/22 01:22 Blast Cells % 0 % 02/27/22 01:22 Nucleated RBC % Not Reportable 02/27/22 01:22 Seg Neutrophils # Man 3.9 K/mm3 (1.8-7.7) 02/27/22 01:22 Band Neutrophils # 0.0 K/mm3 02/27/22 01:22 Lymphocytes # (Manual) 2.0 K/mm3 (1.2-5.4) 02/27/22 01:22 Abs React Lymphs (Man) 0.0 K/mm3 02/27/22 01:22 Monocytes # (Manual) 0.0 K/mm3 (0.0-0.8) 02/27/22 01:22 Eosinophils # (Manual) 0.1 K/mm3 (0.0-0.4) 02/27/22 01:22 Basophils # (Manual) 0.0 K/mm3 (0.0-0.1) 02/27/22 01:22 Metamyelocytes # 0.0 K/mm3 02/27/22 01:22 Myelocytes # 0.0 K/mm3 02/27/22 01:22 Promyelocytes # 0.0 K/mm3 02/27/22 01:22 Blast Cells # 0.0 K/mm3 02/27/22 01:22 WBC Morphology Not Reportable 02/27/22 01:22 Hypersegmented Neuts Not Reportable 02/27/22 01:22 Hyposegmented Neuts Not Reportable 02/27/22 01:22 Hypogranular Neuts Not Reportable 02/27/22 01:22 Smudge Cells Not Reportable 02/27/22 01:22 Toxic Granulation Not Reportable 02/27/22 01:22 Toxic Vacuolation Not Reportable 02/27/22 01:22 Dohle Bodies Not Reportable 02/27/22 01:22 Pelger-Huet Anomaly Not Reportable 02/27/22 01:22 Ricky Rods Not Reportable 02/27/22 01:22 Platelet Estimate Consistent w auto 02/27/22 01:22 Clumped Platelets Not Reportable 02/27/22 01:22 Plt Clumps, EDTA Not Reportable 02/27/22 01:22 Large Platelets Not Reportable 02/27/22 01:22 Giant Platelets Not Reportable 02/27/22 01:22 Platelet Satelliting Not Reportable 02/27/22 01:22 Plt Morphology Comment Not Reportable 02/27/22 01:22 RBC Morphology Normal 02/27/22 01:22 Dimorphic RBCs Not Reportable 02/27/22 01:22 Polychromasia Not Reportable 02/27/22 01:22 Hypochromasia Not Reportable 02/27/22 01:22 Poikilocytosis Not Reportable 02/27/22 01:22 Anisocytosis Not Reportable 02/27/22 01:22 Microcytosis Not Reportable 02/27/22 01:22 Macrocytosis Not Reportable 02/27/22 01:22 Spherocytes Not Reportable 02/27/22 01:22 Pappenheimer Bodies Not Reportable 02/27/22 01:22 Sickle Cells Not Reportable 02/27/22 01:22 Target Cells Not Reportable 02/27/22 01:22 Tear Drop Cells Not Reportable 02/27/22 01:22 Ovalocytes Not Reportable 02/27/22 01:22 Helmet Cells Not Reportable 02/27/22 01:22 [place] Bodies Not Reportable 02/27/22 01:22 [place] Rings Not Reportable 02/27/22 01:22 Rice Cells Not Reportable 02/27/22 01:22 Bite Cells Not Reportable 02/27/22 01:22 Crenated Cell Not Reportable 02/27/22 01:22 Elliptocytes Not Reportable 02/27/22 01:22 Acanthocytes (Spur) Not Reportable 02/27/22 01:22 Rouleaux Not Reportable 02/27/22 01:22 Hemoglobin C Crystals Not Reportable 02/27/22 01:22 Schistocytes Not Reportable 02/27/22 01:22 Malaria parasites Not Reportable 02/27/22 01:22 Yosvany Bodies Not Reportable 02/27/22 01:22 Hem Pathologist Commnt No 02/27/22 01:22 PT 13.3 Sec. (12.2-14.9) 02/27/22 01:22 INR 0.92 (0.87-1.13) 02/27/22 01:22 APTT 31.2 Sec. (24.2-36.6) 02/27/22 01:22 Sodium 142 mmol/L (137-145) 02/27/22 01:22 Potassium 4.0 mmol/L (3.6-5.0) 02/27/22 01:22 Chloride 103.3 mmol/L (98-107) 02/27/22 01:22 Carbon Dioxide 28 mmol/L (22-30) 02/27/22 01:22 Anion Gap 15 mmol/L 02/27/22 01:22 BUN 21 mg/dL (9-20) H 02/27/22 01:22 Creatinine 2.1 mg/dL (0.8-1.3) H 02/27/22 01:22 Estimated GFR 39 ml/min 02/27/22 01:22 BUN/Creatinine Ratio 10 % 02/27/22 01:22 Glucose 231 mg/dL (75-100) H 02/27/22 01:22 POC Glucose 167 mg/dL (70-105) H 02/27/22 11:57 Calcium 8.2 mg/dL (8.4-10.2) L 02/27/22 01:22 Troponin T < 0.010 ng/mL (0.00-0.029) 02/27/22 07:34 NT-Pro-B Natriuret Pep 60185 pg/mL (0-900) H 02/27/22 01:22 Lipase 10 units/L (13-60) L 02/27/22 01:22 Wagner/IV: Voiding Method Urinal Active Medications - Current Medications Current Medications: Generic Name Dose Route Start Last Admin Trade Name Freq PRN Reason Stop Dose Admin Acetaminophen 650 mg 02/27/22 04:04 Acetaminophen 325 Mg Tab PO Q4H PRN Pain MILD(1-3)/Fever >100.5/DEE Albuterol 2.5 mg 02/27/22 04:04 Albuterol 2.5 Mg/3 Ml Nebu IH Q3HRT PRN Shortness Of Breath Albuterol/Ipratropium 1 ampul 02/27/22 08:00 02/27/22 08:25 Ipratropium/Albuterol Sulfate 3 Ml Ampul.Neb IH 1 ampul Q6HRT YENNI Administration Amlodipine Besylate 10 mg 02/27/22 10:00 02/27/22 09:14 Amlodipine 10 Mg Tab PO 10 mg QDAY YENNI Administration Aspirin 81 mg 02/27/22 10:00 02/27/22 09:14 Aspirin 81 Mg Tab Chew PO 81 mg QDAY YENNI Administration Atorvastatin Calcium 40 mg 02/27/22 22:00 Atorvastatin 40 Mg Tab PO QHS YENNI Carvedilol 6.25 mg 02/27/22 14:00 Carvedilol 6.25 Mg Tab PO BID YENNI Clonidine HCl 0.1 mg 02/27/22 10:00 02/27/22 09:14 Clonidine 0.1 Mg Tab PO 0.1 mg BID YENNI Administration Dextrose 50 ml 02/27/22 04:04 Dextrose 50% In Water (25gm) 50 Ml Syringe IV Q30MIN PRN Hypoglycemia Protocol Famotidine 10 mg 02/27/22 10:00 02/27/22 09:14 Famotidine 10 Mg Tab PO 10 mg BID YENNI Administration Furosemide 40 mg 02/27/22 06:00 02/27/22 06:59 Furosemide 40 Mg/4 Ml Inj IV 40 mg BID@0600,1800 YENNI Administration Heparin Sodium (Porcine) 5,000 unit 02/27/22 10:00 02/27/22 09:15 Heparin 5,000 Unit/1 Ml Vial SUB-Q 5,000 unit Q12HR YENNI Administration Hydralazine HCl 50 mg 02/27/22 06:00 02/27/22 13:39 Hydralazine 25 Mg Tab PO 50 mg Q8HR YENNI Administration Hydromorphone HCl 0.5 mg 02/27/22 04:04 02/27/22 09:44 Hydromorphone 1 Mg/1 Ml Inj IV 0.5 mg Q3H PRN Administration Pain , Severe (7-10) Insulin Human Lispro 0 unit 02/27/22 07:30 02/27/22 13:40 Insulin Lispro 100 Unit/Ml SUB-Q 2 unit ACHS YENNI Administration Protocol Morphine Sulfate 2 mg 02/27/22 04:04 Morphine 2 Mg/1 Ml Inj IV Q4H PRN Pain, Moderate (4-6) Ondansetron HCl 4 mg 02/27/22 04:04 02/27/22 09:44 Ondansetron 4 Mg/2 Ml Inj IV 4 mg Q8H PRN Administration Nausea And Vomiting Sertraline HCl 75 mg 02/27/22 10:00 02/27/22 09:14 Sertraline 50 Mg Tab PO 75 mg QAM YENNI Administration Sodium Chloride 10 ml 02/27/22 10:00 02/27/22 09:16 Sodium Chloride 0.9% 10 Ml Flush Syringe IV 10 ml BID YENNI Administration Sodium Chloride 10 ml 02/27/22 04:04 Sodium Chloride 0.9% 10 Ml Flush Syringe IV PRN PRN LINE FLUSH Trazodone HCl 50 mg 02/27/22 22:00 Trazodone 50 Mg Tab PO QHS YENNI
[2022-02-27] MEDS: carvediloL 6.25 MG TAB PO SCH ×2 (14:28→22:19)
[2022-02-27] MEDS ORDERED: NON-FORMULARY EACH (Simvastatin (Nf) 20 MG Tablet) PO SCH (22:00)
[2022-02-27] MEDS ORDERED: PRAVASTATIN 40 MG TAB PO SCH (22:00)
[2022-02-27] MEDS: traZODone 50 MG TAB PO SCH (22:19)
[2022-02-28] MEDS: INSULIN LISPRO 100 UNIT/ML SUB-Q SCH ×5 (00:29→21:00)
[2022-02-28] MEDS: hydrALAZINE 25 MG TAB PO SCH ×3 (05:44→22:00)
[2022-02-28] MEDS: FUROSEMIDE 40 MG/4 ML INJ IV SCH (05:45)
[2022-02-28] MEDS: ONDANSETRON 4 MG/2 ML INJ IV PRN (05:51)
[2022-02-28 06:14] LABS: Hematocrit 32.8 % (35.5-45.6); Hemoglobin 10.7 gm/dl (11.8-15.2); Mean Corpuscular HGB Conc 33 % (32-34); Mean Corpuscular Volume 89 fl (84-94); Platelet Count 239 K/mm3 (140-440); Red Blood Count 3.68 M/mm3 (3.65-5.03); Red Cell Distribution Width 13.6 % (13.2-15.2)
[2022-02-28 07:42] LABS: Basophils % (Manual) 0 % (0.0-1.8); Eosinophils % (Manual) 0 % (0.0-4.3); Total Cells Counted 100
[2022-02-28 07:46] LABS: Platelet Estimate Consistent w Auto; RBC Morphology Normal
[2022-02-28] MEDS: IPRATROPIUM/ALBUTEROL SULFATE 3 ML AMPUL.NEB IH SCH ×3 (09:26→21:13)
[2022-02-28] MEDS: HEPARIN 5,000 UNIT/1 ML VIAL SUB-Q SCH ×2 (09:57→21:25)
[2022-02-28] MEDS: SERTRALINE 50 MG TAB PO SCH (10:02)
[2022-02-28] MEDS: ASPIRIN 81 MG TAB CHEW PO SCH (10:03)
[2022-02-28] MEDS: carvediloL 6.25 MG TAB PO SCH ×2 (10:04→21:21)
[2022-02-28] MEDS: amLODIPine 10 MG TAB PO SCH (10:04)
[2022-02-28] MEDS: FAMOTIDINE 10 MG TAB PO SCH ×2 (10:05→22:01)
[2022-02-28] MEDS: cloNIDine 0.1 MG TAB PO SCH ×2 (10:05→22:01)
--- NOTE | 2022-02-28 12:03 | Progress Note ---
Assessment and Plan - Patient Problems (1) Acute pulmonary edema Current Visit: Yes Status: Acute Plan to address problem: 56-year-old man admitted with uncontrolled hypertension, systolic blood pressure greater than 200, associated with acute pulmonary edema. Echocardiogram shows left ventricular systolic ejection fraction moderately impaired, 35 to 40% with moderate concentric left ventricular per trophy. He has history of heart failure and hypertension for which he is admittedly noncompliant with recommended medical therapy and dietary salt restriction. In addition to resumption of guideline directed medical therapy and optimal blood pressure control, most important intervention at this time is social media assistant consultation to provide options for outpatient management with regards to procurement of his medications and optimal outpatient cardiac and medical follow-up. Subjective Date of service: 02/28/22 Principal diagnosis: CHF Interval history: The patient is a 56-year-old man admitted to this hospital yesterday with uncontrolled hypertension and heart failure decompensation. We are asked to assume further cardiac care following initial consultation by another agricultural aircraft pilot. His medical history is notable for chronic hypertension and chronic systolic heart failure. He admits to noncompliance with outpatient medical therapy, and noncompliance with recommended dietary salt restrictions. He was in this emergency room initially 3 days ago with chest tightness and shortness of breath, following which he was discharged from the emergency room. 2 days later, he states that he was called to represent in the emergency room because his chest x-ray from his earlier visit showed pulmonary edema. On the second presentation, his blood pressure was also severely uncontrolled over 200 systolic. He was then admitted for further management of uncontrolled hypertension and exacerbation of heart failure. EKG is a sinus rhythm, with nonspecific T wave abnormality in the anterolateral leads. The anterolateral T wave changes are not old, present on his previous ECGs from 2020. A chest x-ray was a mild to moderate cardiomegaly with interstitial edema. An echocardiogram done on this presentation shows a moderate severity cardiomyopathy with ejection fraction 35 to 40%, moderate, concentric left ventricular hypertrophy. Objective Vital Signs Temp Pulse Pulse Pulse Pulse Resp Resp 02/28/22 10:05 75 02/28/22 10:04 75 02/28/22 09:28 02/28/22 09:26 82 82 18 02/28/22 07:49 99.4 F 75 16 02/28/22 03:36 98.9 F 79 16 02/28/22 00:16 20 02/27/22 23:45 98.6 F 77 16 02/27/22 20:48 02/27/22 20:46 93 H 82 16 02/27/22 20:08 98.4 F 66 16 02/27/22 16:15 81 20 02/27/22 16:13 98.2 F 73 18 02/27/22 14:33 02/27/22 14:28 82 02/27/22 13:39 83 02/27/22 12:18 80 Resp BP Pulse Ox 02/28/22 10:05 121/70 02/28/22 10:04 121/70 02/28/22 09:28 95 02/28/22 09:26 18 02/28/22 07:49 121/70 85 02/28/22 03:36 140/74 87 02/28/22 00:16 94 02/27/22 23:45 137/79 84 02/27/22 20:48 94 02/27/22 20:46 16 02/27/22 20:08 143/88 89 02/27/22 16:15 94 02/27/22 16:13 139/86 92 02/27/22 14:33 96 02/27/22 14:28 02/27/22 13:39 02/27/22 12:18 - Physical Examination General: No Apparent Distress HEENT: Positive: PERRL Neck: Positive: neck supple Cardiac: Positive: Reg Rate and Rhythm Lungs: Positive: Decreased Breath Sounds Neuro: Positive: Grossly Intact Abdomen: Positive: Soft, Active Bowel Sounds Skin: Negative: Rash Extremities: Present: edema (Minimal), warm - Labs and Meds CBC 02/28/22 Range/Units 05:47 WBC 6.5 (4.5-11.0) K/mm3 RBC 3.68 (3.65-5.03) M/mm3 Hgb 10.7 L (11.8-15.2) gm/dl Hct 32.8 L (35.5-45.6) % Plt Count 239 (140-440) K/mm3 Comprehensive Metabolic Panel 02/28/22 Range/Units 05:47 Sodium 139 (137-145) mmol/L Potassium 4.3 (3.6-5.0) mmol/L Chloride 101.0 (98-107) mmol/L Carbon Dioxide 26 (22-30) mmol/L BUN 29 H (9-20) mg/dL Creatinine 2.5 H (0.8-1.3) mg/dL Glucose 179 H (75-100) mg/dL Calcium 8.0 L (8.4-10.2) mg/dL
[2022-02-28] MEDS: ISOSORBIDE DINITRATE 20 MG TAB PO SCH ×2 (14:11→22:01)
--- NOTE | 2022-02-28 15:36 | Vascular Lab Report ---
DUPLEX DOPPLER LOWER EXTREMITY VEINS, LEFT INDICATION / CLINICAL INFORMATION: Evaluate for possible DVT. TECHNIQUE: Duplex doppler imaging was performed through the veins of the left lower extremity using v enous compression and other maneuvers. COMPARISON: None available. FINDINGS: LEFT COMMON FEMORAL VEIN: Negative. LEFT FEMORAL VEIN: Negative. LEFT POPLITEAL VEIN: Negative. LEFT CALF VEINS: Negative. ADDITIONAL FINDINGS: Moderate left knee effusion is noted. IMPRESSION: 1. No sonographic evidence for DVT in the left lower extremity. 2. Left knee effusion. Scribed by: Roro Odonnell RDMS, RICHIE, BLUE Scribed: 02/28/2022 1:50 PM I have reviewed the images, agree with this report, and edited this report as needed. Signer Name: Terry Ly MD Signed: 02/28/2022 3:32 PM Workstation Name: [id number]
[2022-02-28] MEDS: traZODone 50 MG TAB PO SCH (22:01)
[2022-03-01] MEDS: ISOSORBIDE DINITRATE 20 MG TAB PO SCH ×3 (05:25→21:04)
[2022-03-01] MEDS: hydrALAZINE 25 MG TAB PO SCH ×3 (05:26→21:04)
[2022-03-01 06:50] LABS: Calcium 7.6 mg/dL (8.4-10.2)
[2022-03-01] MEDS: INSULIN LISPRO 100 UNIT/ML SUB-Q SCH ×4 (08:16→22:00)
[2022-03-01] MEDS: IPRATROPIUM/ALBUTEROL SULFATE 3 ML AMPUL.NEB IH SCH ×3 (08:56→20:37)
[2022-03-01] MEDS: SERTRALINE 50 MG TAB PO SCH (09:57)
[2022-03-01] MEDS: ASPIRIN 81 MG TAB CHEW PO SCH (09:57)
[2022-03-01] MEDS: cloNIDine 0.1 MG TAB PO SCH ×2 (09:57→21:04)
[2022-03-01] MEDS: FAMOTIDINE 10 MG TAB PO SCH ×2 (09:57→21:04)
[2022-03-01] MEDS: FUROSEMIDE 40 MG TAB PO SCH (09:57)
[2022-03-01] MEDS: amLODIPine 10 MG TAB PO SCH (09:57)
[2022-03-01] MEDS: HEPARIN 5,000 UNIT/1 ML VIAL SUB-Q SCH ×2 (10:01→21:04)
[2022-03-01] MEDS: carvediloL 6.25 MG TAB PO SCH ×2 (10:02→21:04)
[2022-03-01] MEDS ORDERED: oxyCODONE /ACETAMINOPHEN 5-325MG TAB PO PRN (11:00)
--- NOTE | 2022-03-01 11:50 | Consultation ---
History of Present Illness - Reason for Consult Consult date: 03/01/22 acute renal failure, chronic renal failure - History of Present Illness The patient is a 56 YO male with history of Hypertension, DM-2, Diabetic retinopathy and CKD who was brought to [facility] ED 02/27/22 with increasing bilateral leg swelling and shortness of breath. Patient is a poor historian. The patient admits that he has been out of his medications for several weeks and currently he is not following with any physician. Initially when he presented to the emergency department he was complaining of chest pain which has resolved. His initial BP was 212/123 mmHg. Chest x-ray showed pulmonary edema and pleural effusion. Labs notable for Creatinine 3.5 and BUN 41. Nephrology consulted for further evaluation and treatment of NICKY. Past History Past Medical History: diabetes, hypertension, liver disease, PVD, renal failure, seizures Past Surgical History: No surgical history Social history: no significant social history Family history: hypertension Medications and Allergies Allergies Allergy/AdvReac Type Severity Reaction Status Date / Time Penicillins Allergy Hives Verified 09/20/17 16:18 Home Medications Medication Instructions Recorded Confirmed Last Taken Type Aspirin [Aspirin BABY CHEW TAB] 81 mg PO QDAY #30 tab.chew 03/20/14 03/01/22 04/18/21 Rx Insulin NPH/Regular [NovoLIN 70/30] 10 units SQ QAM #30 dose 03/20/14 03/01/22 04/06/21 Rx Sertraline [Zoloft] 75 mg PO QAM #30 tablet 03/20/14 03/01/22 04/06/21 Rx Simvastatin (Nf) [Zocor TAB] 20 mg PO QHS #30 tablet 03/20/14 03/01/22 04/06/21 Rx traZODone [Desyrel] 50 mg PO QHS #30 tablet 02/23/21 03/01/22 04/06/21 Rx cloNIDine [Catapres] 0.1 mg PO BID #60 tablet 05/19/21 03/01/22 Unknown Rx hydrALAZINE [Apresoline TAB] 50 mg PO Q8HR #180 tablet 05/19/21 03/01/22 Unknown Rx amLODIPine 10 mg PO QDAY #90 tablet 02/24/22 03/01/22 Unknown Rx Active Meds: Active Medications Acetaminophen (Acetaminophen 325 Mg Tab) 650 mg PO Q4H PRN PRN Reason: Pain MILD(1-3)/Fever >100.5/DEE Albuterol (Albuterol 2.5 Mg/3 Ml Nebu) 2.5 mg IH Q3HRT PRN PRN Reason: Shortness Of Breath Albuterol/Ipratropium (Ipratropium/Albuterol Sulfate 3 Ml Ampul.Neb) 1 ampul IH TIDRT [facility] Last Admin: 03/01/22 08:56 Dose: 1 ampul Amlodipine Besylate (Amlodipine 10 Mg Tab) 10 mg PO QDAY [facility] Last Admin: 03/01/22 09:57 Dose: 10 mg Aspirin (Aspirin 81 Mg Tab Chew) 81 mg PO QDAY [facility] Last Admin: 03/01/22 09:57 Dose: 81 mg Atorvastatin Calcium (Atorvastatin 40 Mg Tab) 40 mg PO QHS [facility] Last Admin: 02/28/22 22:01 Dose: 40 mg Carvedilol (Carvedilol 6.25 Mg Tab) 6.25 mg PO BID [facility] Last Admin: 03/01/22 10:02 Dose: 6.25 mg Clonidine HCl (Clonidine 0.1 Mg Tab) 0.1 mg PO BID [facility] Last Admin: 03/01/22 09:57 Dose: 0.1 mg Dextrose (Dextrose 50% In Water (25gm) 50 Ml Syringe) 50 ml IV Q30MIN PRN; Protocol PRN Reason: Hypoglycemia Famotidine (Famotidine 10 Mg Tab) 10 mg PO BID [facility] Last Admin: 03/01/22 09:57 Dose: 10 mg Furosemide (Furosemide 40 Mg Tab) 40 mg PO QDAY [facility] Last Admin: 03/01/22 09:57 Dose: 40 mg Heparin Sodium (Porcine) (Heparin 5,000 Unit/1 Ml Vial) 5,000 unit SUB-Q Q12HR [facility] Last Admin: 03/01/22 10:01 Dose: 5,000 unit Hydralazine HCl (Hydralazine 25 Mg Tab) 50 mg PO Q8HR [facility] Last Admin: 03/01/22 05:26 Dose: 50 mg Hydromorphone HCl (Hydromorphone 1 Mg/1 Ml Inj) 0.5 mg IV Q3H PRN PRN Reason: Pain , Severe (7-10) Last Admin: 02/27/22 09:44 Dose: 0.5 mg Insulin Human Lispro (Insulin Lispro 100 Unit/Ml) 0 unit SUB-Q ACHS [facility]; Protocol Last Admin: 03/01/22 08:16 Dose: Not Given Isosorbide Dinitrate (Isosorbide Dinitrate 20 Mg Tab) 20 mg PO Q8HR [facility] Last Admin: 03/01/22 05:25 Dose: 20 mg Morphine Sulfate (Morphine 2 Mg/1 Ml Inj) 2 mg IV Q4H PRN PRN Reason: Pain, Moderate (4-6) Last Admin: 02/27/22 18:16 Dose: 2 mg Ondansetron HCl (Ondansetron 4 Mg/2 Ml Inj) 4 mg IV Q8H PRN PRN Reason: Nausea And Vomiting Last Admin: 02/28/22 05:51 Dose: 4 mg Oxycodone/Acetaminophen (Oxycodone /Acetaminophen 5-325mg Tab) 1 tab PO Q6H PRN PRN Reason: Pain, Moderate (4-6) Sertraline HCl (Sertraline 50 Mg Tab) 75 mg PO QAM [facility] Last Admin: 03/01/22 09:57 Dose: 75 mg Sodium Chloride (Sodium Chloride 0.9% 10 Ml Flush Syringe) 10 ml IV BID [facility] Last Admin: 03/01/22 10:04 Dose: 10 ml Sodium Chloride (Sodium Chloride 0.9% 10 Ml Flush Syringe) 10 ml IV PRN PRN PRN Reason: LINE FLUSH Trazodone HCl (Trazodone 50 Mg Tab) 50 mg PO QHS [facility] Last Admin: 02/28/22 22:01 Dose: 50 mg Review of Systems All systems: negative Exam - Vital Signs Vital signs: Vital Signs Temp Pulse Resp BP Pulse Ox 98.1 F 84 16 212/123 95 02/26/22 22:44 02/26/22 22:44 02/26/22 22:44 02/26/22 22:44 02/26/22 22:44 Results - Lab Results 02/28/22 05:47 03/02/22 06:07 Most recent lab results Calcium 7.6 mg/dL (8.4-10.2) L 03/01/22 05:51 Assessment and Plan 1. Acute kidney injury: Vasomotor NICKY superimposed on CKD in the setting of decompensated CHF. Cardiorenal syndrome. Urine studies and Renal ordered. Monitor renal function. Creatinine level increasing. Renal prognosis is guarded. Avoid nephrotoxic agents. Meds dosage based on GFR. 2. FEN: Volume overload, diuretics, monitor. Monitor lytes and volume status. 3. Decompensated HFrEF, POA: EF 35-40%. Coreg and Hydralazine. Followed by Cards. Monitor. 4. Severe pulmonary hypertension. Continue to monitor. 5. 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 Monitor. 6. Uncontrolled Hypertension: Current BP is better. Monitor. 7. Normocytic anemia, POA: Monitor. 8. Medical noncompliance. Subjective: Patient was seen and examined at the bedside. Examination: General appearance: well-developed, appears stated age, no distress, obese HEENT: atraumatic Neck: trachea midline, JVD Respiratory: ctab Heart: S1S2, regular, no murmur Abdomen: soft, bowel sounds heard, NT Integumentary: no obvious rash Neurologic: AO, blindness, able to move extremities Ext: 1+ LE edema noted
--- NOTE | 2022-03-01 12:58 | Progress Note ---
Assessment and Plan - Patient Problems (1) Acute pulmonary edema Current Visit: Yes Status: Acute Plan to address problem: 56-year-old man admitted with uncontrolled hypertension, systolic blood pressure greater than 200, associated with acute pulmonary edema. Echocardiogram shows left ventricular systolic ejection fraction moderately impaired, 35 to 40% with moderate concentric left ventricular per trophy. He has history of heart failure and hypertension for which he is admittedly noncompliant with recommended medical therapy and dietary salt restriction. In addition to resumption of guideline directed medical therapy and optimal blood pressure control, most important intervention at this time is social service worker consultation to provide options for outpatient management with regards to procurement of his medications and optimal outpatient cardiac and medical follow-up. Subjective Date of service: 03/01/22 Principal diagnosis: CHF Interval history: Patient is comfortable, no cardiac complaints, no new cardiac events reported. On alarm security or surveillance monitor, he has a sinus rhythm at 68. Objective Vital Signs Temp Pulse Pulse Pulse Pulse Resp Resp 03/01/22 11:40 98.1 F 70 16 03/01/22 10:00 69 03/01/22 08:15 72 69 18 03/01/22 07:31 98.5 F 69 16 03/01/22 05:26 69 03/01/22 05:25 69 03/01/22 03:20 98.7 F 69 16 02/28/22 22:50 98.6 F 71 16 02/28/22 21:21 68 02/28/22 21:14 02/28/22 21:13 89 85 18 02/28/22 18:53 98.2 F 65 16 02/28/22 16:25 97.6 F 63 16 Resp BP Pulse Ox 03/01/22 11:40 135/84 93 03/01/22 10:00 95 03/01/22 08:15 18 96 03/01/22 07:31 127/76 95 03/01/22 05:26 120/74 03/01/22 05:25 120/74 03/01/22 03:20 120/74 97 02/28/22 22:50 113/66 94 02/28/22 21:21 135/83 02/28/22 21:14 96 02/28/22 21:13 17 02/28/22 18:53 115/71 95 02/28/22 16:25 103/62 96 - Physical Examination General: No Apparent Distress HEENT: Positive: PERRL Neck: Positive: neck supple Cardiac: Positive: Reg Rate and Rhythm Lungs: Positive: Decreased Breath Sounds Neuro: Positive: Grossly Intact Abdomen: Positive: Soft, Active Bowel Sounds Skin: Negative: Rash Extremities: Present: edema (Minimal), warm - Labs and Meds Comprehensive Metabolic Panel 03/01/22 Range/Units 05:51 Sodium 138 (137-145) mmol/L Potassium 4.0 (3.6-5.0) mmol/L Chloride 101.0 (98-107) mmol/L Carbon Dioxide 27 (22-30) mmol/L BUN 41 H (9-20) mg/dL Creatinine 3.5 H (0.8-1.3) mg/dL Glucose 130 H (75-100) mg/dL Calcium 7.6 L (8.4-10.2) mg/dL
--- NOTE | 2022-03-01 13:36 | Progress Note ---
Assessment and Plan Assessment and plan: #Acute on chronic systolic heart failure #Severe pulmonary hypertension secondary to left heart failure - Continue CHF exacerbation protocol: Telemetry, Strict I/O, monitor urine outp ut every shift, daily weights, afterload reduction, low-sodium diet, and fluid restriction of approximately 1.5 mL/day, IV Lasix 40 mg daily (holding in the setting of NICKY worsening) - Supplemental oxygen: None - ProBNP on admission: 051 - Cardiology consulted; appreciate recs - TTE revealing EF 35-40% with mildly dilated LV, moderately decreased LV systolic function, moderate concentric LVH, mildly dilated RV, mildly hypokinetic RV, moderately dilated LA, mildly dilated RA, RVSP 85-90 mmHg.. - BLE Doppler negative for DVT. Negative troponin x2. - continue supplemental O2, will wean as tolerated - Cardiology following, assistance appreciated #NICKY on CKD stage III #Cardiorenal syndrome - Creatinine 2.1--> 2.5 -> 3.5 - Likely secondary to heart failure exacerbation + worsened with IV diuresis - Holding IV Lasix - Renally dose meds and avoid nephrotoxic drugs - Nephrology consulted, assistance appreciated #Insulin dependent type II diabetes mellitus, controlled - hemoglobin A1c: Unknown - home regimen: NPH 70/30 10 units daily - current regimen: Moderate SSI - blood glucose goal 140-180 while inpatient - continue to monitor #Hypertension - home medications: Amlodipine 10 mg daily, clonidine 0.1 mg twice daily, p.o. hydralazine 50 mg every 8 hours - current medications: Amlodipine 10 mg daily, Coreg 6.25 mg twice daily, clonidine 0.1 mg twice daily, p.o. hydralazine 50 mg every 8 hours - SBP goal <160 and DBP goal <90 while inpatient - continue to monitor #History of panic attacks - continue home meds #Advanced care planning -Disease education conducted, care plan discussed, diagnoses discussed, prognosis discussed, and patient acknowledges understanding with care plan -Time: +30 min History Interval history: No acute events overnight. Patient denies worsening shortness of breath, chest pain or palpitations. No complaints at this time. Hospitalist Physical - Physical exam Narrative exam: GENERAL: Well-developed well-nourished. In no acute distress. HEENT: NC in place @2LPM CHEST/LUNGS: mild expiratory crackles HEART/CARDIOVASCULAR: RRR. No murmur, rubs or gallops appreciated. ABDOMEN: +BS. NT/ND. SKIN: No rashes noted. NEURO: No focal motor deficit. Follows all commands and is ambulatory. MUSCULOSKELETAL: No joint effusion EXTREMITIES: No cyanosis, clubbing. 1+BLE edema. PSYCH: Cooperative. - Constitutional Vitals: Temp Pulse Resp BP Pulse Ox 98.1 F 70 16 135/84 93 03/01/22 11:40 03/01/22 11:40 03/01/22 11:40 03/01/22 11:40 03/01/22 11:40 General appearance: Present: no acute distress, well-nourished HEART Score - HEART Score Troponin: Troponin T < 0.010 ng/mL (0.00-0.029) 02/27/22 07:34 Results - Labs CBC & Chem 7: 02/28/22 05:47 03/01/22 05:51 Labs: Laboratory Last Values WBC 6.5 K/mm3 (4.5-11.0) 02/28/22 05:47 RBC 3.68 M/mm3 (3.65-5.03) 02/28/22 05:47 Hgb 10.7 gm/dl (11.8-15.2) L 02/28/22 05:47 Hct 32.8 % (35.5-45.6) L 02/28/22 05:47 MCV 89 fl (84-94) 02/28/22 05:47 MCH 29 pg (28-32) 02/28/22 05:47 MCHC 33 % (32-34) 02/28/22 05:47 RDW 13.6 % (13.2-15.2) 02/28/22 05:47 Plt Count 239 K/mm3 (140-440) 02/28/22 05:47 Lymph % (Auto) Clinical Program Director 02/27/22 01:22 Add Manual Diff Complete 02/28/22 05:47 Total Counted 100 02/28/22 05:47 Seg Neutrophils % Clinical Program Director 02/27/22 01:22 Seg Neuts % (Manual) 76.0 % (40.0-70.0) H 02/28/22 05:47 Band Neutrophils % 0 % 02/28/22 05:47 Lymphocytes % (Manual) 19.0 % (13.4-35.0) 02/28/22 05:47 Reactive Lymphs % (Man) 0 % 02/28/22 05:47 Monocytes % (Manual) 4.0 % (0.0-7.3) 02/28/22 05:47 Eosinophils % (Manual) 0 % (0.0-4.3) 02/28/22 05:47 Basophils % (Manual) 0 % (0.0-1.8) 02/28/22 05:47 Metamyelocytes % 1.0 % 02/28/22 05:47 Myelocytes % 0 % 02/28/22 05:47 Promyelocytes % 0 % 02/28/22 05:47 Blast Cells % 0 % 02/28/22 05:47 Nucleated RBC % Not Reportable 02/28/22 05:47 Seg Neutrophils # Man 4.9 K/mm3 (1.8-7.7) 02/28/22 05:47 Band Neutrophils # 0.0 K/mm3 02/28/22 05:47 Lymphocytes # (Manual) 1.2 K/mm3 (1.2-5.4) 02/28/22 05:47 Abs React Lymphs (Man) 0.0 K/mm3 02/28/22 05:47 Monocytes # (Manual) 0.3 K/mm3 (0.0-0.8) 02/28/22 05:47 Eosinophils # (Manual) 0.0 K/mm3 (0.0-0.4) 02/28/22 05:47 Basophils # (Manual) 0.0 K/mm3 (0.0-0.1) 02/28/22 05:47 Metamyelocytes # 0.1 K/mm3 02/28/22 05:47 Myelocytes # 0.0 K/mm3 02/28/22 05:47 Promyelocytes # 0.0 K/mm3 02/28/22 05:47 Blast Cells # 0.0 K/mm3 02/28/22 05:47 WBC Morphology Not Reportable 02/28/22 05:47 Hypersegmented Neuts Not Reportable 02/28/22 05:47 Hyposegmented Neuts Not Reportable 02/28/22 05:47 Hypogranular Neuts Not Reportable 02/28/22 05:47 Smudge Cells Not Reportable 02/28/22 05:47 Toxic Granulation Not Reportable 02/28/22 05:47 Toxic Vacuolation Not Reportable 02/28/22 05:47 Dohle Bodies Not Reportable 02/28/22 05:47 Pelger-Huet Anomaly Not Reportable 02/28/22 05:47 Ricky Rods Not Reportable 02/28/22 05:47 Platelet Estimate Consistent w auto 02/28/22 05:47 Clumped Platelets Not Reportable 02/28/22 05:47 Plt Clumps, EDTA Not Reportable 02/28/22 05:47 Large Platelets Not Reportable 02/28/22 05:47 Giant Platelets Not Reportable 02/28/22 05:47 Platelet Satelliting Not Reportable 02/28/22 05:47 Plt Morphology Comment Not Reportable 02/28/22 05:47 RBC Morphology Normal 02/28/22 05:47 Dimorphic RBCs Not Reportable 02/28/22 05:47 Polychromasia Not Reportable 02/28/22 05:47 Hypochromasia Not Reportable 02/28/22 05:47 Poikilocytosis Not Reportable 02/28/22 05:47 Anisocytosis Not Reportable 02/28/22 05:47 Microcytosis Not Reportable 02/28/22 05:47 Macrocytosis Not Reportable 02/28/22 05:47 Spherocytes Not Reportable 02/28/22 05:47 Pappenheimer Bodies Not Reportable 02/28/22 05:47 Sickle Cells Not Reportable 02/28/22 05:47 Target Cells Not Reportable 02/28/22 05:47 Tear Drop Cells Not Reportable 02/28/22 05:47 Ovalocytes Not Reportable 02/28/22 05:47 Helmet Cells Not Reportable 02/28/22 05:47 [place] Bodies Not Reportable 02/28/22 05:47 [place] Rings Not Reportable 02/28/22 05:47 Narcisa Cells Not Reportable 02/28/22 05:47 Bite Cells Not Reportable 02/28/22 05:47 Crenated Cell Not Reportable 02/28/22 05:47 Elliptocytes Not Reportable 02/28/22 05:47 Acanthocytes (Spur) Not Reportable 02/28/22 05:47 Rouleaux Not Reportable 02/28/22 05:47 Hemoglobin C Crystals Not Reportable 02/28/22 05:47 Schistocytes Not Reportable 02/28/22 05:47 Malaria parasites Not Reportable 02/28/22 05:47 Yosvany Bodies Not Reportable 02/28/22 05:47 Hem Pathologist Commnt No 02/28/22 05:47 PT 13.3 Sec. (12.2-14.9) 02/27/22 01:22 INR 0.92 (0.87-1.13) 02/27/22 01:22 APTT 31.2 Sec. (24.2-36.6) 02/27/22 01:22 Sodium 138 mmol/L (137-145) 03/01/22 05:51 Potassium 4.0 mmol/L (3.6-5.0) 03/01/22 05:51 Chloride 101.0 mmol/L (98-107) 03/01/22 05:51 Carbon Dioxide 27 mmol/L (22-30) 03/01/22 05:51 Anion Gap 14 mmol/L 03/01/22 05:51 BUN 41 mg/dL (9-20) H 03/01/22 05:51 Creatinine 3.5 mg/dL (0.8-1.3) H 03/01/22 05:51 Estimated GFR 22 ml/min 03/01/22 05:51 BUN/Creatinine Ratio 12 % 03/01/22 05:51 Glucose 130 mg/dL (75-100) H 03/01/22 05:51 POC Glucose 110 mg/dL (70-105) H 03/01/22 07:18 Calcium 7.6 mg/dL (8.4-10.2) L 03/01/22 05:51 Troponin T < 0.010 ng/mL (0.00-0.029) 02/27/22 07:34 NT-Pro-B Natriuret Pep 22319 pg/mL (0-900) H 02/27/22 01:22 Lipase 10 units/L (13-60) L 02/27/22 01:22 Wagner/IV: Voiding Method Urinal Active Medications - Current Medications Current Medications: Generic Name Dose Route Start Last Admin Trade Name Freq PRN Reason Stop Dose Admin Acetaminophen 650 mg 02/27/22 04:04 Acetaminophen 325 Mg Tab PO Q4H PRN Pain MILD(1-3)/Fever >100.5/DEE Albuterol 2.5 mg 02/27/22 04:04 Albuterol 2.5 Mg/3 Ml Nebu IH Q3HRT PRN Shortness Of Breath Albuterol/Ipratropium 1 ampul 02/27/22 20:00 03/01/22 08:56 Ipratropium/Albuterol Sulfate 3 Ml Ampul.Neb IH 1 ampul TIDRT YENNI Administration Amlodipine Besylate 10 mg 02/27/22 10:00 03/01/22 09:57 Amlodipine 10 Mg Tab PO 10 mg QDAY YENNI Administration Aspirin 81 mg 02/27/22 10:00 03/01/22 09:57 Aspirin 81 Mg Tab Chew PO 81 mg QDAY YENNI Administration Atorvastatin Calcium 40 mg 02/27/22 22:00 02/28/22 22:01 Atorvastatin 40 Mg Tab PO 40 mg QHS YENNI Administration Carvedilol 6.25 mg 02/27/22 14:00 03/01/22 10:02 Carvedilol 6.25 Mg Tab PO 6.25 mg BID YENNI Administration Clonidine HCl 0.1 mg 02/27/22 10:00 03/01/22 09:57 Clonidine 0.1 Mg Tab PO 0.1 mg BID YENNI Administration Dextrose 50 ml 02/27/22 04:04 Dextrose 50% In Water (25gm) 50 Ml Syringe IV Q30MIN PRN Hypoglycemia Protocol Famotidine 10 mg 02/27/22 10:00 03/01/22 09:57 Famotidine 10 Mg Tab PO 10 mg BID YENNI Administration Furosemide 40 mg 03/01/22 10:00 03/01/22 09:57 Furosemide 40 Mg Tab PO 40 mg QDAY YENNI Administration Heparin Sodium (Porcine) 5,000 unit 02/27/22 10:00 03/01/22 10:01 Heparin 5,000 Unit/1 Ml Vial SUB-Q 5,000 unit Q12HR YENNI Administration Hydralazine HCl 50 mg 02/27/22 06:00 03/01/22 05:26 Hydralazine 25 Mg Tab PO 50 mg Q8HR YENNI Administration Hydromorphone HCl 0.5 mg 02/27/22 04:04 02/27/22 09:44 Hydromorphone 1 Mg/1 Ml Inj IV 0.5 mg Q3H PRN Administration Pain , Severe (7-10) Insulin Human Lispro 0 unit 02/27/22 07:30 03/01/22 08:16 Insulin Lispro 100 Unit/Ml SUB-Q Not Given ACHS [facility] Protocol Isosorbide Dinitrate 20 mg 02/28/22 14:00 03/01/22 05:25 Isosorbide Dinitrate 20 Mg Tab PO 20 mg Q8HR YENNI Administration Morphine Sulfate 2 mg 02/27/22 04:04 02/27/22 18:16 Morphine 2 Mg/1 Ml Inj IV 2 mg Q4H PRN Administration Pain, Moderate (4-6) Ondansetron HCl 4 mg 02/27/22 04:04 02/28/22 05:51 Ondansetron 4 Mg/2 Ml Inj IV 4 mg Q8H PRN Administration Nausea And Vomiting Oxycodone/Acetaminophen 1 tab 03/01/22 11:00 Oxycodone /Acetaminophen 5-325mg Tab PO Q6H PRN Pain, Moderate (4-6) Sertraline HCl 75 mg 02/27/22 10:00 03/01/22 09:57 Sertraline 50 Mg Tab PO 75 mg QAM YENNI Administration Sodium Chloride 10 ml 02/27/22 10:00 03/01/22 10:04 Sodium Chloride 0.9% 10 Ml Flush Syringe IV 10 ml BID YENNI Administration Sodium Chloride 10 ml 02/27/22 04:04 Sodium Chloride 0.9% 10 Ml Flush Syringe IV PRN PRN LINE FLUSH Trazodone HCl 50 mg 02/27/22 22:00 02/28/22 22:01 Trazodone 50 Mg Tab PO 50 mg QHS YENNI Administration Nutrition/Malnutrition Assess - Dietary Evaluation Nutrition/Malnutrition Findings: Nutrition Notes Start: 02/27/22 15: 05 Freq: Status: Active Protocol: Document 02/27/22 15:05 BUCKY (Rec: 02/27/22 15:18 BUCKY [id number]) Nutrition Notes Need for Assessment generated from: MD Order,Education Initial or Follow up Brief Note Current Diagnosis CKD(stage I-IV),Diabetes, Hypertension Other Pertinent Diagnosis CHF, Pulmonary Edema, Pleural Effusion, Liver Disease, PVD, Seizures. Current Diet Cardiac/Consistent Carbohydrates Diet (since B ). 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 Weight Status Overweight Subjective/Other Information RD consult for nutrition education. No reports available on Pt's PO intake of meals at the time , will assess at F/U. Pt is on Room Air, O2 saturation @ 94%, according to Physical Assessment history notes. Pt still in critical condition , not a candidate for Nutrition Education at the time, will assess feasibility on F/U. Percent of energy/protein needs met: Prescribed Cardiac/Consistent Carbohydrates Diet provides for energy/protein needs (1, 977 Kcal/86 g) during LOS. Nutrition Intervention Follow-Up By: 03/04/22 Additional Comments Nutrition education will be provided on F/U, if feasible. Continue monitoring food tolerance, %PO intake of meals , and BM.
[2022-03-01 14:06] LABS: Bacteria,Urine 1+ /HPF (Negative); Bilirubin,Urine NEG (Negative); Blood,Urine NEG (Negative); Color,Urine Yellow (Yellow); Mucus,Urine FEW /HPF
[2022-03-01 16:52] LABS: Creatinine,Urine 245.7 mg/dL (0.1-20.0); Protein/Creatinine Ratio,Urine 0.78
--- NOTE | 2022-03-01 17:56 | Ultrasound Report ---
ULTRASOUND RENAL INDICATION / CLINICAL INFORMATION: Acute renal failure.. COMPARISON: None available. FINDINGS: RIGHT KIDNEY: Length = 10.4 cm. - Echogenicity: Normal. - Cortical Thickness: Normal. - Hydronephrosis: None. - Cyst or mass: No significant abnormality. - Stones: None seen. LEFT KIDNEY: Length = 10.7 cm. - Echogenicity: Normal. - Cortical Thickness: Normal. - Hydronephrosis: None. - Cyst or mass: No significant abnormality. - Stones: None seen. URINARY BLADDER: No significant abnormality. FREE FLUID: Small amount pleural fluid ADDITIONAL FINDINGS: None. IMPRESSION: 1. No significant abnormality. Small amount pleural fluid. Signer Name: Toribio Anderson MD Signed: 03/01/2022 5:52 PM Workstation Name: [id number]
[2022-03-01] MEDS: traZODone 50 MG TAB PO SCH (21:04)
[2022-03-02] MEDS: hydrALAZINE 25 MG TAB PO SCH ×3 (05:31→21:18)
[2022-03-02] MEDS: ISOSORBIDE DINITRATE 20 MG TAB PO SCH ×3 (05:31→21:18)
[2022-03-02 06:52] LABS: Albumin 2.7 g/dL (3.9-5); BUN/Creatinine Ratio 15; Blood Urea Nitrogen 45 mg/dL (9-20); Calcium 7.9 mg/dL (8.4-10.2); Hemolysis Index 6
[2022-03-02 06:53] LABS: Alanine Aminotransferase < 5 units/L (7-56)
[2022-03-02] MEDS: INSULIN LISPRO 100 UNIT/ML SUB-Q SCH ×4 (07:30→22:42)
[2022-03-02] MEDS: IPRATROPIUM/ALBUTEROL SULFATE 3 ML AMPUL.NEB IH SCH ×3 (09:18→20:16)
[2022-03-02] MEDS: FAMOTIDINE 10 MG TAB PO SCH ×2 (09:34→21:18)
[2022-03-02] MEDS: cloNIDine 0.1 MG TAB PO SCH ×2 (09:34→21:18)
[2022-03-02] MEDS: FUROSEMIDE 40 MG TAB PO SCH (09:34)
[2022-03-02] MEDS: ASPIRIN 81 MG TAB CHEW PO SCH (09:34)
[2022-03-02] MEDS: carvediloL 6.25 MG TAB PO SCH ×2 (09:35→21:18)
[2022-03-02] MEDS: amLODIPine 10 MG TAB PO SCH (09:35)
[2022-03-02] MEDS: SERTRALINE 50 MG TAB PO SCH (09:35)
[2022-03-02] MEDS: HEPARIN 5,000 UNIT/1 ML VIAL SUB-Q SCH ×2 (09:36→21:18)
--- NOTE | 2022-03-02 09:45 | Progress Note ---
Assessment and Plan 1. Acute kidney injury: Vasomotor NICKY superimposed on CKD in the setting of decompensated CHF. Cardiorenal syndrome. Renal US negative for hydro. Monitor renal function. Creatinine level improving. Renal prognosis is guarded. Avoid nephrotoxic agents. Meds dosage based on GFR. 2. FEN: Volume overload, diuretics, monitor. Monitor lytes and volume status. 3. Decompensated HFrEF, POA: EF 35-40%. Coreg and Hydralazine. Followed by Cards. Monitor. 4. Severe pulmonary hypertension. Continue to monitor. 5. 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 Monitor. 6. Uncontrolled Hypertension: Current BP is better. Monitor. 7. Normocytic anemia, POA: Monitor. 8. Medical noncompliance. Subjective: Patient was seen and examined at the bedside. Doing ok. Examination: General appearance: well-developed, appears stated age, no distress, obese HEENT: atraumatic Neck: trachea midline, JVD Respiratory: ctab Heart: S1S2, regular, no murmur Abdomen: soft, bowel sounds heard, NT Integumentary: no obvious rash Neurologic: AO, blindness, able to move extremities Ext: LE edema noted Subjective Date of service: 03/02/22 Principal diagnosis: CHF Objective - Vital Signs Vital signs: Vital Signs - 12hr 03/01/22 03/01/22 03/02/22 22:00 23:04 : Temperature 98.6 F 98.5 F Pulse Rate 70 69 Pulse Rate [ Anterior] Pulse Rate [ Posterior] Respiratory 18 18 Rate Respiratory Rate [Anterior] Respiratory Rate [Posterior ] Blood Pressure 138/78 144/81 O2 Sat by Pulse 94 95 96 Oximetry 03/02/22 03/02/22 03/02/22 08:19 09:19 09:20 Temperature 98.5 F Pulse Rate Pulse Rate [ 83 Anterior] Pulse Rate [ 71 Posterior] Respiratory 14 Rate Respiratory 18 Rate [Anterior] Respiratory 18 Rate [Posterior ] Blood Pressure 151/83 O2 Sat by Pulse 96 Oximetry - Lab 02/28/22 05:47 03/03/22 05:18 Most recent lab results Calcium 7.9 mg/dL (8.4-10.2) L 03/02/22 06:07 Urine Creatinine 245.7 mg/dL (0.1-20.0) H 03/01/22 13:39 Urine Sodium 10 mmol/L 03/01/22 13:39 Urine Total Protein 192 mg/dL (5-11.8) H 03/01/22 13:39 Medications & Allergies - Medications Allergies/Adverse Reactions: Allergies Penicillins Allergy (Verified 09/20/17 16:18) Hives Home Medications: Home Medications Medication Instructions Recorded Confirmed Last Taken Type Aspirin [Aspirin BABY CHEW TAB] 81 mg PO QDAY #30 tab.chew 03/20/14 03/01/22 04/18/21 Rx Insulin NPH/Regular [NovoLIN 70/30] 10 units SQ QAM #30 dose 03/20/14 03/01/22 04/06/21 Rx Sertraline [Zoloft] 75 mg PO QAM #30 tablet 03/20/14 03/01/22 04/06/21 Rx Simvastatin (Nf) [Zocor TAB] 20 mg PO QHS #30 tablet 03/20/14 03/01/22 04/06/21 Rx traZODone [Desyrel] 50 mg PO QHS #30 tablet 02/23/21 03/01/22 04/06/21 Rx cloNIDine [Catapres] 0.1 mg PO BID #60 tablet 05/19/21 03/01/22 Unknown Rx hydrALAZINE [Apresoline TAB] 50 mg PO Q8HR #180 tablet 05/19/21 03/01/22 Unknown Rx amLODIPine 10 mg PO QDAY #90 tablet 02/24/22 03/01/22 Unknown Rx Active Medications: Generic Name Dose Route Start Last Admin Trade Name Freq PRN Reason Stop Dose Admin Acetaminophen 650 mg 02/27/22 04:04 Acetaminophen 325 Mg Tab PO Q4H PRN Pain MILD(1-3)/Fever >100.5/DEE Albuterol 2.5 mg 02/27/22 04:04 Albuterol 2.5 Mg/3 Ml Nebu IH Q3HRT PRN Shortness Of Breath Albuterol/Ipratropium 1 ampul 02/27/22 20:00 03/02/22 09:18 Ipratropium/Albuterol Sulfate 3 Ml Ampul.Neb IH 1 ampul TIDRT YENNI Administration Amlodipine Besylate 10 mg 02/27/22 10:00 03/02/22 09:35 Amlodipine 10 Mg Tab PO 10 mg QDAY YENNI Administration Aspirin 81 mg 02/27/22 10:00 03/02/22 09:34 Aspirin 81 Mg Tab Chew PO 81 mg QDAY YENNI Administration Atorvastatin Calcium 40 mg 02/27/22 22:00 03/01/22 21:04 Atorvastatin 40 Mg Tab PO 40 mg QHS YENNI Administration Carvedilol 6.25 mg 02/27/22 14:00 03/02/22 09:35 Carvedilol 6.25 Mg Tab PO 6.25 mg BID YENNI Administration Clonidine HCl 0.1 mg 02/27/22 10:00 03/02/22 09:34 Clonidine 0.1 Mg Tab PO 0.1 mg BID YENNI Administration Dextrose 50 ml 02/27/22 04:04 Dextrose 50% In Water (25gm) 50 Ml Syringe IV Q30MIN PRN Hypoglycemia Protocol Famotidine 10 mg 02/27/22 10:00 03/02/22 09:34 Famotidine 10 Mg Tab PO 10 mg BID YENNI Administration Furosemide 40 mg 03/01/22 10:00 03/02/22 09:34 Furosemide 40 Mg Tab PO 40 mg QDAY YENNI Administration Heparin Sodium (Porcine) 5,000 unit 02/27/22 10:00 03/02/22 09:36 Heparin 5,000 Unit/1 Ml Vial SUB-Q 5,000 unit Q12HR YENNI Administration Hydralazine HCl 50 mg 02/27/22 06:00 03/02/22 05:31 Hydralazine 25 Mg Tab PO 50 mg Q8HR YENNI Administration Hydromorphone HCl 0.5 mg 02/27/22 04:04 02/27/22 09:44 Hydromorphone 1 Mg/1 Ml Inj IV 0.5 mg Q3H PRN Administration Pain , Severe (7-10) Insulin Human Lispro 0 unit 02/27/22 07:30 03/01/22 22:00 Insulin Lispro 100 Unit/Ml SUB-Q Not Given ACHS [facility] Protocol Isosorbide Dinitrate 20 mg 02/28/22 14:00 03/02/22 05:31 Isosorbide Dinitrate 20 Mg Tab PO 20 mg Q8HR YENNI Administration Morphine Sulfate 2 mg 02/27/22 04:04 02/27/22 18:16 Morphine 2 Mg/1 Ml Inj IV 2 mg Q4H PRN Administration Pain, Moderate (4-6) Ondansetron HCl 4 mg 02/27/22 04:04 02/28/22 05:51 Ondansetron 4 Mg/2 Ml Inj IV 4 mg Q8H PRN Administration Nausea And Vomiting Oxycodone/Acetaminophen 1 tab 03/01/22 11:00 03/02/22 09:35 Oxycodone /Acetaminophen 5-325mg Tab PO 1 tab Q6H PRN Administration Pain, Moderate (4-6) Sertraline HCl 75 mg 02/27/22 10:00 03/02/22 09:35 Sertraline 50 Mg Tab PO 75 mg QAM YENNI Administration Sodium Chloride 10 ml 02/27/22 10:00 03/01/22 21:04 Sodium Chloride 0.9% 10 Ml Flush Syringe IV 10 ml BID YENNI Administration Sodium Chloride 10 ml 02/27/22 04:04 Sodium Chloride 0.9% 10 Ml Flush Syringe IV PRN PRN LINE FLUSH Trazodone HCl 50 mg 02/27/22 22:00 03/01/22 21:04 Trazodone 50 Mg Tab PO 50 mg QHS YENNI Administration
--- NOTE | 2022-03-02 13:00 | Progress Note ---
Assessment and Plan Assessment and plan: #Acute on chronic systolic heart failure #Severe pulmonary hypertension secondary to left heart failure #Acute hypoxic respiratory failure - Continue CHF exacerbation protocol: Telemetry, Strict I/O, monitor urine output every shift, daily weights, afterload reduction, low-sodium diet, and fluid restriction of approximately 1.5 mL/day, IV Lasix 40 mg daily (holding in the setting of NICKY worsening) - Supplemental oxygen: 2L - ProBNP on admission: 051 - Cardiology consulted; appreciate recs - TTE revealing EF 35-40% with mildly dilated LV, moderately decreased LV systolic function, moderate concentric LVH, mildly dilated RV, mildly hypokinetic RV, moderately dilated LA, mildly dilated RA, RVSP 85-90 mmHg.. - BLE Doppler negative for DVT. Negative troponin x2. - continue supplemental O2, will wean as tolerated - home O2 walk test ordered - Cardiology following, assistance appreciated #NICKY on CKD stage III-improving #Cardiorenal syndrome - Creatinine 2.1--> 2.5 -> 3.5 -> 3.1 - Likely secondary to heart failure exacerbation + worsened with IV diuresis - Holding IV Lasix - Renally dose meds and avoid nephrotoxic drugs - Nephrology following, assistance appreciated #Insulin dependent type II diabetes mellitus, controlled - hemoglobin A1c: Unknown - home regimen: NPH 70/30 10 units daily - current regimen: Moderate SSI - blood glucose goal 140-180 while inpatient - continue to monitor #Hypertension - home medications: Amlodipine 10 mg daily, clonidine 0.1 mg twice daily, p.o. hydralazine 50 mg every 8 hours - current medications: Amlodipine 10 mg daily, Coreg 6.25 mg twice daily, clonidine 0.1 mg twice daily, p.o. hydralazine 50 mg every 8 hours - SBP goal <160 and DBP goal <90 while inpatient - continue to monitor #History of panic attacks - continue home meds #Advanced care planning -Disease education conducted, care plan discussed, diagnoses discussed, prognosis discussed, and patient acknowledges understanding with care plan -Time: +30 min History Interval history: No acute events overnight. Patient denies worsening shortness of breath, chest pain or palpitations. No complaints at this time. Hospitalist Physical - Physical exam Narrative exam: GENERAL: Well-developed well-nourished. In no acute distress. HEENT: NC in place @2LPM CHEST/LUNGS: mild expiratory crackles HEART/CARDIOVASCULAR: RRR. No murmur, rubs or gallops appreciated. ABDOMEN: +BS. NT/ND. SKIN: No rashes noted. NEURO: No focal motor deficit. EXTREMITIES: No cyanosis, clubbing. 1+BLE edema. PSYCH: Cooperative. - Constitutional Vitals: Temp Pulse Resp BP Pulse Ox 98.5 F 83 18 151/83 96 03/02/22 08:19 03/02/22 09:20 03/02/22 09:20 03/02/22 08:19 03/02/22 09:19 General appearance: Present: no acute distress, well-nourished HEART Score - HEART Score Troponin: Troponin T < 0.010 ng/mL (0.00-0.029) 02/27/22 07:34 Results - Labs CBC & Chem 7: 02/28/22 05:47 03/02/22 06:07 Labs: Laboratory Last Values WBC 6.5 K/mm3 (4.5-11.0) 02/28/22 05:47 RBC 3.68 M/mm3 (3.65-5.03) 02/28/22 05:47 Hgb 10.7 gm/dl (11.8-15.2) L 02/28/22 05:47 Hct 32.8 % (35.5-45.6) L 02/28/22 05:47 MCV 89 fl (84-94) 02/28/22 05:47 MCH 29 pg (28-32) 02/28/22 05:47 MCHC 33 % (32-34) 02/28/22 05:47 RDW 13.6 % (13.2-15.2) 02/28/22 05:47 Plt Count 239 K/mm3 (140-440) 02/28/22 05:47 Lymph % (Auto) Lead Press Operator 02/27/22 01:22 Add Manual Diff Complete 02/28/22 05:47 Total Counted 100 02/28/22 05:47 Seg Neutrophils % Lead Press Operator 02/27/22 01:22 Seg Neuts % (Manual) 76.0 % (40.0-70.0) H 02/28/22 05:47 Band Neutrophils % 0 % 02/28/22 05:47 Lymphocytes % (Manual) 19.0 % (13.4-35.0) 02/28/22 05:47 Reactive Lymphs % (Man) 0 % 02/28/22 05:47 Monocytes % (Manual) 4.0 % (0.0-7.3) 02/28/22 05:47 Eosinophils % (Manual) 0 % (0.0-4.3) 02/28/22 05:47 Basophils % (Manual) 0 % (0.0-1.8) 02/28/22 05:47 Metamyelocytes % 1.0 % 02/28/22 05:47 Myelocytes % 0 % 02/28/22 05:47 Promyelocytes % 0 % 02/28/22 05:47 Blast Cells % 0 % 02/28/22 05:47 Nucleated RBC % Not Reportable 02/28/22 05:47 Seg Neutrophils # Man 4.9 K/mm3 (1.8-7.7) 02/28/22 05:47 Band Neutrophils # 0.0 K/mm3 02/28/22 05:47 Lymphocytes # (Manual) 1.2 K/mm3 (1.2-5.4) 02/28/22 05:47 Abs React Lymphs (Man) 0.0 K/mm3 02/28/22 05:47 Monocytes # (Manual) 0.3 K/mm3 (0.0-0.8) 02/28/22 05:47 Eosinophils # (Manual) 0.0 K/mm3 (0.0-0.4) 02/28/22 05:47 Basophils # (Manual) 0.0 K/mm3 (0.0-0.1) 02/28/22 05:47 Metamyelocytes # 0.1 K/mm3 02/28/22 05:47 Myelocytes # 0.0 K/mm3 02/28/22 05:47 Promyelocytes # 0.0 K/mm3 02/28/22 05:47 Blast Cells # 0.0 K/mm3 02/28/22 05:47 WBC Morphology Not Reportable 02/28/22 05:47 Hypersegmented Neuts Not Reportable 02/28/22 05:47 Hyposegmented Neuts Not Reportable 02/28/22 05:47 Hypogranular Neuts Not Reportable 02/28/22 05:47 Smudge Cells Not Reportable 02/28/22 05:47 Toxic Granulation Not Reportable 02/28/22 05:47 Toxic Vacuolation Not Reportable 02/28/22 05:47 Dohle Bodies Not Reportable 02/28/22 05:47 Pelger-Huet Anomaly Not Reportable 02/28/22 05:47 Ricky Rods Not Reportable 02/28/22 05:47 Platelet Estimate Consistent w auto 02/28/22 05:47 Clumped Platelets Not Reportable 02/28/22 05:47 Plt Clumps, EDTA Not Reportable 02/28/22 05:47 Large Platelets Not Reportable 02/28/22 05:47 Giant Platelets Not Reportable 02/28/22 05:47 Platelet Satelliting Not Reportable 02/28/22 05:47 Plt Morphology Comment Not Reportable 02/28/22 05:47 RBC Morphology Normal 02/28/22 05:47 Dimorphic RBCs Not Reportable 02/28/22 05:47 Polychromasia Not Reportable 02/28/22 05:47 Hypochromasia Not Reportable 02/28/22 05:47 Poikilocytosis Not Reportable 02/28/22 05:47 Anisocytosis Not Reportable 02/28/22 05:47 Microcytosis Not Reportable 02/28/22 05:47 Macrocytosis Not Reportable 02/28/22 05:47 Spherocytes Not Reportable 02/28/22 05:47 Pappenheimer Bodies Not Reportable 02/28/22 05:47 Sickle Cells Not Reportable 02/28/22 05:47 Target Cells Not Reportable 02/28/22 05:47 Tear Drop Cells Not Reportable 02/28/22 05:47 Ovalocytes Not Reportable 02/28/22 05:47 Helmet Cells Not Reportable 02/28/22 05:47 [place] Bodies Not Reportable 02/28/22 05:47 [place] Rings Not Reportable 02/28/22 05:47 Narcisa Cells Not Reportable 02/28/22 05:47 Bite Cells Not Reportable 02/28/22 05:47 Crenated Cell Not Reportable 02/28/22 05:47 Elliptocytes Not Reportable 02/28/22 05:47 Acanthocytes (Spur) Not Reportable 02/28/22 05:47 Rouleaux Not Reportable 02/28/22 05:47 Hemoglobin C Crystals Not Reportable 02/28/22 05:47 Schistocytes Not Reportable 02/28/22 05:47 Malaria parasites Not Reportable 02/28/22 05:47 Yosvany Bodies Not Reportable 02/28/22 05:47 Hem Pathologist Commnt No 02/28/22 05:47 PT 13.3 Sec. (12.2-14.9) 02/27/22 01:22 INR 0.92 (0.87-1.13) 02/27/22 01:22 APTT 31.2 Sec. (24.2-36.6) 02/27/22 01:22 Sodium 140 mmol/L (137-145) 03/02/22 06:07 Potassium 3.6 mmol/L (3.6-5.0) 03/02/22 06:07 Chloride 102.2 mmol/L (98-107) 03/02/22 06:07 Carbon Dioxide 26 mmol/L (22-30) 03/02/22 06:07 Anion Gap 15 mmol/L 03/02/22 06:07 BUN 45 mg/dL (9-20) H 03/02/22 06:07 Creatinine 3.1 mg/dL (0.8-1.3) H 03/02/22 06:07 Estimated GFR 25 ml/min 03/02/22 06:07 BUN/Creatinine Ratio 15 % 03/02/22 06:07 Glucose 128 mg/dL (75-100) H 03/02/22 06:07 POC Glucose 127 mg/dL (70-105) H 03/02/22 11:36 Calcium 7.9 mg/dL (8.4-10.2) L 03/02/22 06:07 Total Bilirubin 0.20 mg/dL (0.1-1.2) 03/02/22 06:07 AST 9 units/L (5-40) 03/02/22 06:07 ALT < 5 units/L (7-56) L 03/02/22 06:07 Alkaline Phosphatase 70 units/L (35-129) 03/02/22 06:07 Troponin T < 0.010 ng/mL (0.00-0.029) 02/27/22 07:34 NT-Pro-B Natriuret Pep 14718 pg/mL (0-900) H 02/27/22 01:22 Total Protein 5.1 g/dL (6.3-8.2) L 03/02/22 06:07 Albumin 2.7 g/dL (3.9-5) L 03/02/22 06:07 Albumin/Globulin Ratio 1.1 % 03/02/22 06:07 Lipase 10 units/L (13-60) L 02/27/22 01:22 Urine Color Yellow (Yellow) 03/01/22 13:39 Urine Turbidity Clear (Clear) 03/01/22 13:39 Urine pH 5.0 (5.0-7.0) 03/01/22 13:39 Ur Specific Valentine 1.016 (1.003-1.030) 03/01/22 13:39 Urine Protein 100 mg/dl mg/dL (Negative) 03/01/22 13:39 Urine Glucose (UA) 50 mg/dL (Negative) 03/01/22 13:39 Urine Ketones Neg mg/dL (Negative) 03/01/22 13:39 Urine Blood Neg (Negative) 03/01/22 13:39 Urine Nitrite Neg (Negative) 03/01/22 13:39 Urine Bilirubin Neg (Negative) 03/01/22 13:39 Urine Urobilinogen 2.0 mg/dL (<2.0) 03/01/22 13:39 Ur Leukocyte Esterase Neg (Negative) 03/01/22 13:39 Urine WBC (Auto) 3.0 /HPF (0.0-6.0) 03/01/22 13:39 Urine RBC (Auto) 2.0 /HPF (0.0-6.0) 03/01/22 13:39 Urine Bacteria (Auto) 1+ /HPF (Negative) 03/01/22 13:39 Urine Mucus Few /HPF 03/01/22 13:39 Urine Yeast (Budding) Few /HPF 03/01/22 13:39 Urine Creatinine 245.7 mg/dL (0.1-20.0) H 03/01/22 13:39 Protein/Creatinin Ratio 0.78 03/01/22 13:39 Urine Sodium 10 mmol/L 03/01/22 13:39 Urine Total Protein 192 mg/dL (5-11.8) H 03/01/22 13:39 Wagner/IV: Voiding Method Urinal Active Medications - Current Medications Current Medications: Generic Name Dose Route Start Last Admin Trade Name Freq PRN Reason Stop Dose Admin Acetaminophen 650 mg 02/27/22 04:04 Acetaminophen 325 Mg Tab PO Q4H PRN Pain MILD(1-3)/Fever >100.5/DEE Albuterol 2.5 mg 02/27/22 04:04 Albuterol 2.5 Mg/3 Ml Nebu IH Q3HRT PRN Shortness Of Breath Albuterol/Ipratropium 1 ampul 02/27/22 20:00 03/02/22 09:18 Ipratropium/Albuterol Sulfate 3 Ml Ampul.Neb IH 1 ampul TIDRT YENNI Administration Amlodipine Besylate 10 mg 02/27/22 10:00 03/02/22 09:35 Amlodipine 10 Mg Tab PO 10 mg QDAY YENNI Administration Aspirin 81 mg 02/27/22 10:00 03/02/22 09:34 Aspirin 81 Mg Tab Chew PO 81 mg QDAY YENNI Administration Atorvastatin Calcium 40 mg 02/27/22 22:00 03/01/22 21:04 Atorvastatin 40 Mg Tab PO 40 mg QHS YENNI Administration Carvedilol 6.25 mg 02/27/22 14:00 03/02/22 09:35 Carvedilol 6.25 Mg Tab PO 6.25 mg BID YENNI Administration Clonidine HCl 0.1 mg 02/27/22 10:00 03/02/22 09:34 Clonidine 0.1 Mg Tab PO 0.1 mg BID YENNI Administration Dextrose 50 ml 02/27/22 04:04 Dextrose 50% In Water (25gm) 50 Ml Syringe IV Q30MIN PRN Hypoglycemia Protocol Famotidine 10 mg 02/27/22 10:00 03/02/22 09:34 Famotidine 10 Mg Tab PO 10 mg BID YENNI Administration Furosemide 40 mg 03/01/22 10:00 03/02/22 09:34 Furosemide 40 Mg Tab PO 40 mg QDAY YENNI Administration Heparin Sodium (Porcine) 5,000 unit 02/27/22 10:00 03/02/22 09:36 Heparin 5,000 Unit/1 Ml Vial SUB-Q 5,000 unit Q12HR YENNI Administration Hydralazine HCl 50 mg 02/27/22 06:00 03/02/22 05:31 Hydralazine 25 Mg Tab PO 50 mg Q8HR YENNI Administration Hydromorphone HCl 0.5 mg 02/27/22 04:04 02/27/22 09:44 Hydromorphone 1 Mg/1 Ml Inj IV 0.5 mg Q3H PRN Administration Pain , Severe (7-10) Insulin Human Lispro 0 unit 02/27/22 07:30 03/01/22 22:00 Insulin Lispro 100 Unit/Ml SUB-Q Not Given ACHS [facility] Protocol Isosorbide Dinitrate 20 mg 02/28/22 14:00 03/02/22 05:31 Isosorbide Dinitrate 20 Mg Tab PO 20 mg Q8HR YENNI Administration Morphine Sulfate 2 mg 02/27/22 04:04 02/27/22 18:16 Morphine 2 Mg/1 Ml Inj IV 2 mg Q4H PRN Administration Pain, Moderate (4-6) Ondansetron HCl 4 mg 02/27/22 04:04 02/28/22 05:51 Ondansetron 4 Mg/2 Ml Inj IV 4 mg Q8H PRN Administration Nausea And Vomiting Oxycodone/Acetaminophen 1 tab 03/01/22 11:00 03/02/22 09:35 Oxycodone /Acetaminophen 5-325mg Tab PO 1 tab Q6H PRN Administration Pain, Moderate (4-6) Sertraline HCl 75 mg 02/27/22 10:00 03/02/22 09:35 Sertraline 50 Mg Tab PO 75 mg QAM YENNI Administration Sodium Chloride 10 ml 02/27/22 10:00 03/01/22 21:04 Sodium Chloride 0.9% 10 Ml Flush Syringe IV 10 ml BID YENNI Administration Sodium Chloride 10 ml 02/27/22 04:04 Sodium Chloride 0.9% 10 Ml Flush Syringe IV PRN PRN LINE FLUSH Trazodone HCl 50 mg 02/27/22 22:00 03/01/22 21:04 Trazodone 50 Mg Tab PO 50 mg QHS YENNI Administration Nutrition/Malnutrition Assess - Dietary Evaluation Nutrition/Malnutrition Findings: Nutrition Notes Start: 02/27/22 15:05 Freq: Status: Active Protocol: Document 02/27/22 15:05 BUCKY (Rec: 02/27/22 15:18 BUCKY [id number]) Nutrition Notes Need for Assessment generated from: MD Order,Education Initial or Follow up Brief Note Current Diagnosis CKD(stage I-IV),Diabetes, Hypertension Other Pertinent Diagnosis CHF, Pulmonary Edema, Pleural Effusion, Liver Disease, PVD, Seizures. Current Diet Cardiac/Consistent Carbohydrates Diet (since B ). Height 5 ft 5 in Weight 74.2 kg Nelson Body Weight (kg) 61.81 BMI 27.2 Intake Prior to Admission Good Weight change and time frame Pt denies having loss body weight [employer]. Weight Status Overweight Subjective/Other Information RD consult for nutrition education. No reports available on Pt's PO intake of meals at the time , will assess at F/U. Pt is on Room Air, O2 saturation @ 94%, according to Physical Assessment history notes. Pt still in critical condition , not a candidate for Nutrition Education at the time, will assess feasibility on F/U. Percent of energy/protein needs met: Prescribed Cardiac/Consistent Carbohydrates Diet provides for energy/protein needs (1, 977 Kcal/86 g) during LOS. Nutrition Intervention Follow-Up By: 03/04/22 Additional Comments Nutrition education will be provided on F/U, if feasible. Continue monitoring food tolerance, %PO intake of meals , and BM.
--- NOTE | 2022-03-02 13:25 | Progress Note ---
Assessment and Plan - Patient Problems (1) Acute pulmonary edema Current Visit: Yes Status: Acute Plan to address problem: 56-year-old man admitted with uncontrolled hypertension, systolic blood pressure greater than 200, associated with acute pulmonary edema. Echocardiogram shows left ventricular systolic ejection fraction moderately impaired, 35 to 40% with moderate concentric left ventricular per trophy. He has history of heart failure and hypertension for which he is admittedly noncompliant with recommended medical therapy and dietary salt restriction. In addition to resumption of guideline directed medical therapy and optimal blood pressure control, most important intervention at this time is social work administrator consultation to provide options for outpatient management with regards to procurement of his medications and optimal outpatient cardiac and medical follow-up. Subjective Date of service: 03/02/22 Principal diagnosis: CHF Interval history: Patient is comfortable, no cardiac complaints, no new cardiac events reported. Objective Vital Signs Temp Pulse Pulse Pulse Resp Resp Resp 03/02/22 12:57 97.8 F 68 03/02/22 12:18 97.2 F L 03/02/22 09:20 83 71 18 18 03/02/22 09:19 03/02/22 08:19 98.5 F 14 03/02/22 04:22 98.5 F 69 18 03/01/22 23:04 98.6 F 70 18 03/01/22 22:00 03/01/22 20:40 03/01/22 20:38 74 70 18 18 03/01/22 20:05 98.4 F 70 17 03/01/22 19:46 67 03/01/22 15:39 98.1 F 68 16 BP Pulse Ox 03/02/22 12:57 143/81 98 03/02/22 12:18 154/85 03/02/22 09:20 03/02/22 09:19 96 03/02/22 08:19 151/83 03/02/22 04:22 144/81 96 03/01/22 23:04 138/78 95 03/01/22 22:00 94 03/01/22 20:40 95 03/01/22 20:38 03/01/22 20:05 135/82 94 03/01/22 19:46 03/01/22 15:39 132/82 95 - Physical Examination General: No Apparent Distress HEENT: Positive: PERRL Neck: Positive: neck supple Cardiac: Positive: Reg Rate and Rhythm Lungs: Positive: Decreased Breath Sounds Neuro: Positive: Grossly Intact Abdomen: Positive: Soft, Active Bowel Sounds Skin: Negative: Rash Extremities: Present: edema (Minimal), warm - Labs and Meds Cardiac Enzymes 03/02/22 Range/Units 06:07 AST 9 (5-40) units/L Comprehensive Metabolic Panel 03/02/22 Range/Units 06:07 Sodium 140 (137-145) mmol/L Potassium 3.6 (3.6-5.0) mmol/L Chloride 102.2 (98-107) mmol/L Carbon Dioxide 26 (22-30) mmol/L BUN 45 H (9-20) mg/dL Creatinine 3.1 H (0.8-1.3) mg/dL Glucose 128 H (75-100) mg/dL Calcium 7.9 L (8.4-10.2) mg/dL AST 9 (5-40) units/L ALT < 5 L (7-56) units/L Alkaline Phosphatase 70 (35-129) units/L Total Protein 5.1 L (6.3-8.2) g/dL Albumin 2.7 L (3.9-5) g/dL
[2022-03-02] MEDS: traZODone 50 MG TAB PO SCH (21:18)
[2022-03-03] MEDS: ISOSORBIDE DINITRATE 20 MG TAB PO SCH ×3 (05:53→22:39)
[2022-03-03] MEDS: hydrALAZINE 25 MG TAB PO SCH ×3 (05:53→22:38)
[2022-03-03 06:37] LABS: Calcium 8.2 mg/dL (8.4-10.2)
--- NOTE | 2022-03-03 07:32 | Progress Note ---
Assessment and Plan 1. Acute kidney injury: Vasomotor NICKY superimposed on CKD in the setting of decompensated CHF. Cardiorenal syndrome. Renal US negative for hydro. Monitor renal function. Creatinine level improving. Renal prognosis is guarded. Avoid nephrotoxic agents. Meds dosage based on GFR. 2. FEN: Volume overload, diuretics, monitor. Monitor lytes and volume status. 3. Decompensated HFrEF, POA: EF 35-40%. Coreg and Hydralazine. Followed by Cards. Monitor. 4. Severe pulmonary hypertension. Continue to monitor. 5. 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 Monitor. 6. Uncontrolled Hypertension: Current BP is better. Monitor. 7. Normocytic anemia, POA: Monitor. 8. Medical noncompliance. Subjective: Patient was seen and examined at the bedside. Doing ok. Examination: General appearance: well-developed, appears stated age, no distress, obese HEENT: atraumatic Neck: trachea midline, JVD Respiratory: ctab Heart: S1S2, regular, no murmur Abdomen: soft, bowel sounds heard, NT Integumentary: no obvious rash Neurologic: AO, blindness, able to move extremities Ext: trace LE edema noted Subjective Date of service: 03/03/22 Principal diagnosis: CHF Objective - Vital Signs Vital signs: Vital Signs - 12hr 03/02/22 03/02/22 03/02/22 20:16 20:20 20:29 Temperature 97.8 F Pulse Rate 68 68 Pulse Rate [ 71 Posterior] Respiratory 16 Rate Respiratory 18 Rate [Posterior ] Blood Pressure 146/84 O2 Sat by Pulse 94 Oximetry 03/02/22 03/03/22 03/03/22 22:10 00:14 03:29 Temperature 98.0 F Pulse Rate 67 71 Pulse Rate [ Posterior] Respiratory 17 Rate Respiratory Rate [Posterior ] Blood Pressure 155/90 O2 Sat by Pulse 96 95 Oximetry 03/03/22 04:05 Temperature Pulse Rate 69 Pulse Rate [ Posterior] Respiratory Rate Respiratory Rate [Posterior ] Blood Pressure O2 Sat by Pulse Oximetry - Lab 02/28/22 05:47 03/04/22 05:11 Most recent lab results Calcium 8.2 mg/dL (8.4-10.2) L 03/03/22 05:18 Urine Creatinine 245.7 mg/dL (0.1-20.0) H 03/01/22 13:39 Urine Sodium 10 mmol/L 03/01/22 13:39 Urine Total Protein 192 mg/dL (5-11.8) H 03/01/22 13:39 Medications & Allergies - Medications Allergies/Adverse Reactions: Allergies Penicillins Allergy (Verified 09/20/17 16:18) Hives Home Medications: Home Medications Medication Instructions Recorded Confirmed Last Taken Type Insulin NPH/Regular [NovoLIN 70/30] 10 units SQ QAM #30 dose 03/20/14 03/01/22 04/06/21 Rx Sertraline [Zoloft] 75 mg PO QAM #30 tablet 03/20/14 03/01/22 04/06/21 Rx traZODone [Desyrel] 50 mg PO QHS #30 tablet 02/23/21 03/01/22 04/06/21 Rx Aspirin [Aspirin BABY CHEW TAB] 81 mg PO QDAY 30 Days #30 tab.chew 03/04/22 Unknown Rx AtorvaSTATin [Lipitor] 40 mg PO QHS 30 Days #30 tablet 03/04/22 Unknown Rx Furosemide [Lasix TAB] 40 mg PO QDAY 30 Days #30 tablet 03/04/22 Unknown Rx Isosorbide Dinitrate [Isordil] 20 mg PO Q8HR 30 Days #90 tablet 03/04/22 Unknown Rx amLODIPine 10 mg PO QDAY 30 Days #30 tablet 03/04/22 Unknown Rx carvediloL [Coreg] 6.25 mg PO BID 30 Days #60 tablet 03/04/22 Unknown Rx cloNIDine [Catapres] 0.1 mg PO BID 30 Days #60 tablet 03/04/22 Unknown Rx hydrALAZINE [Apresoline TAB] 50 mg PO Q8HR #180 tablet 03/04/22 Unknown Rx Active Medications: Generic Name Dose Route Start Last Admin Trade Name Freq PRN Reason Stop Dose Admin Acetaminophen 650 mg 02/27/22 04:04 Acetaminophen 325 Mg Tab PO Q4H PRN Pain MILD(1-3)/Fever >100.5/DEE Albuterol 2.5 mg 02/27/22 04:04 Albuterol 2.5 Mg/3 Ml Nebu IH Q3HRT PRN Shortness Of Breath Albuterol/Ipratropium 1 ampul 02/27/22 20:00 03/02/22 20:16 Ipratropium/Albuterol Sulfate 3 Ml Ampul.Neb IH 1 ampul TIDRT YENNI Administration Amlodipine Besylate 10 mg 02/27/22 10:00 03/02/22 09:35 Amlodipine 10 Mg Tab PO 10 mg QDAY YENNI Administration Aspirin 81 mg 02/27/22 10:00 03/02/22 09:34 Aspirin 81 Mg Tab Chew PO 81 mg QDAY YENNI Administration Atorvastatin Calcium 40 mg 02/27/22 22:00 03/02/22 21:18 Atorvastatin 40 Mg Tab PO 40 mg QHS YENNI Administration Carvedilol 6.25 mg 02/27/22 14:00 03/02/22 21:18 Carvedilol 6.25 Mg Tab PO 6.25 mg BID YENNI Administration Clonidine HCl 0.1 mg 02/27/22 10:00 03/02/22 21:18 Clonidine 0.1 Mg Tab PO 0.1 mg BID YENNI Administration Dextrose 50 ml 02/27/22 04:04 Dextrose 50% In Water (25gm) 50 Ml Syringe IV Q30MIN PRN Hypoglycemia Protocol Famotidine 10 mg 02/27/22 10:00 03/02/22 21:18 Famotidine 10 Mg Tab PO 10 mg BID YENNI Administration Furosemide 40 mg 03/01/22 10:00 03/02/22 09:34 Furosemide 40 Mg Tab PO 40 mg QDAY YENNI Administration Heparin Sodium (Porcine) 5,000 unit 02/27/22 10:00 03/02/22 21:18 Heparin 5,000 Unit/1 Ml Vial SUB-Q 5,000 unit Q12HR YENNI Administration Hydralazine HCl 50 mg 02/27/22 06:00 03/03/22 05:53 Hydralazine 25 Mg Tab PO 50 mg Q8HR YENNI Administration Hydromorphone HCl 0.5 mg 02/27/22 04:04 02/27/22 09:44 Hydromorphone 1 Mg/1 Ml Inj IV 0.5 mg Q3H PRN Administration Pain , Severe (7-10) Insulin Human Lispro 0 unit 02/27/22 07:30 03/02/22 22:42 Insulin Lispro 100 Unit/Ml SUB-Q 2 unit ACHS YENNI Administration Protocol Isosorbide Dinitrate 20 mg 02/28/22 14:00 03/03/22 05:53 Isosorbide Dinitrate 20 Mg Tab PO 20 mg Q8HR YENNI Administration Morphine Sulfate 2 mg 02/27/22 04:04 02/27/22 18:16 Morphine 2 Mg/1 Ml Inj IV 2 mg Q4H PRN Administration Pain, Moderate (4-6) Ondansetron HCl 4 mg 02/27/22 04:04 02/28/22 05:51 Ondansetron 4 Mg/2 Ml Inj IV 4 mg Q8H PRN Administration Nausea And Vomiting Oxycodone/Acetaminophen 1 tab 03/01/22 11:00 03/02/22 09:35 Oxycodone /Acetaminophen 5-325mg Tab PO 1 tab Q6H PRN Administration Pain, Moderate (4-6) Sertraline HCl 75 mg 02/27/22 10:00 03/02/22 09:35 Sertraline 50 Mg Tab PO 75 mg QAM YENNI Administration Sodium Chloride 10 ml 02/27/22 10:00 03/02/22 21:19 Sodium Chloride 0.9% 10 Ml Flush Syringe IV 10 ml BID YENNI Administration Sodium Chloride 10 ml 02/27/22 04:04 Sodium Chloride 0.9% 10 Ml Flush Syringe IV PRN PRN LINE FLUSH Trazodone HCl 50 mg 02/27/22 22:00 03/02/22 21:18 Trazodone 50 Mg Tab PO 50 mg QHS YENNI Administration
[2022-03-03] MEDS: IPRATROPIUM/ALBUTEROL SULFATE 3 ML AMPUL.NEB IH SCH ×3 (08:57→22:00)
--- NOTE | 2022-03-03 12:49 | Progress Note ---
Assessment and Plan - Patient Problems (1) Acute pulmonary edema Current Visit: Yes Status: Acute Plan to address problem: 56-year-old man admitted with uncontrolled hypertension, systolic blood pressure greater than 200, associated with acute pulmonary edema. Echocardiogram shows left ventricular systolic ejection fraction moderately impaired, 35 to 40% with moderate concentric left ventricular per trophy. He has history of heart failure and hypertension for which he is admittedly noncompliant with recommended medical therapy and dietary salt restriction. In addition to resumption of guideline directed medical therapy and optimal blood pressure control, most important intervention at this time is social and human services assistant consultation to provide options for outpatient management with regards to procurement of his medications and optimal outpatient cardiac and medical follow-up. Subjective Date of service: 03/03/22 Principal diagnosis: CHF Interval history: Patient looks and feels comfortable, no acute distress, no new cardiac complaints. Objective Vital Signs Temp Pulse Pulse Resp Resp BP BP 03/03/22 11:22 98.0 F 73 20 169/92 03/03/22 04:05 69 03/03/22 03:29 98.0 F 71 17 155/90 03/03/22 00:14 67 03/02/22 22:10 03/02/22 22:00 03/02/22 20:29 97.8 F 68 16 146/84 03/02/22 20:20 71 18 03/02/22 20:16 68 03/02/22 16:30 65 03/02/22 16:00 97.4 F L 66 18 134/78 03/02/22 12:57 97.8 F 68 143/81 Pulse Ox 03/03/22 11:22 94 03/03/22 04:05 03/03/22 03:29 95 03/03/22 00:14 03/02/22 22:10 96 03/02/22 22:00 94 03/02/22 20:29 94 03/02/22 20:20 03/02/22 20:16 03/02/22 16:30 96 03/02/22 16:00 96 03/02/22 12:57 98 - Physical Examination General: No Apparent Distress HEENT: Positive: PERRL Neck: Positive: neck supple Cardiac: Positive: Reg Rate and Rhythm Lungs: Positive: Decreased Breath Sounds Neuro: Positive: Grossly Intact Abdomen: Positive: Soft, Active Bowel Sounds Skin: Negative: Rash Extremities: Present: edema (Minimal), warm - Labs and Meds Comprehensive Metabolic Panel 03/03/22 Range/Units 05:18 Sodium 140 (137-145) mmol/L Potassium 4.0 (3.6-5.0) mmol/L Chloride 101.9 (98-107) mmol/L Carbon Dioxide 29 (22-30) mmol/L BUN 39 H (9-20) mg/dL Creatinine 2.4 H (0.8-1.3) mg/dL Glucose 103 H (75-100) mg/dL Calcium 8.2 L (8.4-10.2) mg/dL
[2022-03-03] MEDS: INSULIN LISPRO 100 UNIT/ML SUB-Q SCH ×2 (14:04→22:00)
[2022-03-03] MEDS: SERTRALINE 50 MG TAB PO SCH (16:26)
[2022-03-03] MEDS: cloNIDine 0.1 MG TAB PO SCH ×2 (16:28→22:39)
[2022-03-03] MEDS: amLODIPine 10 MG TAB PO SCH (16:28)
[2022-03-03] MEDS: FAMOTIDINE 10 MG TAB PO SCH ×2 (16:28→22:39)
[2022-03-03] MEDS: FUROSEMIDE 40 MG TAB PO SCH (16:29)
[2022-03-03] MEDS: carvediloL 6.25 MG TAB PO SCH ×2 (16:30→22:39)
[2022-03-03] MEDS: HEPARIN 5,000 UNIT/1 ML VIAL SUB-Q SCH ×2 (16:31→22:40)
[2022-03-03] MEDS: ASPIRIN 81 MG TAB CHEW PO SCH (16:31)
--- NOTE | 2022-03-03 20:04 | Progress Note ---
Assessment and Plan Assessment and plan: #Acute on chronic systolic heart failure #Severe pulmonary hypertension secondary to left heart failure #Acute hypoxic respiratory failure - Continue CHF exacerbation protocol: Telemetry, Strict I/O, monitor urine output every shift, daily weights, afterload reduction, low-sodium diet, and fluid restriction of approximately 1.5 mL/day, IV Lasix 40 mg daily (holding in the setting of NICKY worsening) - Supplemental oxygen: none - ProBNP on admission: 051 - Cardiology consulted; appreciate recs - TTE revealing EF 35-40% with mildly dilated LV, moderately decreased LV systolic function, moderate concentric LVH, mildly dilated RV, mildly hypokinetic RV, moderately dilated LA, mildly dilated RA, RVSP 85-90 mmHg.. - BLE Doppler negative for DVT. Negative troponin x2. - continue supplemental O2, will wean as tolerated - home O2 walk test completed, patient no longer requiring supplemental O2 - Cardiology following, assistance appreciated #NICKY on CKD stage III-improving #Cardiorenal syndrome - Likely secondary to heart failure exacerbation + worsened with IV diuresis - Holding IV Lasix - Renally dose meds and avoid nephrotoxic drugs - Nephrology following, assistance appreciated #Insulin dependent type II diabetes mellitus, controlled - hemoglobin A1c: Unknown - home regimen: NPH 70/30 10 units daily - current regimen: Moderate SSI - blood glucose goal 140-180 while inpatient - continue to monitor #Hypertension - home medications: Amlodipine 10 mg daily, clonidine 0.1 mg twice daily, p.o. hydralazine 50 mg every 8 hours - current medications: Amlodipine 10 mg daily, Coreg 6.25 mg twice daily, clonidine 0.1 mg twice daily, p.o. hydralazine 50 mg every 8 hours - SBP goal <160 and DBP goal <90 while inpatient - continue to monitor #History of panic attacks - continue home meds #Advanced care planning -Disease education conducted, care plan discussed, diagnoses discussed, prognosis discussed, and patient acknowledges understanding with care plan -Time: +30 min History Interval history: No acute events overnight. Room air. Reports feeling well. He has no complaints at this time. Hospitalist Physical - Physical exam Narrative exam: GENERAL: Well-developed well-nourished. In no acute distress. HEENT: Normocephalic. Atraumatic. CHEST/LUNGS: CTAB on room air HEART/CARDIOVASCULAR: RRR. No murmur, rubs or gallops appreciated. ABDOMEN: +BS. NT/ND. SKIN: No rashes noted. NEURO: No focal motor deficit. EXTREMITIES: No cyanosis, clubbing or edema. PSYCH: Cooperative. - Constitutional Vitals: Temp Pulse Resp BP Pulse Ox 99.0 F 73 20 181/105 93 03/03/22 15:34 03/03/22 16:30 03/03/22 15:34 03/03/22 15:34 03/03/22 15:34 General appearance: Present: no acute distress, well-nourished HEART Score - HEART Score Troponin: Troponin T < 0.010 ng/mL (0.00-0.029) 02/27/22 07:34 Results - Labs CBC & Chem 7: 02/28/22 05:47 03/04/22 05:11 Labs: Laboratory Last Values WBC 6.5 K/mm3 (4.5-11.0) 02/28/22 05:47 RBC 3.68 M/mm3 (3.65-5.03) 02/28/22 05:47 Hgb 10.7 gm/dl (11.8-15.2) L 02/28/22 05:47 Hct 32.8 % (35.5-45.6) L 02/28/22 05:47 MCV 89 fl (84-94) 02/28/22 05:47 MCH 29 pg (28-32) 02/28/22 05:47 MCHC 33 % (32-34) 02/28/22 05:47 RDW 13.6 % (13.2-15.2) 02/28/22 05:47 Plt Count 239 K/mm3 (140-440) 02/28/22 05:47 Lymph % (Auto) Arcgis Developer 02/27/22 01:22 Add Manual Diff Complete 02/28/22 05:47 Total Counted 100 02/28/22 05:47 Seg Neutrophils % Arcgis Developer 02/27/22 01:22 Seg Neuts % (Manual) 76.0 % (40.0-70.0) H 02/28/22 05:47 Band Neutrophils % 0 % 02/28/22 05:47 Lymphocytes % (Manual) 19.0 % (13.4-35.0) 02/28/22 05:47 Reactive Lymphs % (Man) 0 % 02/28/22 05:47 Monocytes % (Manual) 4.0 % (0.0-7.3) 02/28/22 05:47 Eosinophils % (Manual) 0 % (0.0-4.3) 02/28/22 05:47 Basophils % (Manual) 0 % (0.0-1.8) 02/28/22 05:47 Metamyelocytes % 1.0 % 02/28/22 05:47 Myelocytes % 0 % 02/28/22 05:47 Promyelocytes % 0 % 02/28/22 05:47 Blast Cells % 0 % 02/28/22 05:47 Nucleated RBC % Not Reportable 02/28/22 05:47 Seg Neutrophils # Man 4.9 K/mm3 (1.8-7.7) 02/28/22 05:47 Band Neutrophils # 0.0 K/mm3 02/28/22 05:47 Lymphocytes # (Manual) 1.2 K/mm3 (1.2-5.4) 02/28/22 05:47 Abs React Lymphs (Man) 0.0 K/mm3 02/28/22 05:47 Monocytes # (Manual) 0.3 K/mm3 (0.0-0.8) 02/28/22 05:47 Eosinophils # (Manual) 0.0 K/mm3 (0.0-0.4) 02/28/22 05:47 Basophils # (Manual) 0.0 K/mm3 (0.0-0.1) 02/28/22 05:47 Metamyelocytes # 0.1 K/mm3 02/28/22 05:47 Myelocytes # 0.0 K/mm3 02/28/22 05:47 Promyelocytes # 0.0 K/mm3 02/28/22 05:47 Blast Cells # 0.0 K/mm3 02/28/22 05:47 WBC Morphology Not Reportable 02/28/22 05:47 Hypersegmented Neuts Not Reportable 02/28/22 05:47 Hyposegmented Neuts Not Reportable 02/28/22 05:47 Hypogranular Neuts Not Reportable 02/28/22 05:47 Smudge Cells Not Reportable 02/28/22 05:47 Toxic Granulation Not Reportable 02/28/22 05:47 Toxic Vacuolation Not Reportable 02/28/22 05:47 Dohle Bodies Not Reportable 02/28/22 05:47 Pelger-Huet Anomaly Not Reportable 02/28/22 05:47 Ricky Rods Not Reportable 02/28/22 05:47 Platelet Estimate Consistent w auto 02/28/22 05:47 Clumped Platelets Not Reportable 02/28/22 05:47 Plt Clumps, EDTA Not Reportable 02/28/22 05:47 Large Platelets Not Reportable 02/28/22 05:47 Giant Platelets Not Reportable 02/28/22 05:47 Platelet Satelliting Not Reportable 02/28/22 05:47 Plt Morphology Comment Not Reportable 02/28/22 05:47 RBC Morphology Normal 02/28/22 05:47 Dimorphic RBCs Not Reportable 02/28/22 05:47 Polychromasia Not Reportable 02/28/22 05:47 Hypochromasia Not Reportable 02/28/22 05:47 Poikilocytosis Not Reportable 02/28/22 05:47 Anisocytosis Not Reportable 02/28/22 05:47 Microcytosis Not Reportable 02/28/22 05:47 Macrocytosis Not Reportable 02/28/22 05:47 Spherocytes Not Reportable 02/28/22 05:47 Pappenheimer Bodies Not Reportable 02/28/22 05:47 Sickle Cells Not Reportable 02/28/22 05:47 Target Cells Not Reportable 02/28/22 05:47 Tear Drop Cells Not Reportable 02/28/22 05:47 Ovalocytes Not Reportable 02/28/22 05:47 Helmet Cells Not Reportable 02/28/22 05:47 Paul-Inkerman Bodies Not Reportable 02/28/22 05:47 [place] Rings Not Reportable 02/28/22 05:47 Waite Cells Not Reportable 02/28/22 05:47 Bite Cells Not Reportable 02/28/22 05:47 Crenated Cell Not Reportable 02/28/22 05:47 Elliptocytes Not Reportable 02/28/22 05:47 Acanthocytes (Spur) Not Reportable 02/28/22 05:47 Rouleaux Not Reportable 02/28/22 05:47 Hemoglobin C Crystals Not Reportable 02/28/22 05:47 Schistocytes Not Reportable 02/28/22 05:47 Malaria parasites Not Reportable 02/28/22 05:47 Yosvany Bodies Not Reportable 02/28/22 05:47 Hem Pathologist Commnt No 02/28/22 05:47 PT 13.3 Sec. (12.2-14.9) 02/27/22 01:22 INR 0.92 (0.87-1.13) 02/27/22 01:22 APTT 31.2 Sec. (24.2-36.6) 02/27/22 01:22 Sodium 140 mmol/L (137-145) 03/03/22 05:18 Potassium 4.0 mmol/L (3.6-5.0) 03/03/22 05:18 Chloride 101.9 mmol/L (98-107) 03/03/22 05:18 Carbon Dioxide 29 mmol/L (22-30) 03/03/22 05:18 Anion Gap 13 mmol/L 03/03/22 05:18 BUN 39 mg/dL (9-20) H 03/03/22 05:18 Creatinine 2.4 mg/dL (0.8-1.3) H 03/03/22 05:18 Estimated GFR 34 ml/min 03/03/22 05:18 BUN/Creatinine Ratio 16 % 03/03/22 05:18 Glucose 103 mg/dL (75-100) H 03/03/22 05:18 POC Glucose 183 mg/dL (70-105) H 03/03/22 11:27 Calcium 8.2 mg/dL (8.4-10.2) L 03/03/22 05:18 Total Bilirubin 0.20 mg/dL (0.1-1.2) 03/02/22 06:07 AST 9 units/L (5-40) 03/02/22 06:07 ALT < 5 units/L (7-56) L 03/02/22 06:07 Alkaline Phosphatase 70 units/L (35-129) 03/02/22 06:07 Troponin T < 0.010 ng/mL (0.00-0.029) 02/27/22 07:34 NT-Pro-B Natriuret Pep 68247 pg/mL (0-900) H 02/27/22 01:22 Total Protein 5.1 g/dL (6.3-8.2) L 03/02/22 06:07 Albumin 2.7 g/dL (3.9-5) L 03/02/22 06:07 Albumin/Globulin Ratio 1.1 % 03/02/22 06:07 Lipase 10 units/L (13-60) L 02/27/22 01:22 Urine Color Yellow (Yellow) 03/01/22 13:39 Urine Turbidity Clear (Clear) 03/01/22 13:39 Urine pH 5.0 (5.0-7.0) 03/01/22 13:39 Ur Specific Thornton 1.016 (1.003-1.030) 03/01/22 13:39 Urine Protein 100 mg/dl mg/dL (Negative) 03/01/22 13:39 Urine Glucose (UA) 50 mg/dL (Negative) 03/01/22 13:39 Urine Ketones Neg mg/dL (Negative) 03/01/22 13:39 Urine Blood Neg (Negative) 03/01/22 13:39 Urine Nitrite Neg (Negative) 03/01/22 13:39 Urine Bilirubin Neg (Negative) 03/01/22 13:39 Urine Urobilinogen 2.0 mg/dL (<2.0) 03/01/22 13:39 Ur Leukocyte Esterase Neg (Negative) 03/01/22 13:39 Urine WBC (Auto) 3.0 /HPF (0.0-6.0) 03/01/22 13:39 Urine RBC (Auto) 2.0 /HPF (0.0-6.0) 03/01/22 13:39 Urine Bacteria (Auto) 1+ /HPF (Negative) 03/01/22 13:39 Urine Mucus Few /HPF 03/01/22 13:39 Urine Yeast (Budding) Few /HPF 03/01/22 13:39 Urine Creatinine 245.7 mg/dL (0.1-20.0) H 03/01/22 13:39 Protein/Creatinin Ratio 0.78 03/01/22 13:39 Urine Sodium 10 mmol/L 03/01/22 13:39 Urine Total Protein 192 mg/dL (5-11.8) H 03/01/22 13:39 Wagner/IV: Voiding Method Urinal Active Medications - Current Medications Current Medications: Generic Name Dose Route Start Last Admin Trade Name Freq PRN Reason Stop Dose Admin Acetaminophen 650 mg 02/27/22 04:04 Acetaminophen 325 Mg Tab PO Q4H PRN Pain MILD(1-3)/Fever >100.5/DEE Albuterol 2.5 mg 02/27/22 04:04 Albuterol 2.5 Mg/3 Ml Nebu IH Q3HRT PRN Shortness Of Breath Albuterol/Ipratropium 1 ampul 02/27/22 20:00 03/03/22 14:20 Ipratropium/Albuterol Sulfate 3 Ml Ampul.Neb IH Not Given TIDRT YENNI Amlodipine Besylate 10 mg 02/27/22 10:00 03/03/22 16:28 Amlodipine 10 Mg Tab PO 10 mg QDAY YENNI Administration Aspirin 81 mg 02/27/22 10:00 03/03/22 16:31 Aspirin 81 Mg Tab Chew PO 81 mg QDAY YENNI Administration Atorvastatin Calcium 40 mg 02/27/22 22:00 03/02/22 21:18 Atorvastatin 40 Mg Tab PO 40 mg QHS YENNI Administration Carvedilol 6.25 mg 02/27/22 14:00 03/03/22 16:30 Carvedilol 6.25 Mg Tab PO 6.25 mg BID YENNI Administration Clonidine HCl 0.1 mg 02/27/22 10:00 03/03/22 16:28 Clonidine 0.1 Mg Tab PO 0.1 mg BID YENNI Administration Dextrose 50 ml 02/27/22 04:04 Dextrose 50% In Water (25gm) 50 Ml Syringe IV Q30MIN PRN Hypoglycemia Protocol Famotidine 10 mg 02/27/22 10:00 03/03/22 16:28 Famotidine 10 Mg Tab PO 10 mg BID YENNI Administration Furosemide 40 mg 03/01/22 10:00 03/03/22 16:29 Furosemide 40 Mg Tab PO 40 mg QDAY YENNI Administration Heparin Sodium (Porcine) 5,000 unit 02/27/22 10:00 03/03/22 16:31 Heparin 5,000 Unit/1 Ml Vial SUB-Q 5,000 unit Q12HR YENNI Administration Hydralazine HCl 50 mg 02/27/22 06:00 03/03/22 16:29 Hydralazine 25 Mg Tab PO 50 mg Q8HR YENNI Administration Hydromorphone HCl 0.5 mg 02/27/22 04:04 02/27/22 09:44 Hydromorphone 1 Mg/1 Ml Inj IV 0.5 mg Q3H PRN Administration Pain , Severe (7-10) Insulin Human Lispro 0 unit 02/27/22 07:30 03/03/22 14:04 Insulin Lispro 100 Unit/Ml SUB-Q Not Given ACHS [facility] Protocol Isosorbide Dinitrate 20 mg 02/28/22 14:00 03/03/22 16:29 Isosorbide Dinitrate 20 Mg Tab PO 20 mg Q8HR YENNI Administration Morphine Sulfate 2 mg 02/27/22 04:04 02/27/22 18:16 Morphine 2 Mg/1 Ml Inj IV 2 mg Q4H PRN Administration Pain, Moderate (4-6) Ondansetron HCl 4 mg 02/27/22 04:04 02/28/22 05:51 Ondansetron 4 Mg/2 Ml Inj IV 4 mg Q8H PRN Administration Nausea And Vomiting Oxycodone/Acetaminophen 1 tab 03/01/22 11:00 03/02/22 09:35 Oxycodone /Acetaminophen 5-325mg Tab PO 1 tab Q6H PRN Administration Pain, Moderate (4-6) Sertraline HCl 75 mg 02/27/22 10:00 03/03/22 16:26 Sertraline 50 Mg Tab PO 75 mg QAM YENNI Administration Sodium Chloride 10 ml 02/27/22 10:00 03/03/22 16:32 Sodium Chloride 0.9% 10 Ml Flush Syringe IV 10 ml BID YENNI Administration Sodium Chloride 10 ml 02/27/22 04:04 Sodium Chloride 0.9% 10 Ml Flush Syringe IV PRN PRN LINE FLUSH Trazodone HCl 50 mg 02/27/22 22:00 03/02/22 21:18 Trazodone 50 Mg Tab PO 50 mg QHS YENNI Administration Nutrition/Malnutrition Assess - Dietary Evaluation Nutrition/Malnutrition Findings: Nutrition Notes Start: 02/27/22 15:05 Freq: Status: Active Protocol: Document 02/27/22 15:05 BUCKY (Rec: 02/27/22 15:18 [email or web address] [id number]) Nutrition Notes Need for Assessment generated from: MD Order,Education Initial or Follow up Brief Note Current Diagnosis CKD(stage I-IV),Diabetes, Hypertension Other Pertinent Diagnosis CHF, Pulmonary Edema, Pleural Effusion, Liver Disease, PVD, Seizures. Current Diet Cardiac/Consistent Carbohydrates Diet (since B ). Height 5 ft 5 in Weight 74.2 kg [place] Body Weight (kg) 61.81 BMI 27.2 Intake Prior to Admission Good Weight change and time frame Pt denies having loss body weight MALTSTER. Weight Status Overweight Subjective/Other Information RD consult for nutrition education. No reports available on Pt's PO intake of meals at the time , will assess at F/U. Pt is on Room Air, O2 saturation @ 94%, according to Physical Assessment history notes. Pt still in critical condition , not a candidate for Nutrition Education at the time, will assess feasibility on F/U. Percent of energy/protein needs met: Prescribed Cardiac/Consistent Carbohydrates Diet provides for energy/protein needs (1, 977 Kcal/86 g) during LOS. Nutrition Intervention Follow-Up By: 03/04/22 Additional Comments Nutrition education will be provided on F/U, if feasible. Continue monitoring food tolerance, %PO intake of meals , and BM.
[2022-03-03] MEDS: traZODone 50 MG TAB PO SCH (22:38)
--- NOTE | 2022-03-04 08:02 | Discharge Summary ---
Providers - Providers Date of Admission: 02/27/22 04:04 Date of discharge: 03/04/22 Attending physician: LEATHA SIMON MD 02/27/22 04:04 Consult to Dietitian/Nutrition [CONS] Routine Physician Instructions: Reason For Exam: Reason for Consult: Diet education 02/27/22 08:45 Consult to Physician [CONS] Routine Comment: Consulting Provider: KATERYNA CLIFFORD Physician Instructions: Reason For Exam: New onset HF 03/01/22 08:22 Consult to Physician [CONS] Routine Comment: Consulting Provider: GRACIE NOLAN Physician Instructions: Reason For Exam: NICKY 03/02/22 20:07 Physical Therapy Evaluation and Treat [CONS] Routine Comment: Reason For Exam: impaired physical mobility 03/03/22 11:57 Occupational Therapy Evaluate and Treat [CONS] Routine Comment: Reason For Exam: eval and treat as indicated Primary care physician: SACHI WU Hospitalization Reason for admission: CHF exacerbation Condition: Stable Hospital course: 56-year-old male with history of hypertension and diabetes who presented with progressive shortness of breath. He was found to have a BNP of 28,000. Chest x-ray was significant for pulmonary edema. He was admitted for heart failure exacerbation. Cardiology was consulted. Echocardiogram showed ejection fraction of 35 to 40%. It was also significant for severe pulmonary hypertension. Patient sustained an NICKY secondary to diuresis. Diuresis was stopped and his renal function recovered. He was eventually weaned from supplem ental oxygen to room air. Home oxygen evaluation determined that he did not require oxygen at discharge. Once clinically stable he was discharged home. Disposition: 06 HOME HEALTH CARE SERVICE Final Discharge Diagnosis (Prints w/discharge instructions): Acute on chronic systolic heart failure. severe pulmonary hypertension. Acute hypoxic respir atory failure. NICKY on CKD stage III. Cardiorenal syndrome. Insulin-dependent type 2 diabetes mellitus. Hypertension Time spent for discharge: 45 minutes Core Measure Documentation - Palliative Care Palliative Care/ Comfort Measures: Not Applicable - Core Measures Any of the following diagnoses?: heart failure - Heart Failure Discharge Requirements CLAUDETTE/ARB for LVSD if EF <40%: No Reason for no CLAUDETTE/ARB: Renal impairment Beta sarika at discharge: Yes Exam - Physical Exam Narrative exam: GENERAL: Well-developed well-nourished. In no acute distress. HEENT: Normocephalic. Atraumatic. CHEST/LUNGS: CTAB on room air HEART/CARDIOVASCULAR: RRR. No murmur, rubs or gallops appreciated. ABDOMEN: +BS. NT/ND. SKIN: No rashes noted. NEURO: No focal motor deficit. EXTREMITIES: No cyanosis, clubbing or edema. PSYCH: Cooperative. - Constitutional Vitals: Temp Pulse Resp BP Pulse Ox 98.7 F 72 16 150/79 90 03/04/22 05:07 03/04/22 05:07 03/04/22 05:07 03/04/22 05:07 03/04/22 05:07 Plan Care Plan Goals: He is with your primary care doctor's earliest convenience. Also make sure to follow-up with your applique sewer. It is important to regularly see your doctors and to take all medications as prescribed. This will only help to improve your quality of life and reduce hospitalizations. Follow up with: SACHI WU MD [Primary Care Provider] - 7 Days Prescriptions: AtorvaSTATin [Lipitor] 40 mg PO QHS 30 Days #30 tablet amLODIPine 10 mg PO QDAY 30 Days #30 tablet hydrALAZINE [Apresoline TAB] 50 mg PO Q8HR #180 tablet Aspirin [Aspirin BABY CHEW TAB] 81 mg PO QDAY 30 Days #30 tab.chew cloNIDine [Catapres] 0.1 mg PO BID 30 Days #60 tablet carvediloL [Coreg] 6.25 mg PO BID 30 Days #60 tablet Isosorbide Dinitrate [Isordil] 20 mg PO Q8HR 30 Days #90 tablet Furosemide [Lasix TAB] 40 mg PO QDAY 30 Days #30 tablet
[2022-03-04] MEDS: INSULIN LISPRO 100 UNIT/ML SUB-Q SCH ×5 (08:31→17:44)
--- NOTE | 2022-03-04 08:38 | Progress Note ---
Assessment and Plan - Patient Problems (1) Acute pulmonary edema Current Visit: Yes Status: Acute Plan to address problem: 56-year-old man admitted with uncontrolled hypertension, systolic blood pressure greater than 200, associated with acute pulmonary edema. Echocardiogram shows left ventricular systolic ejection fraction moderately impaired, 35 to 40% with moderate concentric left ventricular per trophy. He has history of heart failure and hypertension for which he is admittedly noncompliant with recommended medical therapy and dietary salt restriction. In addition to resumption of guideline directed medical therapy and optimal blood pressure control, most important intervention at this time is licensed clinical social worker consultation to provide options for outpatient management with regards to procurement of his medications and optimal outpatient cardiac and medical follow-up. Subjective Date of service: 03/04/22 Principal diagnosis: CHF Interval history: Patient is comfortable, no new cardiac complaints, no cardiac events reported. Objective Vital Signs Temp Pulse Resp BP Pulse Ox 03/04/22 08:13 98.5 F 72 156/81 91 03/04/22 05:07 98.7 F 72 16 150/79 90 03/03/22 23:44 98.0 F 72 18 141/79 91 03/03/22 22:39 69 150/83 03/03/22 22:38 69 150/83 03/03/22 22:00 100 03/03/22 21:59 97 03/03/22 21:11 98.4 F 70 16 161/94 95 03/03/22 16:30 73 03/03/22 16:29 73 03/03/22 16:28 73 03/03/22 15:34 99.0 F 76 20 181/105 93 03/03/22 12:00 73 03/03/22 11:22 98.0 F 73 20 169/92 94 03/03/22 10:00 94 03/03/22 08:40 95 - Physical Examination General: No Apparent Distress HEENT: Positive: PERRL Neck: Positive: neck supple Cardiac: Positive: Reg Rate and Rhythm Lungs: Positive: Decreased Breath Sounds Neuro: Positive: Grossly Intact Abdomen: Positive: Soft, Active Bowel Sounds Skin: Negative: Rash Extremities: Present: edema (Minimal), warm - Labs and Meds Comprehensive Metabolic Panel 03/04/22 Range/Units 05:11 Creatinine 2.3 H (0.8-1.3) mg/dL
[2022-03-04] MEDS: hydrALAZINE 25 MG TAB PO SCH ×2 (09:39→14:00)
[2022-03-04] MEDS: ISOSORBIDE DINITRATE 20 MG TAB PO SCH ×2 (09:39→14:30)
[2022-03-04] MEDS: ASPIRIN 81 MG TAB CHEW PO SCH (09:52)
[2022-03-04] MEDS: cloNIDine 0.1 MG TAB PO SCH (09:52)
[2022-03-04] MEDS: carvediloL 6.25 MG TAB PO SCH (09:52)
[2022-03-04] MEDS: FAMOTIDINE 10 MG TAB PO SCH (09:52)
[2022-03-04] MEDS: HEPARIN 5,000 UNIT/1 ML VIAL SUB-Q SCH (09:53)
[2022-03-04] MEDS: FUROSEMIDE 40 MG TAB PO SCH (09:53)
[2022-03-04] MEDS: amLODIPine 10 MG TAB PO SCH (09:53)
[2022-03-04] MEDS: SERTRALINE 50 MG TAB PO SCH (09:53)
[2022-03-04] MEDS: IPRATROPIUM/ALBUTEROL SULFATE 3 ML AMPUL.NEB IH SCH ×2 (10:50→13:20)
--- NOTE | 2022-03-04 12:19 | Progress Note ---
Assessment and Plan 1. Acute kidney injury: Vasomotor NICKY superimposed on CKD in the setting of decompensated CHF. Cardiorenal syndrome. Renal US negative for hydro. Monitor renal function. Creatinine level continue to improve. Avoid nephrotoxic agents. Meds dosage based on GFR. 2. FEN: Volume overload, diuretics, monitor. Monitor lytes and volume status. 3. Decompensated HFrEF, POA: EF 35-40%. Coreg, Clonidine and Hydralazine. Followed by Cards. Monitor. 4. Severe pulmonary hypertension. Continue to monitor. 5. 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 Monitor. 6. Uncontrolled Hypertension: Current BP is better. Monitor. 7. Normocytic anemia, POA: Monitor. 8. Medical noncompliance: Counseled. Will sign off. F/u in 2 weeks after d/c. Subjective: Patient was seen and examined at the bedside. Doing ok. Examination: General appearance: well-developed, appears stated age, no distress, obese HEENT: atraumatic Neck: trachea midline Respiratory: ctab Heart: S1S2, regular, no murmur Abdomen: soft, bowel sounds heard, NT Integumentary: no obvious rash Neurologic: AO, blindness, able to move extremities Ext: LE edema is improving Subjective Date of service: 03/04/22 Principal diagnosis: CHF Objective - Vital Signs Vital signs: Vital Signs - 12hr 03/04/22 03/04/22 05:07 08:13 Temperature 98.7 F 98.5 F Pulse Rate 72 72 Respiratory 16 Rate Blood Pressure 150/79 156/81 O2 Sat by Pulse 90 91 Oximetry - Lab 02/28/22 05:47 03/04/22 05:11 Most recent lab results Calcium 8.2 mg/dL (8.4-10.2) L 03/03/22 05:18 Urine Creatinine 245.7 mg/dL (0.1-20.0) H 03/01/22 13:39 Urine Sodium 10 mmol/L 03/01/22 13:39 Urine Total Protein 192 mg/dL (5-11.8) H 03/01/22 13:39 Medications & Allergies - Medications Allergies/Adverse Reactions: Allergies Penicillins Allergy (Verified 09/20/17 16:18) Hives Home Medications: Home Medications Medication Instructions Recorded Confirmed Last Taken Type Insulin NPH/Regular [NovoLIN 70/30] 10 units SQ QAM #30 dose 03/20/14 03/01/22 04/06/21 Rx Sertraline [Zoloft] 75 mg PO QAM #30 tablet 03/20/14 03/01/22 04/06/21 Rx traZODone [Desyrel] 50 mg PO QHS #30 tablet 02/23/21 03/01/22 04/06/21 Rx Aspirin [Aspirin BABY CHEW TAB] 81 mg PO QDAY 30 Days #30 tab.chew 03/04/22 Unknown Rx AtorvaSTATin [Lipitor] 40 mg PO QHS 30 Days #30 tablet 03/04/22 Unknown Rx Furosemide [Lasix TAB] 40 mg PO QDAY 30 Days #30 tablet 03/04/22 Unknown Rx Isosorbide Dinitrate [Isordil] 20 mg PO Q8HR 30 Days #90 tablet 03/04/22 Unknown Rx amLODIPine 10 mg PO QDAY 30 Days #30 tablet 03/04/22 Unknown Rx carvediloL [Coreg] 6.25 mg PO BID 30 Days #60 tablet 03/04/22 Unknown Rx cloNIDine [Catapres] 0.1 mg PO BID 30 Days #60 tablet 03/04/22 Unknown Rx hydrALAZINE [Apresoline TAB] 50 mg PO Q8HR #180 tablet 03/04/22 Unknown Rx Active Medications: Generic Name Dose Route Start Last Admin Trade Name Freq PRN Reason Stop Dose Admin Acetaminophen 650 mg 02/27/22 04:04 Acetaminophen 325 Mg Tab PO Q4H PRN Pain MILD(1-3)/Fever >100.5/DEE Albuterol 2.5 mg 02/27/22 04:04 Albuterol 2.5 Mg/3 Ml Nebu IH Q3HRT PRN Shortness Of Breath Albuterol/Ipratropium 1 ampul 02/27/22 20:00 03/04/22 10:50 Ipratropium/Albuterol Sulfate 3 Ml Ampul.Neb IH 1 ampul TIDRT YENNI Administration Amlodipine Besylate 10 mg 02/27/22 10:00 03/04/22 09:53 Amlodipine 10 Mg Tab PO 10 mg QDAY YENNI Administration Aspirin 81 mg 02/27/22 10:00 03/04/22 09:52 Aspirin 81 Mg Tab Chew PO 81 mg QDAY YENNI Administration Atorvastatin Calcium 40 mg 02/27/22 22:00 03/03/22 22:38 Atorvastatin 40 Mg Tab PO 40 mg QHS YENNI Administration Carvedilol 6.25 mg 02/27/22 14:00 03/04/22 09:52 Carvedilol 6.25 Mg Tab PO 6.25 mg BID YENNI Administration Clonidine HCl 0.1 mg 02/27/22 10:00 03/04/22 09:52 Clonidine 0.1 Mg Tab PO 0.1 mg BID YENNI Administration Dextrose 50 ml 02/27/22 04:04 Dextrose 50% In Water (25gm) 50 Ml Syringe IV Q30MIN PRN Hypoglycemia Protocol Famotidine 10 mg 02/27/22 10:00 03/04/22 09:52 Famotidine 10 Mg Tab PO 10 mg BID YENNI Administration Furosemide 40 mg 03/01/22 10:00 03/04/22 09:53 Furosemide 40 Mg Tab PO 40 mg QDAY YENNI Administration Heparin Sodium (Porcine) 5,000 unit 02/27/22 10:00 03/04/22 09:53 Heparin 5,000 Unit/1 Ml Vial SUB-Q 5,000 unit Q12HR YENNI Administration Hydralazine HCl 50 mg 02/27/22 06:00 03/04/22 09:39 Hydralazine 25 Mg Tab PO 50 mg Q8HR YENNI Administration Hydromorphone HCl 0.5 mg 02/27/22 04:04 02/27/22 09:44 Hydromorphone 1 Mg/1 Ml Inj IV 0.5 mg Q3H PRN Administration Pain , Severe (7-10) Insulin Human Lispro 0 unit 02/27/22 07:30 03/04/22 08:47 Insulin Lispro 100 Unit/Ml SUB-Q Not Given ACHS [facility] Protocol Isosorbide Dinitrate 20 mg 02/28/22 14:00 03/04/22 09:39 Isosorbide Dinitrate 20 Mg Tab PO 20 mg Q8HR YENNI Administration Morphine Sulfate 2 mg 02/27/22 04:04 02/27/22 18:16 Morphine 2 Mg/1 Ml Inj IV 2 mg Q4H PRN Administration Pain, Moderate (4-6) Ondansetron HCl 4 mg 02/27/22 04:04 02/28/22 05:51 Ondansetron 4 Mg/2 Ml Inj IV 4 mg Q8H PRN Administration Nausea And Vomiting Oxycodone/Acetaminophen 1 tab 03/01/22 11:00 03/02/22 09:35 Oxycodone /Acetaminophen 5-325mg Tab PO 1 tab Q6H PRN Administration Pain, Moderate (4-6) Sertraline HCl 75 mg 02/27/22 10:00 03/04/22 09:53 Sertraline 50 Mg Tab PO 75 mg QAM YENNI Administration Sodium Chloride 10 ml 02/27/22 10:00 03/04/22 09:39 Sodium Chloride 0.9% 10 Ml Flush Syringe IV 10 ml BID YENNI Administration Sodium Chloride 10 ml 02/27/22 04:04 Sodium Chloride 0.9% 10 Ml Flush Syringe IV PRN PRN LINE FLUSH Trazodone HCl 50 mg 02/27/22 22:00 03/03/22 22:38 Trazodone 50 Mg Tab PO 50 mg QHS YENNI Administration
[2022-03-04 17:56] VITALS: BP 139/83
== END 2022-03-04 19:39 | disposition home health service (06) | DRG 291 ==
LOC: ED 22:03 → 4A 02-27 04:04
PROVIDERS: ADMIT Hospitalist; ATTEND Student in an Organized Health Care Education/Training Program
DX: I13.0 Hypertensive heart and chronic kidney disease with heart failure and stage 1 through stage 4 chronic kidney disease, or unspecified chronic kidney disease (principal); I50.23 Acute on chronic systolic (congestive) heart failure; J96.01 Acute respiratory failure with hypoxia; J81.0 Acute pulmonary edema; N17.9 Acute kidney failure, unspecified; E87.2 Acidosis; E11.22 Type 2 diabetes mellitus with diabetic chronic kidney disease; D64.9 Anemia, unspecified; E11.65 Type 2 diabetes mellitus with hyperglycemia; I11.0 Hypertensive heart disease with heart failure; N18.30 Chronic kidney disease, stage 3 unspecified; I27.20 Pulmonary hypertension, unspecified; Z91.14 Patient's other noncompliance with medication regimen; Z88.0 Allergy status to penicillin
CPT/HCPCS: 36415; 71045; 76770; 80048; 80053; 81001; 82565; 82570; 82962; 83690; 83880; 84156; 84300; 84484; 85007; 85025; 85610; 85730; 93005; 93306; 94640; 94760; G0378; Q9967; C8929; J1170; J1644; J1815; J1940; J2270; J2405